=== PATIENT | female | born 1950 | race Caucasian/White ===

== ENCOUNTER 2024-03-05 11:39 | Inpatient (IN) ==
[2024-03-05 13:43] LABS: Albumin Globulin Ratio 0.9 (0.9-2); Albumin Level 2.2 gm/dl (3.4-5.0); BUN Creatinine Ratio 23.7 (10-20); Bilirubin,Total 3.6 mg/dl (0.2-1.0); Calcium 7.4 mg/dl (8.6-10.3); Creatinine Clr Calc Pharmacy 49.5 ml/min; Globulin 2.4 gm/dl (2.5-4.0); Magnesium 1.5 mg/dl (1.7-2.4); Potassium 3.2 mmol/L (3.5-5.1); Total Protein 4.6 gm/dl (6.0-8.3)
[2024-03-05 13:48] LABS: INR 1.3 (0.9-1.1); Prothrombin Time 13.9 Seconds (9.0-12.0)
[2024-03-05] MEDS: SODIUM CHLORIDE 0.9% 500 ML IV SCH (14:08)
[2024-03-05] MEDS: MAGNESIUM SULFATE / D5W 1 GM/100 ML BAG IV STA (14:08)
[2024-03-05 14:22] LABS: Hematocrit (blood only) 21.5 % (37.0-47.0); Hemoglobin 7.1 g/dl (12.0-16.0); Mean Corpuscular Hemoglobin 28.4 pg (25.0-34.0); Platelet Count 6 K/uL (130-400); RDW Coefficient of Variation 15.3 % (11.5-14.5); RDW Standard Deviation 48.2 fL (36.4-46.3); White Blood Count 0.67 K/ul (4.8-10.8)
--- NOTE | 2024-03-05 14:38 | Emergency Department Note ---
Impression & Plan Pancytopenia ED Provider Note ED Provider Note NAME: XENIA BOYD AGE:73 SEX: Female : 1950 ARRIVES VIA: Private vehicle INFORMANT: Patient ED PROVIDER(s): Lee Ann Chen DO CHIEF COMPLAINT: Referred by oncology HPI: This is a 73-year-old female with a history of CML who presents emerged department at the referral of her oncologist due to concern for need for transfusion. Family bedside states she has been getting outpatient transfusions frequently since her diagnosis. Her last chemo treatment was the beginning of February and she is due again soon. She denies fevers/chills, shortness of breath, vomiting, or abdominal pain. She states she recently had swelling of her lower extremities and now has bruising due to her low platelets. During her last admission she was told to stop taking her prior blood thinning medication. She does not currently take any aspirin, Plavix, or other anticoagulation. PAST MEDICAL HISTORY:See Below PAST SURGICAL HISTORY:See Below FAMILY HISTORY:See Below SOCIAL HISTORY:See Below HOME MEDICATIONS:See Below ALLERGIES:See Below VITALS:See Below PHYSICAL EXAMINATION: GENERAL: alert, well appearing, well nourished, no distress, non-toxic HEAD: nc/at, small ecchymotic area noted superior to left eyebrow at inferior left forehead EYE EXAM: normal conjunctiva, PERRL and EOM's grossly intact OROPHARYNX: no exudate, no erythema, lips, buccal mucosa, and tongue normal and mucous membranes are moist, poor dentition NECK: supple, no nuchal rigidity, no adenopathy, non-tender LUNGS: Clear to auscultation. Normal chest wall mechanics, no w/r/r HEART: no murmurs, S1 normal and S2 normal ABDOMEN: abdomen soft, non-tender, normo-active bowel sounds, no masses, no rebound or guarding. SKIN: no rashes, petechiae, orbruising UPPER EXTREMITIES: upper extremities are grossly normal. FROM, nml pulses b/l. Scattered and marked areas noted to upper extremities additionally LOWER EXTREMITIES: 2+ b/l pitting edema. B/l macular ecchymotic areas, FROM, nml pulses b/l. NEURO EXAM: Normal sensorium, cranial nerves II-XII grossly intact, normal speech, no facial droop,nogross weakness of arms, no gross weakness of legs. Gross sensation intact. No ataxia. Vital Signs: reviewed and remarkable Differential Diagnosis: Anemia, worsening malignancy, medication ADR, acute blood loss, sepsis, CKD, as well as others were considered MEDICAL DECISION MAKING: This is a 73-year-old female sent to the emergency department by oncology for transfusions as they were unable to arrange for her to have outpatient transfusions. Patient with history of leukemia and has been getting routine transfusions. She was noted on labs to have anemia and thrombocytopenia which is not abnormal for her. She was afebrile vital signs stable. She had no new or evolving symptoms on my exam and stated she was sent in to be transfused. We did attempt to contact patient's primary oncologist however no return call. I did contact our on-call oncologist here who recommended 1 unit of platelets and 1 unit of packed red cells. Transfusion consent form signed at bedside, and these were ordered. Transfusion was began while patient was in the emergency department. She remained hemodynamically stable. She had no new or evolving complaints. Patient signed out to Dr. Vieira awaiting completion of transfusion and recheck of her condition with plan for likely discharge pending any other changes. Consultation(s): 1508: Discussed with Dr. Zepeda. No return call from patient's primary oncologist, Dr. Reyes. She recommends 1 unit of platelets and 1 unit of packed red cells at this time. She states if patient does well through the transfusions, she could safely be discharged as that is typically the pain for these patients when they are sent to the [facility] for transfusions. ER Treatment Provided: See below 3735: Patient and family updated on discussion with oncology. Patient's transfusions actively occurring. Diagnostics Interpreted By Me: -ECG: Normal sinus at 93, normal axis, normal intervals, PAC noted, no acute ST/T wave changes -Cardiac Monitoring: An order was placed for continuous cardiac monitoring. The monitor shows a rate of 82 with normal sinus rhythm. -Laboratory studies: As stated above and show below. Triage Nursing Note Reviewed Prior/Outside Records Reviewed Critical care: Critical care of 39 min performed to assess and manage high likelihood of life- threatening pancytopenia, involving labs and imaging performed with assessment to evaluate pancytopenia diagnosis with frequent reassessment. This time includes bedside time, treatment discussions with patient/family/consultants, documentation time and excludes procedure time. Past Med/Surg History Problem List (Updated 03/06/24 @ 15:04 by WEI Murphy) Sacral ulcer CMML (chronic myelomonocytic leukemia) AML (acute myeloblastic leukemia) Acute hypoxemic respiratory failure Pancytopenia (Acute) Social History Smoking Status: Never smoker Hx Alcohol Use: No Hx Substance Use: No Preferred Language: Lithuanian Communication Ability: Effective [employer] Required: No Beliefs That Will Affect Care: None Current Living Situation: Rehab Current Living Situation Comment: [facility] currently, home [place]. Other Information That Helps Us Care for You: No Feels Safe at Home: Yes Safety Concerns: Feels Safe At This Time Assistive Devices: Cane and Walker Assistive Devices Comment: Shower chair Allergies Allergies Allergy/AdvReac Type Severity Reaction Status Date / Time pollen extracts Allergy Unknown UNKOWN Unverified 03/05/24 18:46 Home Meds Home Medications Medication Instructions Recorded Confirmed acetaminophen 325 mg tablet 650 mg PO Q6H PRN Fever greater 01/27/24 03/05/24 (Tylenol) than 100/Pain acyclovir 400 mg tablet 400 mg PO BID 01/27/24 03/05/24 bisacodyl 10 mg rectal suppository 10 mg IA DIRECTED PRN 01/27/24 03/05/24 Constipation cholecalciferol (vitamin D3) 25 25 mcg PO QAM 01/27/24 03/05/24 mcg (1,000 unit) tablet ciprofloxacin HCl 500 mg tablet 500 mg PO BID 01/27/24 03/05/24 folic acid 1 mg tablet 1 mg PO QAM 01/27/24 03/05/24 furosemide 40 mg tablet 40 mg PO QAM 01/27/24 03/05/24 multivitamin 1 tab PO QAM 01/27/24 03/05/24 ondansetron 4 mg disintegrating 4 mg PO Q6H PRN NAUSEA/VOMITTING 01/27/24 03/05/24 tablet pantoprazole 40 mg tablet,delayed 40 mg PO DAILYBB 01/27/24 03/05/24 release posaconazole 100 mg tablet,delayed See Rx Instructions .Route .COMPLEX 01/27/24 03/05/24 release sodium phosphates 19 gram-7 118 ml IA DAILY PRN CONSTIPATION 01/27/24 03/05/24 gram/118 mL enema (Fleet Enema) Magic Mix See Rx Instructions .Route .COMPLEX 03/05/24 03/05/24 calcium carbonate 500 mg PO QDL 03/05/24 03/05/24 carbamide peroxide 6.5 % ear drops 5 drp otic (ear) BID 03/05/24 03/05/24 (Debrox) magnesium hydroxide 400 mg/5 mL 2,400 mg PO DAILY PRN Constipation 03/05/24 03/05/24 oral suspension (Milk of Magnesia) metoprolol succinate 100 mg 100 mg PO DAILY 03/05/24 03/05/24 capsule sprinkle, ext. release 24 hr polyvinyl alcohol 1.4 % eye drops 1 drp OPB Q8H Blepharitis 03/05/24 03/05/24 (Artificial Tears (polyvinyl alcohol)) potassium chloride 20 mEq/15 mL 60 meq PO Q12H 03/05/24 03/05/24 oral liquid Results & Data (ED) Vital Signs Vital Signs - 24 hr 03/05/24 17:30 03/05/24 17:30 03/05/24 17:45 Temperature Temperature Source Pulse Rate 67 69 74 Pulse Rate [Apical] Pulse Rate from SpO2 Sensor 73 79 Pulse Rhythm [Apical] Pulse Strength [Apical] Respiratory Rate 24 29 H Respiratory Effort / Characteristics Respiratory Depth Respiratory Pattern Blood Pressure Blood Pressure [Right Arm] Blood Pressure Mean Blood Pressure Mean [Right Arm] Blood Pressure Position [Right Arm] Pulse Oximetry 98 98 Oxygen Delivery Method 03/05/24 18:21 03/05/24 18:30 03/05/24 19:00 Temperature Temperature Source Pulse Rate 80 105 H 72 Pulse Rate [Apical] Pulse Rate from SpO2 Sensor 67 69 78 Pulse Rhythm [Apical] Pulse Strength [Apical] Respiratory Rate 27 H 34 H 26 H Respiratory Effort / Characteristics Respiratory Depth Respiratory Pattern Blood Pressure Blood Pressure [Right Arm] Blood Pressure Mean Blood Pressure Mean [Right Arm] Blood Pressure Position [Right Arm] Pulse Oximetry 97 97 97 Oxygen Delivery Method Room Air 03/05/24 19:30 03/05/24 20:05 03/05/24 20:30 Temperature 36.8 C Temperature Source Oral Pulse Rate 66 Pulse Rate [Apical] 66 Pulse Rate from SpO2 Sensor 66 Pulse Rhythm [Apical] Regular Pulse Strength [Apical] Normal Respiratory Rate 20 22 Respiratory Effort / Characteristics Non-Labored Spontaneous Respiratory Depth Normal Respiratory Pattern Regular Blood Pressure 106/46 L Blood Pressure [Right Arm] 119/66 Blood Pressure Mean 71 Blood Pressure Mean [Right Arm] 83 Blood Pressure Position [Right Arm] Sitting Pulse Oximetry 97 98 Oxygen Delivery Method Room Air Room Air 03/05/24 20:30 03/05/24 20:30 03/05/24 20:42 Temperature Temperature Source Pulse Rate Pulse Rate [Apical] Pulse Rate from SpO2 Sensor 64 66 Pulse Rhythm [Apical] Pulse Strength [Apical] Respiratory Rate 27 H 28 H Respiratory Effort / Characteristics Respiratory Depth Respiratory Pattern Blood Pressure 106/46 L 106/46 L Blood Pressure [Right Arm] Blood Pressure Mean 71 66 Blood Pressure Mean [Right Arm] Blood Pressure Position [Right Arm] Pulse Oximetry 99 99 Oxygen Delivery Method 03/05/24 20:57 03/05/24 21:00 03/05/24 22:11 Temperature Temperature Source Pulse Rate 102 H 73 85 Pulse Rate [Apical] Pulse Rate from SpO2 Sensor 103 H 66 Pulse Rhythm [Apical] Pulse Strength [Apical] Respiratory Rate 32 H 25 H Respiratory Effort / Characteristics Respiratory Depth Respiratory Pattern Blood Pressure Blood Pressure [Right Arm] Blood Pressure Mean Blood Pressure Mean [Right Arm] Blood Pressure Position [Right Arm] Pulse Oximetry 100 86 L Oxygen Delivery Method 03/05/24 23:15 Temperature Temperature Source Pulse Rate 65 Pulse Rate [Apical] Pulse Rate from SpO2 Sensor Pulse Rhythm [Apical] Pulse Strength [Apical] Respiratory Rate 20 Respiratory Effort / Characteristics Respiratory Depth Respiratory Pattern Blood Pressure 112/61 Blood Pressure [Right Arm] Blood Pressure Mean 78 Blood Pressure Mean [Right Arm] Blood Pressure Position [Right Arm] Pulse Oximetry 100 Oxygen Delivery Method Room Air Laboratory Data 03/06/24 14:35 03/06/24 14:35 Lab Results 03/05/24 Range/Units 13:04 WBC 0.67 L* (4.8-10.8) K/ul RBC 2.50 L (4.20-5.40) M/uL Hgb 7.1 L (12.0-16.0) g/dl Hct 21.5 L (37.0-47.0) % MCV 86.0 (80.0-100.0) fL MCH 28.4 (25.0-34.0) pg MCHC 33.0 (32.0-36.0) g/dL RDW Std Deviation 48.2 H (36.4-46.3) fL RDW Coeff of Juan Pablo 15.3 H (11.5-14.5) % Plt Count 6 L* (130-400) K/uL Neutrophils % (Manual) 36 % Lymphocytes % (Manual) 45 % Metamyelocytes % (Man) 13 % Myelocytes % (Man) 5 % Promyelocytes % (Man) 1 % Neutrophils # (Manual) 0.24 L (1.40-6.50) K/uL Total Absolute Neuts 0.24 L* (1.4-6.5) K/uL Lymphocytes # (Manual) 0.30 L (1.2-3.4) K/uL Total Abs Lymphocytes 0.30 L (1.2-3.4) K/uL Metamyelocytes # (Man) 0.09 H (0-0) K/uL Myelocytes # (Manual) 0.03 H (0-0) K/uL Promyelocytes # (Man) 0.01 H (0-0) K/uL Toxic Granulation 3+ Toxic Vacuolation Occasional Dohle Bodies 3+ Target Cells 1+ Tear Drop Cells 1+ Echinocytes 1+ PT 13.9 H (9.0-12.0) Seconds INR 1.3 H (0.9-1.1) Sodium 148 H (136-145) mmol/L Potassium 3.2 L (3.5-5.1) mmol/L Chloride 117 H (98-107) mmol/L Carbon Dioxide 24 (21-32) mmol/L Anion Gap 7 (3-11) BUN 22 (6-23) mg/dl Creatinine 0.93 (0.6-1.2) mg/dl Est Cr Clr Drug Dosing 49.5 ml/min eGFR 64.50 BUN/Creatinine Ratio 23.7 H (10-20) Glucose 107 H (70-99(Fasting)) mg/dl Calcium 7.4 L (8.6-10.3) mg/dl Magnesium 1.5 L (1.7-2.4) mg/dl Total Bilirubin 3.6 H (0.2-1.0) mg/dl AST 33 (13-39) U/L ALT 47 (7-52) U/L Alkaline Phosphatase 53 (34-104) U/L Total Protein 4.6 L (6.0-8.3) gm/dl Albumin 2.2 L (3.4-5.0) gm/dl Globulin 2.4 L (2.5-4.0) gm/dl Albumin/Globulin Ratio 0.9 (0.9-2) Lipase 5 L (11-82) U/L TSH 4.971 H (0.300-4.500) uIu/ml Free T4 1.55 (0.61-1.60) ng/dl Blood Type A Positive Antibody Screen NEGATIVE Crossmatch See Detail Administered Medications Acyclovir (Acyclovir 400 Mg Tab) 400 mg PO BID LEONARDO Stop: 04/05/24 08:59 Last Admin: 03/06/24 08:50 Dose: 400 mg Documented By: AMB Artificial Tears (Artificial Tears) 1 drops OP Q8H LEONARDO Stop: 04/05/24 03:59 Last Admin: 03/06/24 13:15 Dose: 1 drops Documented By: Admin: 03/06/24 05:18 Dose: Not Given Documented By: NICK Cholestyramine Resin (Cholestyramine Light 4 Gm Pkt) 4 gm PO BID@1000,2200 LEONARDO Stop: 04/05/24 12:29 Last Admin: 03/06/24 15:45 Dose: 4 gm Documented By: AMB Ciprofloxacin (Ciprofloxacin 500 Mg Tab) 500 mg PO BID [facility]; Protocol Stop: 04/05/24 08:59 Last Admin: 03/06/24 08:50 Dose: 500 mg Documented By: AMB Sodium Chloride (1/2 Nss) 1,000 mls @ 50 mls/hr IV .Q20H LEONARDO Stop: 03/07/24 04:44 Last Admin: 03/06/24 09:15 Dose: 50 mls/hr Documented By: AMB Cefepime HCl (Maxipime 2000mg) 2,000 mg in 20 mls @ 5 mls/min IV Q12 LEONARDO Stop: 03/13/24 10:44 Last Admin: 03/06/24 11:48 Dose: 5 mls/min Documented By: AMB Lactobacillus Acidophilus (Advanced Probiotic 625 Mg Capsule) 1,250 mg PO DAILY LEONARDO Stop: 04/05/24 10:29 Last Admin: 03/06/24 11:47 Dose: 1,250 mg Documented By: AMB Metoprolol Succinate (Metoprolol Succ 25mg Ext Rel Tab) 25 mg PO DAILY LEONARDO Stop: 04/05/24 08:59 Last Admin: 03/06/24 08:50 Dose: 25 mg Documented By: KRIS Miscellaneous (Order Awaiting Action: Posaconazole Dr Tablet) 1 each N/A QS [facility] Stop: 04/05/24 07:59 Last Admin: 03/06/24 16:48 Dose: Not Given Documented By: Admin: 03/06/24 08:48 Dose: Not Given Documented By: KRIS Multivitamins (Multivitamin Tab) 1 tab PO QAM LEONARDO Stop: 04/05/24 08:59 Last Admin: 03/06/24 08:50 Dose: 1 tab Documented By: KRIS Pantoprazole Sodium (Pantoprazole 40 Mg Tab) 40 mg PO DAILYBB [facility] Stop: 04/05/24 06:29 Last Admin: 03/06/24 06:31 Dose: 40 mg Documented By: ERNESTO Psyllium Hydrophilic Mucilloid (Psyllium Or Guar Gum Fiber 4gm Packet) 4 gm PO QAM [facility] Stop: 04/05/24 12:29 Last Admin: 03/06/24 15:45 Dose: 4 gm Documented By: KRIS Discontinued Medications Albuterol (Albut/Ipratrop 3mg/0.5mg Neb 3 Ml Vial) 3 ml NEB NOW STA; Protocol Stop: 03/05/24 23:54 Last Admin: 03/06/24 01:02 Dose: 3 ml Documented By: KATERINE Furosemide (Furosemide Inj 20 Mg/2 Ml Vial) 20 mg IV ONE ONE Stop: 03/05/24 23:54 Last Admin: 03/06/24 01:03 Dose: 20 mg Documented By: KATERINE Sodium Chloride (Nss) 500 mls @ 80 mls/hr IV .Q6H15M [facility] Stop: 04/04/24 13:59 Last Infusion: 03/05/24 20:23 Dose: Infused Documented By: [facility] Admin: 03/05/24 20:15 Dose: Not Given Documented By: [facility] Admin: 03/05/24 14:08 Dose: 80 mls/hr Documented By: WILNER Magnesium Sulfate/Dextrose (Magnesium Sulfate / D5w) 1 gm in 100 mls @ 100 mls/hr IV NOW STA Stop: 03/05/24 14:50 Last Infusion: 03/05/24 15:08 Dose: Infused Documented By: Admin: 03/05/24 14:08 Dose: 100 mls/hr Documented By: WILNER Magnesium Sulfate/Dextrose (Magnesium Sulfate / D5w) 1 gm in 100 mls @ 50 mls/hr IV ONE ONE Stop: 03/06/24 01:16 Last Infusion: 03/06/24 04:08 Dose: Infused Documented By: Admin: 03/06/24 01:03 Dose: 50 mls/hr Documented By: KATERINE Albumin Human (Albumin 25%) 12.5 gm in 50 mls @ 50 mls/hr IV ONE ONE Stop: 03/06/24 00:52 Last Infusion: 03/06/24 02:03 Dose: Infused Documented By: Admin: 03/06/24 01:03 Dose: 50 mls/hr Documented By: KATERINE Albumin Human (Albumin 25%) 12.5 gm in 50 mls @ 50 mls/hr IV ONE ONE Stop: 03/06/24 05:54 Last Infusion: 03/06/24 07:12 Dose: Infused Documented By: Admin: 03/06/24 06:13 Dose: 50 mls/hr Documented By: ERNESTO Digoxin 250 mcg/ Syringe 10 mls @ 2 mls/min IV NOW STA Stop: 03/06/24 05:50 Last Admin: 03/06/24 06:25 Dose: Not Given Documented By: NICK Digoxin 250 mcg/ Syringe 10 mls @ 2 mls/min IV NOW ONE Stop: 03/06/24 06:55 Last Admin: 03/06/24 06:56 Dose: 2 mls/min Documented By: NICK Potassium Chloride (K Billy / Wtr) 10 meq in 100 mls @ 100 mls/hr IV Q1H LEONARDO Stop: 03/06/24 13:14 Last Admin: 03/06/24 16:48 Dose: 100 mls/hr Documented By: Infusion: 03/06/24 16:46 Dose: Infused Documented By: Admin: 03/06/24 15:46 Dose: 100 mls/hr Documented By: Infusion: 03/06/24 13:32 Dose: Infused Documented By: Admin: 03/06/24 12:32 Dose: 100 mls/hr Documented By: Infusion: 03/06/24 12:32 Dose: Infused Documented By: Admin: 03/06/24 11:47 Dose: 100 mls/hr Documented By: AMB Vancomycin HCl 1,500 mg/ (Sodium Chloride) 530 mls @ 200 mls/hr IV ONE ONE Stop: 03/06/24 13:08 Last Admin: 03/06/24 13:15 Dose: 200 mls/hr Documented By: AMB Potassium Chloride (Potassium Chloride Pwd 20 Meq Pack) 40 meq PO NOW STA Stop: 03/05/24 23:18 Last Admin: 03/06/24 01:01 Dose: 40 meq Documented By: MBL Potassium Chloride (Potassium Chloride Pwd 20 Meq Pack) 40 meq PO ONE ONE Stop: 03/06/24 01:01 Last Admin: 03/06/24 01:02 Dose: 40 meq Documented By: MBL Potassium Chloride (Potassium Chloride Crtab 20 Meq Tabcr) 40 meq PO Q2H LEONARDO Stop: 03/06/24 10:46 Last Admin: 03/06/24 08:48 Dose: 40 meq Documented By: KRIS Imaging Data Radiologist's Impression: Chest X-Ray 03/05/24 23:16 XR chest 1V portable HISTORY: 73 years-old Female low o2 acute hypoxia COMPARISON: 01/27/2024 TECHNIQUE: AP view of the chest FINDINGS: Cardiac silhouette is enlarged. A battery pack projects over the left chest wall. Pulmonary vascular congestion with interstitial coarsening. Trace right and small left pleural effusions with mild bibasilar densities. Bones appear grossly intact. IMPRESSION: 1. Cardiomegaly with suggestion of interstitial pulmonary edema. 2. Trace right and small left pleural effusions with mild bibasilar atelectasis. ACT 112: Negative or not required by law. The above report was generated using voice recognition software. It may contain grammatical, syntax or spelling errors. Electronically signed by: Og Rogers M.D. 03/06/2024 6:54 AM Discharge Plan Visit Data Chief Complaint: Abnormal Labs/Diagnostic Testing Stated Complaint: SENT FOR BLOOD TRANSFUSION ED Provider: Ramon Vieira Discharge Problem: Pancytopenia Patient Disposition: Admitted As Inpatient Condition: Good Discharge Instructions Interventions: ED Discharge Assessment Last Done: 03/06/24 02:28
[2024-03-05] MEDS ORDERED: SODIUM CHLORIDE 0.9% 250 ML IV PRN ×2 (15:05→23:59)
[2024-03-05 15:51] LABS: ANC (manual) 0.24 K/uL (1.4-6.5); Dohle Bodies 3+; Echinocytes 1+; Lymphocytes % (manual) 45 %; Metamyelocytes # (manual) 0.09 K/uL (0-0); Metamyelocytes % (manual) 13 %; Myelocytes # (manual) 0.03 K/uL (0-0); Myelocytes % (manual) 5 %; Neutrophils # (manual) 0.24 K/uL (1.40-6.50); Neutrophils % (manual) 36 %; Promyelocytes # (manual) 0.01 K/uL (0-0); Promyelocytes % (manual) 1 %; Target Cells 1+; Tear Drop Cells 1+; Toxic Granulation 3+; Toxic Vacuolation Occasional
--- NOTE | 2024-03-05 16:43 | Electrocardiogram Report ---
Test Reason : Blood Pressure : */* mmHG Vent. Rate : 93 BPM Atrial Rate : 82 BPM P-R Int : 140 ms QRS Dur : 72 ms QT Int : 382 ms P-R-T Axes : 66 36 63 degrees QTcB Int : 474 ms Sinus rhythm with Premature supraventricular complexes Abnormal ECG When compared with ECG of 27-Jan-2024 14:33, Sinus rhythm has replaced Atrial fibrillation Nonspecific T wave abnormality, improved in Anterior leads Confirmed by Laron Bojorquez ([id number]) on 03/05/2024 4:43:27 PM Referred By: Vitaliy Cobos Confirmed By: Laron Bojorquez
[2024-03-05 23:51] LABS: Thyroid Stimulating Hormone 4.971 uIu/ml (0.300-4.500)
--- NOTE | 2024-03-05 23:51 | History & Physical Report ---
Date of Service March 05, 2024 Assessment & Plan (1) Acute hypoxemic respiratory failure: Plan: Secondary to CHF PAF, patient NSR, currently not on anticoagulation hypertension, BP on the lower side hx GERD CML ongoing chemotherapy on anti-infective prophylaxis Rheumatoid arthritis as per records chronic pancytopenia secondary to above Hypokalemia and hypomagnesemia secondary to diarrhea rule out infectious source Admit to PCU Supplemental O2 Diuretic Rx Strict I/Os, daily weights, CHF education Decrease maintenance beta-deirdre dose Retrieve [facility] records of recent confinement regarding cardiac workup done at facility. Patient may need inpatient cardiology eval. Hematology consult re: pancytopenia Replace electrolytes Stool CS, stool C. difficile DVT prophylaxis. SCDs Re: Thrombocytopenia DNR Patient requests for for daughter to be given updates regarding care. Ms. Alma Dillard, contact #[phone]. Total critical care time was 35 minutes. Text document was generated using Brainlike voice recognition software. It may contain grammatical or spelling errors. Kindly contact undersigned for clarification of any documentation item in question. History of Present Illness Chief Complaint: Blood transfusion Primary Care Provider: Marlon Wong MD History obtained from patient, family, and records. Medical history significant for PAF currently not on anticoagulation, hypertension, GERD, CML ongoing chemotherapy on anti-infective prophylaxis, chronic pancytopenia, rheumatoid arthritis. Recent [facility] ER visit last January 2024 for acute CHF and blast crisis. Patient transferred to [facility] in [place] for further management. Patient subsequently confined for 1 month. Patient seen by pharmacy innovation assistant during stay as per family. Patient told cancer issues were more serious than heart problem as per family. Patient discharged to [facility] facility for rehab 2 weeks ago. Patient directed to ER today because of hemoglobin of 7.5, platelets of 5 on outpatient blood draw yesterday. Patient denies unusual chest pain, SOB, or bleeding symptoms. Loose stools as per patient. Has actually lost more than 20 pounds since confinement at [facility] as per patient. Lowest O2 sats of 80s documented at the ER. 1 unit PRBC transfused at the ER. 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 Allergies Allergy/AdvReac Type Severity Reaction Status Date / Time pollen extracts Allergy Unknown UNKOWN Unverified 03/05/24 18:46 Home Medications Medication Instructions Recorded Confirmed Type acetaminophen 325 mg tablet 650 mg PO Q6H PRN Fever greater 01/27/24 03/05/24 History (Tylenol) than 100/Pain acyclovir 400 mg tablet 400 mg PO BID 01/27/24 03/05/24 History bisacodyl 10 mg rectal suppository 10 mg SD DIRECTED PRN 01/27/24 03/05/24 History Constipation cholecalciferol (vitamin D3) 25 25 mcg PO QAM 01/27/24 03/05/24 History mcg (1,000 unit) tablet ciprofloxacin HCl 500 mg tablet 500 mg PO BID 01/27/24 03/05/24 History folic acid 1 mg tablet 1 mg PO QAM 01/27/24 03/05/24 History furosemide 40 mg tablet 40 mg PO QAM 01/27/24 03/05/24 History multivitamin 1 tab PO QAM 01/27/24 03/05/24 History ondansetron 4 mg disintegrating 4 mg PO Q6H PRN NAUSEA/VOMITTING 01/27/24 03/05/24 History tablet pantoprazole 40 mg tablet,delayed 40 mg PO DAILYBB 01/27/24 03/05/24 History release posaconazole 100 mg tablet,delayed See Rx Instructions .Route .COMPLEX 01/27/24 03/05/24 History release sodium phosphates 19 gram-7 118 ml SD DAILY PRN CONSTIPATION 01/27/24 03/05/24 History gram/118 mL enema (Fleet Enema) Magic Mix See Rx Instructions .Route .COMPLEX 03/05/24 03/05/24 History calcium carbonate 500 mg PO QDL 03/05/24 03/05/24 History carbamide peroxide 6.5 % ear drops 5 drp otic (ear) BID 03/05/24 03/05/24 History (Debrox) magnesium hydroxide 400 mg/5 mL 2,400 mg PO DAILY PRN Constipation 03/05/24 03/05/24 History oral suspension (Milk of Magnesia) metoprolol succinate 100 mg 100 mg PO DAILY 03/05/24 03/05/24 History capsule sprinkle, ext. release 24 hr polyvinyl alcohol 1.4 % eye drops 1 drp OPB Q8H Blepharitis 03/05/24 03/05/24 History (Artificial Tears (polyvinyl alcohol)) potassium chloride 20 mEq/15 mL 60 meq PO Q12H 03/05/24 03/05/24 History oral liquid Past Med/Surg History Problem List (Updated 03/06/24 @ 03:12 by Hemanth Alfaro MD) Acute hypoxemic respiratory failure Pancytopenia (Acute) Social History Smoking Status: Never smoker Hx Alcohol Use: No Hx Substance Use: No Preferred Language: Bruneian Communication Ability: Effective Farm Advisor Required: No Beliefs That Will Affect Care: None Current Living Situation: Rehab Current Living Situation Comment: [facility] currently, home [place]. Other Information That Helps Us Care for You: No Feels Safe at Home: Yes Safety Concerns: Feels Safe At This Time Assistive Devices: Glasses, Walker and Other Assistive Devices Comment: Shower chair Review of Systems Review of Systems: As per HPI, all other systems reviewed and negative Physical Exam Physical Exam: GENERAL: uncomfortable, episodic tachypnea, anxious, no respiratory distress SKIN: Pallor, warm HEENT: Pale palpebral conjunctivae, no ptosis, dry buccal mucosa, nasal cannula in place NECK : Supple, no tenderness CHEST : Decreased breath sounds, no tenderness HEART : tachycardic, no obvious murmurs ABDOMEN: Some distention, nontender EXTREMITIES : Bilateral LE erythema without tenderness, no other conspicuous deformities noted NEUROLOGIC : Coherent, no facial asymmetry, no other gross focality Results & Data Results & Data Vital Signs (Past 12 Hours) Vital Signs Temp Pulse Pulse Resp BP BP Pulse Ox 03/05/24 22:11 85 03/05/24 21:00 73 25 H 86 L 03/05/24 20:57 102 H 32 H 100 03/05/24 20:42 28 H 99 03/05/24 20:30 27 H 106/46 L 99 03/05/24 20:30 106/46 L 03/05/24 20:30 106/46 L 03/05/24 20:05 36.8 C 66 22 119/66 98 03/05/24 19:30 66 20 97 03/05/24 19:00 72 26 H 97 03/05/24 18:30 105 H 34 H 97 03/05/24 18:21 80 27 H 97 03/05/24 17:45 74 29 H 98 03/05/24 17:30 69 24 98 10/03/24 17:30 67 03/05/24 17:12 26 H 97 03/05/24 17:00 77 29 H 98 03/05/24 16:48 26 H 97 03/05/24 16:35 37.3 C 70 20 108/54 L 97 03/05/24 16:27 27 H 97 03/05/24 16:23 108/54 L 03/05/24 16:23 108/54 L 03/05/24 16:23 36.7 C 70 24 108/54 L 98 03/05/24 16:21 94 H 30 H 98 03/05/24 16:15 66 20 97 03/05/24 16:09 95/50 L 03/05/24 16:08 36.8 C 67 26 H 95/50 L 97 03/05/24 15:54 92 H 29 H 97 03/05/24 15:45 72 25 H 03/05/24 15:30 27 H 03/05/24 15:24 104 H 36 H 03/05/24 15:18 32 H 03/05/24 14:51 103 H 39 H 03/05/24 14:48 79 26 H 03/05/24 14:30 79 22 03/05/24 14:21 94 H 29 H 03/05/24 14:12 75 21 105/50 L 95 03/05/24 14:00 86 27 H 03/05/24 13:36 29 H 03/05/24 13:22 86 03/05/24 13:21 76 33 H 03/05/24 13:15 57 H 03/05/24 13:03 87 28 H 03/05/24 12:45 20 03/05/24 12:33 89 30 H O2 Del Method 03/05/24 22:11 03/05/24 21:00 03/05/24 20:57 03/05/24 20:42 03/05/24 20:30 03/05/24 20:30 03/05/24 20:30 03/05/24 20:05 Room Air 03/05/24 19:30 Room Air 03/05/24 19:00 Room Air 03/05/24 18:30 03/05/24 18:21 03/05/24 17:45 03/05/24 17:30 03/05/24 17:30 03/05/24 17:12 03/05/24 17:00 03/05/24 16:48 03/05/24 16:35 03/05/24 16:27 03/05/24 16:23 03/05/24 16:23 03/05/24 16:23 03/05/24 16:21 03/05/24 16:15 03/05/24 16:09 03/05/24 16:08 03/05/24 15:54 03/05/24 15:45 03/05/24 15:30 03/05/24 15:24 03/05/24 15:18 03/05/24 14:51 03/05/24 14:48 03/05/24 14:30 03/05/24 14:21 03/05/24 14:12 Room Air 03/05/24 14:00 03/05/24 13:36 03/05/24 13:22 03/05/24 13:21 03/05/24 13:15 03/05/24 13:03 03/05/24 12:45 03/05/24 12:33 Laboratory Results Laboratory Results WBC 0.67 K/ul (4.8-10.8) L* 03/05/24 13:04 RBC 2.50 M/uL (4.20-5.40) L 03/05/24 13:04 Hgb 7.1 g/dl (12.0-16.0) L 03/05/24 13:04 Hct 21.5 % (37.0-47.0) L 03/05/24 13:04 MCV 86.0 fL (80.0-100.0) 03/05/24 13:04 MCH 28.4 pg (25.0-34.0) 03/05/24 13:04 MCHC 33.0 g/dL (32.0-36.0) 03/05/24 13:04 RDW Std Deviation 48.2 fL (36.4-46.3) H 03/05/24 13:04 RDW Coeff of Juan Pablo 15.3 % (11.5-14.5) H 03/05/24 13:04 Plt Count 6 K/uL (130-400) L* 03/05/24 13:04 Neutrophils % (Manual) 36 % 03/05/24 13:04 Lymphocytes % (Manual) 45 % 03/05/24 13:04 Metamyelocytes % (Man) 13 % 03/05/24 13:04 Myelocytes % (Man) 5 % 03/05/24 13:04 Promyelocytes % (Man) 1 % 03/05/24 13:04 Neutrophils # (Manual) 0.24 K/uL (1.40-6.50) L 03/05/24 13:04 Total Absolute Neuts 0.24 K/uL (1.4-6.5) L* 03/05/24 13:04 Lymphocytes # (Manual) 0.30 K/uL (1.2-3.4) L 03/05/24 13:04 Total Abs Lymphocytes 0.30 K/uL (1.2-3.4) L 03/05/24 13:04 Metamyelocytes # (Man) 0.09 K/uL (0-0) H 03/05/24 13:04 Myelocytes # (Manual) 0.03 K/uL (0-0) H 03/05/24 13:04 Promyelocytes # (Man) 0.01 K/uL (0-0) H 03/05/24 13:04 Toxic Granulation 3+ 03/05/24 13:04 Toxic Vacuolation Occasional 03/05/24 13:04 Dohle Bodies 3+ 03/05/24 13:04 Target Cells 1+ 03/05/24 13:04 Tear Drop Cells 1+ 03/05/24 13:04 Echinocytes 1+ 03/05/24 13:04 PT 13.9 Seconds (9.0-12.0) H 03/05/24 13:04 INR 1.3 (0.9-1.1) H 03/05/24 13:04 Sodium 148 mmol/L (136-145) H 03/05/24 13:04 Potassium 3.2 mmol/L (3.5-5.1) L 03/05/24 13:04 Chloride 117 mmol/L (98-107) H 03/05/24 13:04 Carbon Dioxide 24 mmol/L (21-32) 03/05/24 13:04 Anion Gap 7 (3-11) 03/05/24 13:04 BUN 22 mg/dl (6-23) 03/05/24 13:04 Creatinine 0.93 mg/dl (0.6-1.2) 03/05/24 13:04 Est Cr Clr Drug Dosing 49.5 ml/min 03/05/24 13:04 eGFR 64.50 03/05/24 13:04 BUN/Creatinine Ratio 23.7 (10-20) H 03/05/24 13:04 Glucose 107 mg/dl (70-99(Fasting)) H 03/05/24 13:04 Calcium 7.4 mg/dl (8.6-10.3) L 03/05/24 13:04 Magnesium 1.5 mg/dl (1.7-2.4) L 03/05/24 13:04 Total Bilirubin 3.6 mg/dl (0.2-1.0) H 03/05/24 13:04 AST 33 U/L (13-39) 03/05/24 13:04 ALT 47 U/L (7-52) 03/05/24 13:04 Alkaline Phosphatase 53 U/L (34-104) 03/05/24 13:04 Total Protein 4.6 gm/dl (6.0-8.3) L 03/05/24 13:04 Albumin 2.2 gm/dl (3.4-5.0) L 03/05/24 13:04 Globulin 2.4 gm/dl (2.5-4.0) L 03/05/24 13:04 Albumin/Globulin Ratio 0.9 (0.9-2) 03/05/24 13:04 Lipase 5 U/L (11-82) L 03/05/24 13:04 Blood Type A Positive 03/05/24 13:04 Antibody Screen NEGATIVE 03/05/24 13:04 Crossmatch See Detail 03/05/24 13:04 Diagnostic Findings Chest x-ray as per my interpretation cardiomegaly, minimal congestion EKG as per my interpretation : Rate 90, NSR, normal axis, T wave abnormalities septal leads, PVCs
[2024-03-06 00:27] LABS: T4 Free Thyroxine 1.55 ng/dl (0.61-1.60)
[2024-03-06 00:40] LABS: Base Excess VBG -1.3 mEq/L; HCO3 VBG 23 mmol/L; Oxygen Saturation VBG 65.8 %; PCO2 VBG 35 mmHg (38-50); PO2 VBG 35 mmHg; pH VBG 7.42 (7.36-7.41)
[2024-03-06] MEDS: POTASSIUM CHLORIDE PWD 20 MEQ PACK PO STA (01:01)
[2024-03-06] MEDS: ALBUT/IPRATROP 3MG/0.5MG NEB 3 ML VIAL NEB STA (01:02)
[2024-03-06] MEDS: POTASSIUM CHLORIDE PWD 20 MEQ PACK PO ONE (01:02)
[2024-03-06] MEDS: ALBUMIN 25% 12.5 GM/50 ML VIAL IV ONE ×2 (01:03→06:13)
[2024-03-06] MEDS: FUROSEMIDE INJ 20 MG/2 ML VIAL IV ONE (01:03)
[2024-03-06] MEDS: MAGNESIUM SULFATE / D5W 1 GM/100 ML BAG IV ONE (01:03)
[2024-03-06 04:06] LABS: Adenovirus F 40/41 PCR Not Detected (NotDetected); Astrovirus PCR Not Detected (NotDetected); Campylobacter PCR Not Detected (NotDetected); Cryptosporidium PCR Not Detected (NotDetected); Cyclospora cayetanensis PCR Not Detected (NotDetected); Entamoeba histolytica PCR Not Detected (NotDetected); Enteroaggregative E.coli(EAEC) Not Detected (NotDetected); Enteropathogenic E.coli (EPEC) Not Detected (NotDetected); Enterotoxigenic E.coli (ETEC) Not Detected (NotDetected); Giardia lamblia PCR Not Detected (NotDetected); Norovirus GI/GII PCR Not Detected (NotDetected); Plesiomonas shigelloides PCR Not Detected (NotDetected); Rotavirus A PCR Not Detected (NotDetected); Salmonella PCR Not Detected (NotDetected); Sapovirus PCR Not Detected (NotDetected); Shiga-like Toxin E.coli (STEC) Not Detected (NotDetected); Shigella/Enteroinvasive E.coli Not Detected (NotDetected); Vibrio cholerae PCR Not Detected (NotDetected); Vibrio species PCR Not Detected (NotDetected); Yersinia enterocolitica PCR Not Detected (NotDetected)
[2024-03-06] MEDS: ARTIFICIAL TEARS OP SCH (05:18)
[2024-03-06] MEDS: DIGOXIN 250 MCG in SYRINGE 9 ML IV STA (06:25)
[2024-03-06] MEDS: PANTOprazole 40 MG TAB PO SCH (06:31)
[2024-03-06] MEDS: DIGOXIN 250 MCG in SYRINGE 9 ML IV ONE (06:56)
--- NOTE | 2024-03-06 06:56 | XRay Report ---
XR chest 1V portable HISTORY: 73 years-old Female low o2 acute hypoxia COMPARISON: 01/27/2024 TECHNIQUE: AP view of the chest FINDINGS: Cardiac silhouette is enlarged. A battery pack projects over the left chest wall. Pulmonary vascular congestion with interstitial coarsening. Trace right and small left pleural effusions with mild bibas ilar densities. Bones appear grossly intact. IMPRESSION: 1. Cardiomegaly with suggestion of interstitial pulmonary edema. 2. Trace right and small left pleural effusions with mild bibasilar atelectasis. ACT 112: Negative or not required by law. The above report was generated using voice recognition software. It may contain grammatical, syntax o r spelling errors. Electronically signed by: Og Rogers M.D. 03/06/2024 6:54 AM
[2024-03-06 08:00] LABS: Hematocrit (blood only) 21.1 % (37.0-47.0); Mean Corpuscular Hemoglobin 28.3 pg (25.0-34.0); Mean Corpuscular Hgb Conc 33.2 g/dL (32.0-36.0); Mean Corpuscular Volume 85.4 fL (80.0-100.0); Mean Platelet Volume 10.9 fL (9.4-12.4); Platelet Count 20 K/uL (130-400); RDW Coefficient of Variation 15.1 % (11.5-14.5); RDW Standard Deviation 46.4 fL (36.4-46.3); Red Blood Count 2.47 M/uL (4.20-5.40); White Blood Count 0.69 K/ul (4.8-10.8)
[2024-03-06 08:04] LABS: Calcium 7.4 mg/dl (8.6-10.3); Magnesium 1.8 mg/dl (1.7-2.4); Potassium 2.9 mmol/L (3.5-5.1)
[2024-03-06 08:10] LABS: Creatinine Clr Calc Pharmacy 51.5 ml/min
[2024-03-06 08:13] LABS: Basophils # (auto) 0.01 K/uL (0.00-0.20); Basophils % (auto) 1.4 %; Eosinophils # (auto) 0.05 K/uL (0.00-0.50); Eosinophils % (auto) 7.2 %; Lymphocytes # (auto) 0.27 K/uL (1.20-3.40); Lymphocytes % (auto) 39.1 %; Monocytes # (auto) 0.07 K/uL (0.11-0.59); Monocytes % (auto) 10.1 %; Neutrophils # (auto) 0.29 K/uL (1.40-6.50); Neutrophils % (auto) 42.2 %
--- NOTE | 2024-03-06 08:13 | Oncology Consultation ---
Date of Consultation March 06, 2024 Assessment & Plan (1) Pancytopenia: (2) Acute hypoxemic respiratory failure: (3) AML (acute myeloblastic leukemia): (4) CMML (chronic myelomonocytic leukemia): Plan -Blood counts appear to have improved with platelet count of 20,000. Hemoglobin remains at 7. Recommend she receive another unit of PRBC transfusion today. Maintain platelet count above 10,000 and hemoglobin above 7.5. -Continue outpatient follow-up at [facility] Thank you for this consult. Hematology will sign off at this time. Please feel free to call if you have any further questions. History of Present Illness Reason for Consultation: AML Attending Physician: Pranay Fernandez MD History of Present Illness 73-year-old female with likely AML progression from CMML for which she has been receiving treatment with hypomethylating agent plus venetoclax at [facility] under the care of Dr. Cobos of hematology. She presented to the ER at [facility] with acute hypoxemic respiratory failure and pancytopenia. Labs in the ER revealed white cell count of 0.67, hemoglobin 7.1, hematocrit 21.5 and platelet count of 6000. Received 2 units of platelets a pheresis yesterday as well as 1 unit of PRBC.Hematology was consulted for evaluation. Allergies Allergy/AdvReac Type Severity Reaction Status Date / Time pollen extracts Allergy Unknown UNKOWN Unverified 03/05/24 18:46 Home Medications Medication Instructions Recorded Confirmed Type acetaminophen 325 mg tablet 650 mg PO Q6H PRN Fever greater 01/27/24 03/05/24 History (Tylenol) than 100/Pain acyclovir 400 mg tablet 400 mg PO BID 01/27/24 03/05/24 History bisacodyl 10 mg rectal suppository 10 mg NE DIRECTED PRN 01/27/24 03/05/24 History Constipation cholecalciferol (vitamin D3) 25 25 mcg PO QAM 01/27/24 03/05/24 History mcg (1,000 unit) tablet ciprofloxacin HCl 500 mg tablet 500 mg PO BID 01/27/24 03/05/24 History folic acid 1 mg tablet 1 mg PO QAM 01/27/24 03/05/24 History furosemide 40 mg tablet 40 mg PO QAM 01/27/24 03/05/24 History multivitamin 1 tab PO QAM 01/27/24 03/05/24 History ondansetron 4 mg disintegrating 4 mg PO Q6H PRN NAUSEA/VOMITTING 01/27/24 03/05/24 History tablet pantoprazole 40 mg tablet,delayed 40 mg PO DAILYBB 01/27/24 03/05/24 History release posaconazole 100 mg tablet,delayed See Rx Instructions .Route .COMPLEX 01/27/24 03/05/24 History release sodium phosphates 19 gram-7 118 ml NE DAILY PRN CONSTIPATION 01/27/24 03/05/24 History gram/118 mL enema (Fleet Enema) Magic Mix See Rx Instructions .Route .COMPLEX 03/05/24 03/05/24 History calcium carbonate 500 mg PO QDL 03/05/24 03/05/24 History carbamide peroxide 6.5 % ear drops 5 drp otic (ear) BID 03/05/24 03/05/24 History (Debrox) magnesium hydroxide 400 mg/5 mL 2,400 mg PO DAILY PRN Constipation 03/05/24 03/05/24 History oral suspension (Milk of Magnesia) metoprolol succinate 100 mg 100 mg PO DAILY 03/05/24 03/05/24 History capsule sprinkle, ext. release 24 hr polyvinyl alcohol 1.4 % eye drops 1 drp OPB Q8H Blepharitis 03/05/24 03/05/24 History (Artificial Tears (polyvinyl alcohol)) potassium chloride 20 mEq/15 mL 60 meq PO Q12H 03/05/24 03/05/24 History oral liquid Patient History Social History Smoking Status: Never smoker Hx Alcohol Use: No Hx Substance Use: No Preferred Language: Dutch Communication Ability: Effective Carpenter General Required: No Beliefs That Will Affect Care: None Current Living Situation: Rehab Current Living Situation Comment: [facility] currently, home [place]. Other Information That Helps Us Care for You: No Feels Safe at Home: Yes Safety Concerns: Feels Safe At This Time Assistive Devices: Glasses, Walker and Other Assistive Devices Comment: Shower chair Results & Data Vital Signs (Past 12 Hours) Vital Signs Temp Pulse Pulse Resp BP BP Pulse Ox 03/06/24 08:00 37.2 C 109 H 18 119/70 98 03/06/24 06:56 96 H 03/06/24 06:20 37.2 C 124 H 16 110/71 96 03/06/24 05:38 37.5 C 113 H 18 105/67 97 03/06/24 05:32 113 H 03/06/24 05:08 37.5 C 112 H 18 99/62 L 96 03/06/24 04:53 37.6 C H 107 H 16 99/62 L 96 03/06/24 04:35 37.2 C 112 H 16 90/58 L 96 03/06/24 03:40 36.5 C 104 H 16 107/41 L 99 03/06/24 02:00 93 H 26 H 127/52 L 92 03/06/24 01:30 97 03/06/24 01:00 88 24 137/70 98 03/06/24 00:24 76 22 131/79 98 03/05/24 23:15 65 20 112/61 100 03/05/24 22:11 85 03/05/24 21:00 73 25 H 86 L 03/05/24 20:57 102 H 32 H 100 03/05/24 20:42 28 H 99 03/05/24 20:30 27 H 106/46 L 99 03/05/24 20:30 106/46 L 03/05/24 20:30 106/46 L O2 Del Method 03/06/24 08:00 Room Air 03/06/24 06:56 03/06/24 06:20 03/06/24 05:38 03/06/24 05:32 03/06/24 05:08 03/06/24 04:53 03/06/24 04:35 03/06/24 03:40 Room Air 03/06/24 02:00 03/06/24 01:30 Room Air 03/06/24 01:00 Room Air 03/06/24 00:24 Room Air 03/05/24 23:15 Room Air 03/05/24 22:11 03/05/24 21:00 03/05/24 20:57 03/05/24 20:42 03/05/24 20:30 03/05/24 20:30 03/05/24 20:30
[2024-03-06] MEDS ORDERED: SODIUM CHLORIDE 0.9% 250 ML IV PRN (08:29)
[2024-03-06] MEDS: POTASSIUM CHLORIDE CRTAB 20 MEQ TABCR PO SCH (08:48)
[2024-03-06] MEDS: ACYCLOVIR 400 MG TAB PO SCH (08:50)
[2024-03-06] MEDS: CIPROFLOXACIN 500 MG TAB PO SCH (08:50)
[2024-03-06] MEDS: MULTIVITAMIN TAB PO SCH (08:50)
[2024-03-06] MEDS: METOPROLOL SUCC 25MG EXT REL TAB PO SCH (08:50)
[2024-03-06] MEDS: SODIUM CHLORIDE 0.45 % 1,000 ML IV SCH (09:15)
[2024-03-06] MEDS ORDERED: VANCOMYCIN CONSULT ACTIVE PRN (10:19)
[2024-03-06] MEDS ORDERED: CEFEPIME 2 GM VIAL IV SCH (10:30)
[2024-03-06] MEDS: ADVANCED PROBIOTIC 625 MG CAPSULE PO SCH (11:47)
[2024-03-06] MEDS: POTASSIUM CHLORIDE / WTR 10 MEQ/100 ML PLCT IV SCH (11:47)
[2024-03-06] MEDS: CEFEPIME 2000MG 2,000 MG/20 ML SYR IV SCH (11:48)
[2024-03-06] MEDS ORDERED: LOPERAMIDE HCL 2 MG CAP PO PRN (12:13)
--- NOTE | 2024-03-06 13:11 | Pharmacy Report ---
Pharmacy PK ABX Note - Date of Service March 06, 2024 - Assessment and Plan Assessment 73 year old F receiving empiric vancomycin and cefepime for treatment of bilateral lower extremity cellulitis in context of pancytopenia. Pertinent microbiologic data includes: positive MRSA nasal swab. Pertinent PMH includes CMML/AML (receiving hypomethylating agent + venetoclax). WBC/neutrophils (0.67/0.24). Renal function appears to be at/near baseline. Day # 1 of antimicrobial therapy. Plan Vancomycin * Loading dose: 1500 mg IV x 1 * Maintenance dose: 1000 mg IV every 18 hours * Regimen is predicted to achieve target AUC/CHAPIS of 400-600 mg/L.hr * Random level ordered for: 03/08/24 prior to 3rd maintenance dose Pharmacy will continue to follow and will adjust dose/frequency as necessary. Thank you. Pharmacy has transitioned to AUC monitoring for vancomycin. AUC/CHAPIS is the preferred PK/PD target and is associated with decreased risk of nephrotoxicity compared to traditional trough targets.
[2024-03-06] MEDS: VANCOMYCIN HCL 1,500 MG in SODIUM CHLORIDE 0.9% 500 ML IV ONE (13:15)
--- NOTE | 2024-03-06 13:52 | Hospitalist Progress Note ---
Date of Service March 06, 2024 Assessment & Plan (1) Pancytopenia: Plan 73-year-old lady with PMH of PAF currently not on anticoagulation, HTN, GERD, CML undergoing chemotherapy on anti-infective prophylaxis, chronic pancytopenia, rheumatoid arthritis who was recently managed for about a month at [facility] for blast crisis and was also seen by carbonating stone cleaner during this stay for her acute on chronic CHF. 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 She was sent to the ED from there because of hemoglobin 7.5 and platelets of 5 in outpatient lab draw. Patient denied chest pain/shortness of breath/bleeding symptoms/fever/cough. 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 She is being managed for the following: Awaiting records from [facility]. Pancytopenia due to CML and antineoplastic chemotherapy Severe neutropenia HO CML: ongoing chemotherapy on anti-infective prophylaxis Patient was sent due to hemoglobin of 7.5 and platelets of 5000 in outpatient lab draw. Admitting WBC 0.67, Hb 7.1, platelets 6K. Patient did receive 2 units of platelets and 1 unit of PRBC at presentation Hemoglobin of 7.0 and platelets up to 20,000 today. Transfuse 1 more unit of PRBC today. Repeat labs after transfusion is completed. Hematology evaluated, maintain platelet count above 10,000 and hemoglobin above 7.5. Follow-up outpatient oncology. 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 At presentation, patient had multiple unstageable ulcers in the perineum and sacrococcygeal region. No erythema/purulent drainage noted. Discussed with wound care, recommend surgical evaluation For possible debridement. Will hold her home ciprofloxacin, will put patient on cefepime and vancomycin. Sent wound culture and blood culture. Follow. ID consulted, await recommendation. General surgery consulted. WOCN on board. Mild hypernatremia: Admitting sodium of 147, up trended to 149. Continue with gentle IV hydration with half NS at 50 mL an hour. Repeat labs in the afternoon, follow. Consider nephrology consult if worsening. Loose stools Electrolyte abnormalities [hypokalemia and hypomagnesemia]: Likely secondary to above Patient reported multiple loose stools, liquidy in nature since prior to arrival. Admitting stool PCR and C. difficile negative. Monitor and replete electrolytes, utilize psyllium fiber/cholestyramine/as needed Imodium. If ongoing loose stools, consider GI consult. Encourage PO intake, gentle IVF for now. Hypoxia: Patient noted to be hypoxic in the ED, cause not very clear. currently on room air. Watch out volume status given h/o CHF. Other chronic medical conditions: Continue with/resume home meds as when able. PAF, patient NSR, currently not on anticoagulation due to thrombocytopenia. hypertension, BP on the lower side , metoprolol dose decreased. hx GERD Rheumatoid arthritis as per records CHF: chronic, unspecified type. no records available yet for prior echo. DVT prophylaxis. SCDs Re: Thrombocytopenia DNR Patient daughter Ms. Alma Dillard, contact #[phone]. Dtr and updated at bedside 03/06. Total time spent 75 minutes. Text document was generated using [employer] voice recognition software. It may contain grammatical or spelling errors. Kindly contact undersigned for clarification of any documentation item in question. Admission and Anticipated Discharge Date Admission Date: March 05, 2024 Subjective Patient was seen and examined at bedside. Patient was lying in bed, on room air, NAD. Patient's family [daughter and ] at bedside who were also updated on plan of care. 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 Patient denies any cough or chest pain or shortness of breath. Patient in general feels very weak and has poor appetite. Patient's family are already aware of the incurable nature of the cancer and poor prognosis per their discussion with their outpatient oncology. They have never had palliative care evaluation as an outpatient per them, they are interested in having palliative care on board. Consult placed. Pt is having loose stools, stool pcr and cdiff are neg, utilize psylliu m/imodium/cholestyramine. If continues to have loose stool, consider GI consult. Physical Exam Physical Exam: GENERAL: uncomfortable, anxious, no respiratory distress SKIN: Pallor, warm HEENT: Pale palpebral conjunctivae, no ptosis, moist buccal mucosa, nasal cannula in place NECK : Supple, no tenderness CHEST : Decreased breath sounds, no tenderness HEART : rrr, no obvious murmurs ABDOMEN: Some distention, nontender EXTREMITIES : Bilateral LE erythema without tenderness, ble warmth noted. no other conspicuous deformities noted NEUROLOGIC : Coherent, no facial asymmetry, no other gross focality exam: scabbed wounds in labia major x 1 each side, scabbed wound in buttock and perineum, big coccygeal wound w/ yellow crust. No surrounding erythema/tenderness/purulent discharge/swelling noted. all ulcers unstageable. Results & Data Results & Data Vital Signs (Past 12 Hours) Vital Signs Temp Pulse Pulse Resp BP BP Pulse Ox 03/06/24 12:09 37 C 81 119/69 96 03/06/24 11:09 75 15 109/75 95 03/06/24 10:39 78 15 111/53 L 96 03/06/24 10:24 82 15 101/54 L 96 03/06/24 10:01 37.0 C 89 115/75 97 03/06/24 08:00 37.2 C 109 H 18 119/70 98 03/06/24 06:56 96 H 03/06/24 06:20 37.2 C 124 H 16 110/71 96 03/06/24 05:38 37.5 C 113 H 18 105/67 97 03/06/24 05:32 113 H 03/06/24 05:08 37.5 C 112 H 18 99/62 L 96 03/06/24 04:53 37.6 C H 107 H 16 99/62 L 96 03/06/24 04:35 37.2 C 112 H 16 90/58 L 96 03/06/24 03:40 36.5 C 104 H 16 107/41 L 99 03/06/24 02:00 93 H 26 H 127/52 L 92 03/06/24 01:30 97 O2 Del Method 03/06/24 12:09 03/06/24 11:09 03/06/24 10:39 03/06/24 10:24 03/06/24 10:01 03/06/24 08:00 Room Air 03/06/24 06:56 03/06/24 06:20 03/06/24 05:38 03/06/24 05:32 03/06/24 05:08 03/06/24 04:53 03/06/24 04:35 03/06/24 03:40 Room Air 03/06/24 02:00 03/06/24 01:30 Room Air
[2024-03-06 14:15] LABS: Adenovirus F 40/41 PCR Not Detected (NotDetected); Astrovirus PCR Not Detected (NotDetected); Campylobacter PCR Not Detected (NotDetected); Cryptosporidium PCR Not Detected (NotDetected); Cyclospora cayetanensis PCR Not Detected (NotDetected); Entamoeba histolytica PCR Not Detected (NotDetected); Enteroaggregative E.coli(EAEC) Not Detected (NotDetected); Enteropathogenic E.coli (EPEC) Not Detected (NotDetected); Enterotoxigenic E.coli (ETEC) Not Detected (NotDetected); Giardia lamblia PCR Not Detected (NotDetected); Plesiomonas shigelloides PCR Not Detected (NotDetected); Rotavirus A PCR Not Detected (NotDetected); Salmonella PCR Not Detected (NotDetected); Sapovirus PCR Not Detected (NotDetected); Shiga-like Toxin E.coli (STEC) Not Detected (NotDetected); Shigella/Enteroinvasive E.coli Not Detected (NotDetected); Vibrio cholerae PCR Not Detected (NotDetected); Vibrio species PCR Not Detected (NotDetected); Yersinia enterocolitica PCR Not Detected (NotDetected)
[2024-03-06 14:25] LABS: Norovirus GI/GII PCR DETECTED (NotDetected)
--- NOTE | 2024-03-06 14:52 | Surgery Consultation ---
Date of Consultation March 06, 2024 Assessment & Plan (1) Sacral ulcer: Patient is a 73 yo female with PMH of CML, AML, afib, HF, anemia, who presented the [facility] on 03/05/24 at the referral of her oncologist due to concern for needing a transfusion as her outpatient labs were concerning with platelets of 5. She was admitted to the hospital hematology /oncology and they recommended that patient receive PRBC and platelets. General surgery was consulted for a possible sacral ulcer debridement. Currently patients WBC 0.69, PLT 20, and potassium of 2.9. The patient is on neutropenic precautions and assessment of sacral wound will be deferred until tomorrow, chart picture reviewed and patient is noted to have eschar with multiple open areas on sacrum. Given the patients laboratory results she is not stable for surgical intervention at this time and it is recommended that she continue's off loading, and follows with the wound care nurse. Chart reviewed with Dr. Maddox , will follow Supervising Physician Co-Signing Physician Notes Did not see the patient minimize exposure or neutropenic status Discussed case with the nurse and hopefully will be able to discuss the case with family members Would favor comfort measures only History of Present Illness Reason for Consultation: Sacral ulcer Requesting Physician: Dr. Fernandez Attending Physician: Pranay Fernandez MD History of Present Illness Patient is a 73 yo female with PMH of CML, AML, afib, HF, anemia, who presented the [facility] on 03/05/24 at the referral of her oncologist due to concern for needing a transfusion as her outpatient labs were concerning with platelets of 5. She was admitted to the hospital hematology /oncology and they recommended that patient receive PRBC and platelets. General surgery was consulted for a possible sacral ulcer debridement. Information was obtained via chart review. Allergies Allergy/AdvReac Type Severity Reaction Status Date / Time vancomycin Allergy Mild Rash Verified 03/06/24 22:21 pollen extracts Allergy Unknown UNKOWN Unverified 03/05/24 18:46 Home Medications Medication Instructions Recorded Confirmed Type acetaminophen 325 mg tablet 650 mg PO Q6H PRN Fever greater 01/27/24 03/05/24 History (Tylenol) than 100/Pain acyclovir 400 mg tablet 400 mg PO BID 01/27/24 03/05/24 History bisacodyl 10 mg rectal suppository 10 mg VT DIRECTED PRN 01/27/24 03/05/24 History Constipation cholecalciferol (vitamin D3) 25 25 mcg PO QAM 01/27/24 03/05/24 History mcg (1,000 unit) tablet ciprofloxacin HCl 500 mg tablet 500 mg PO BID 01/27/24 03/05/24 History folic acid 1 mg tablet 1 mg PO QAM 01/27/24 03/05/24 History furosemide 40 mg tablet 40 mg PO QAM 01/27/24 03/05/24 History multivitamin 1 tab PO QAM 01/27/24 03/05/24 History ondansetron 4 mg disintegrating 4 mg PO Q6H PRN NAUSEA/VOMITTING 01/27/24 03/05/24 History tablet pantoprazole 40 mg tablet,delayed 40 mg PO DAILYBB 01/27/24 03/05/24 History release posaconazole 100 mg tablet,delayed See Rx Instructions .Route .COMPLEX 01/27/24 03/05/24 History release sodium phosphates 19 gram-7 118 ml VT DAILY PRN CONSTIPATION 01/27/24 03/05/24 History gram/118 mL enema (Fleet Enema) Magic Mix See Rx Instructions .Route .COMPLEX 03/05/24 03/05/24 History calcium carbonate 500 mg PO QDL 03/05/24 03/05/24 History carbamide peroxide 6.5 % ear drops 5 drp otic (ear) BID 03/05/24 03/05/24 History (Debrox) magnesium hydroxide 400 mg/5 mL 2,400 mg PO DAILY PRN Constipation 03/05/24 03/05/24 History oral suspension (Milk of Magnesia) metoprolol succinate 100 mg 100 mg PO DAILY 03/05/24 03/05/24 History capsule sprinkle, ext. release 24 hr polyvinyl alcohol 1.4 % eye drops 1 drp OPB Q8H Blepharitis 03/05/24 03/05/24 History (Artificial Tears (polyvinyl alcohol)) potassium chloride 20 mEq/15 mL 60 meq PO Q12H 03/05/24 03/05/24 History oral liquid Patient History Social History Smoking Status: Never smoker Hx Alcohol Use: No Hx Substance Use: No Preferred Language: Syriac Communication Ability: Effective Dance Costume Designer Required: No Beliefs That Will Affect Care: None Current Living Situation: Rehab Current Living Situation Comment: [facility] currently, home [place]. Other Information That Helps Us Care for You: No Feels Safe at Home: Yes Safety Concerns: Feels Safe At This Time Assistive Devices: Cane and Walker Assistive Devices Comment: Shower chair Results & Data Vital Signs (Past 12 Hours) Vital Signs Temp Pulse Pulse Resp BP BP Pulse Ox 03/06/24 12:09 98.6 F 81 119/69 96 03/06/24 11:09 75 15 109/75 95 03/06/24 10:39 78 15 111/53 L 96 03/06/24 10:24 82 15 101/54 L 96 03/06/24 10:01 98.6 F 89 115/75 97 03/06/24 08:00 99.0 F 109 H 18 119/70 98 03/06/24 06:56 96 H 03/06/24 06:20 99.0 F 124 H 16 110/71 96 03/06/24 05:38 99.5 F 113 H 18 105/67 97 03/06/24 05:32 113 H 03/06/24 05:08 99.5 F 112 H 18 99/62 L 96 03/06/24 04:53 99.7 F H 107 H 16 99/62 L 96 03/06/24 04:35 99.0 F 112 H 16 90/58 L 96 03/06/24 03:40 97.7 F 104 H 16 107/41 L 99 O2 Del Method 03/06/24 12:09 03/06/24 11:09 03/06/24 10:39 03/06/24 10:24 03/06/24 10:01 03/06/24 08:00 Room Air 03/06/24 06:56 03/06/24 06:20 03/06/24 05:38 03/06/24 05:32 03/06/24 05:08 03/06/24 04:53 03/06/24 04:35 03/06/24 03:40 Room Air Results CBC w Diff Results: RBC 2.65 M/uL (4.20-5.40) L 03/08/24 WBC 0.52 K/ul (4.8-10.8) L* 03/08/24 Hgb 7.7 g/dl (12.0-16.0) L 03/08/24 Hct 22.8 % (37.0-47.0) L 03/08/24 MCV 86.0 fL (80.0-100.0) 03/08/24 MCH 29.1 pg (25.0-34.0) 03/08/24 MCHC 33.8 g/dL (32.0-36.0) 03/08/24 RDW Standard Deviation 46.6 fL (36.4-46.3) H 03/08/24 RDW Coefficient of Variation 15.0 % (11.5-14.5) H 03/08/24 Plt Count 24 K/uL (130-400) L* 03/08/24 MPV 10.4 fL (9.4-12.4) 03/08/24 Nucleated Red Blood Cells % (auto) 0.1 % 01/26 Nucleated RBC Absolute Count (auto) 0.07 K/uL (0.00-0.12) 0 01/27/24 Neutrophils (%) (Auto) 42.2 % 03/06/24 Lymphocytes (%) (Auto) 39.1 % 03/06/24 Monocytes # (Auto) 0.07 K/uL (0.11-0.59) L 03/06/24 Eosinophils # (Auto) 0.05 K/uL (0.00-0.50) 03/06/24 Immature Granulocyte % (Auto) 0.0 % 03/06/24 Neutrophils # (Auto) 0.29 K/uL (1.40-6.50) L* 03/06/24 Lymphocytes # (Auto) 0.27 K/uL (1.20-3.40) L 03/06/24 Monocytes # (Auto) 0.07 K/uL (0.11-0.59) L 03/06/24 Eosinophils # (Auto) 0.05 K/uL (0.00-0.50) 03/06/24 Basophils # (Auto) 0.01 K/uL (0.00-0.20) 03/06/24 Immature Granulocyte # (Auto) 0.00 K/uL (0.01-0.20) L 03/06 ANC 0.24 K/uL (1.4-6.5) L* 03/05/24 ALC 0.30 K/uL (1.2-3.4) L 03/05/24 Neutrophils % (Manual) 36 % 03/05/24 Lymphocytes % (Manual) 45 % 03/05/24 Monocytes % (Manual) 24 % 03/03/24 Eosinophils % (Manual) 2 % 03/03/24 Metamyelocytes % (manual) 13 % 03/05/24 Myelocytes % (Manual) 5 % 03/05/24 Promyelocytes % (Manual) 1 % 03/05/24 Blast Cells % (Manual) 7 % 01/27/24 Neutrophils # (Manual) 0.24 K/uL (1.40-6.50) L 03/05/24 Lymphocytes # (Manual) 0.30 K/uL (1.2-3.4) L 03/05/24 Monocytes # (Manual) 0.14 K/uL (0.11-0.59) 03/03/24 Eosinophils # (Manual) 0.01 K/uL (0-0.50) 03/03/24 Metamyelocytes # (Manual) 0.09 K/uL (0-0) H 03/05/24 Myelocytes # (Manual) 0.03 K/uL (0-0) H 03/05/24 Promyelocytes # (Manual) 0.01 K/uL (0-0) H 03/05/24 Blast Cells # (Manual) 8.87 K/uL (0-0) H 01/27/24 Hypersegmented Neutrophils 1+ 11/29/23 Polychromasia 3+ 11/29/23 Echinocytes 1+ 03/05/24 Target Cells 1+ 03/05/24 Tear Drop Cells 1+ 03/05/24 Toxic Granulation 3+ 03/05/24 Toxic Vacuolation Occasional 03/05/24 Dohle Bodies 3+ 03/05/24 Results CMP Results: Na 144 mmol/L (136-145) 03/08/24 K 3.6 mmol/L (3.5-5.1) 03/08/24 Cl 119 mmol/L (98-107) H 03/08/24 CO2 20 mmol/L (21-32) L 03/08/24 Anion Gap 5 (3-11) 03/08/24 BUN 21 mg/dl (6-23) 03/08/24 Creatinine 0.83 mg/dl (0.6-1.2) 03/08/24 Estimated GFR ( Amer) 82.9 ml/min 03/03/24 Estimated GFR (Non-Af Amer) 71.5 ml/min 03/03/24 BUN/Creatinine Ratio 25.3 (10-20) H 03/08/24 Glu 103 mg/dl (70-99(Fasting)) H 03/08/24 Ca 7.2 mg/dl (8.6-10.3) L 03/08/24 Phosphorus Level 2.7 mg/dl (2.5-4.9) 03/08/24 Total Bilirubin 3.6 mg/dl (0.2-1.0) H 03/05/24 AST 33 U/L (13-39) 03/05/24 ALT 47 U/L (7-52) 03/05/24 Alkaline Phosphatase 53 U/L (34-104) 03/05/24 TP 4.6 gm/dl (6.0-8.3) L 03/05/24 Albumin 2.2 gm/dl (3.4-5.0) L 03/05/24 Globulin 2.4 gm/dl (2.5-4.0) L 03/05/24 Albumin/Globulin Ratio 0.9 (0.9-2) 03/05/24 Lactate Dehydrogenase 207 U/L (86-244) 03/03/24 PG Care Time/CCT Total # of Minutes Spent Total Time Spent with Patient: Total time spent is greater than 50% in coordination of care (as documented) at patient's floor/unit and/or counseling patient: Coding Level of Care Code 66622 INT INP/OBS CARE 1/40MIN Diagnoses Sacral ulcer L98.429
[2024-03-06 15:33] LABS: Hematocrit (blood only) 24.4 % (37.0-47.0); Hemoglobin 8.3 g/dl (12.0-16.0); Mean Corpuscular Hemoglobin 28.8 pg (25.0-34.0); Mean Corpuscular Volume 84.7 fL (80.0-100.0); Mean Platelet Volume 11.4 fL (9.4-12.4); Platelet Count 17 K/uL (130-400); RDW Coefficient of Variation 14.5 % (11.5-14.5); RDW Standard Deviation 44.8 fL (36.4-46.3); Red Blood Count 2.88 M/uL (4.20-5.40); White Blood Count 0.76 K/ul (4.8-10.8)
[2024-03-06 15:40] LABS: BUN Creatinine Ratio 23.9 (10-20); Calcium 7.1 mg/dl (8.6-10.3); Creatinine Clr Calc Pharmacy 50.9 ml/min; Potassium 3.5 mmol/L (3.5-5.1)
[2024-03-06] MEDS: PSYLLIUM or GUAR GUM FIBER 4GM PACKET PO SCH (15:45)
[2024-03-06] MEDS: CHOLESTYRAMINE LIGHT 4 GM PKT PO SCH (15:45)
[2024-03-06 16:10] LABS: Platelet Estimate Signific. Decreased (Normal)
[2024-03-06] MEDS: diphenhydrAMINE 50 MG/ML VIAL IV PRN (18:35)
--- NOTE | 2024-03-06 18:47 | Electrocardiogram Report ---
Test Reason : Blood Pressure : */* mmHG Vent. Rate : 101 BPM Atrial Rate : 101 BPM P-R Int : 168 ms QRS Dur : 74 ms QT Int : 366 ms P-R-T Axes : 60 48 45 degrees QTcB Int : 474 ms Sinus tachycardia with Premature supraventricular complexes Low voltage QRS Poor R wave progression, consider anterior NV vs. lead placement vs. LVH Abnormal ECG When compared with ECG of 05-Mar-2024 11:54, Premature ventricular complexes are no longer Present Confirmed by Laron Bojorquez ([id number]) on 03/06/2024 6:47:21 PM Referred By: Vitaliy Cobos Confirmed By: Laron Bojorquez
[2024-03-06] MEDS: VANCOMYCIN HCL 1,000 MG in SODIUM CHLORIDE 0.9% 250 ML IV SCH (21:50)
--- NOTE | 2024-03-06 22:22 | Communication Note ---
Date of Service: March 06, 2024 Patient with recurrent rash after second vancomycin infusion. AP Vancomycin hypersensitivity Alinaitin now Add vancomycin to allergy list Doxycycline in place of vancomycin for now.
--- NOTE | 2024-03-06 22:23 | Palliative Care Consultation ---
Date of Consultation March 06, 2024 Assessment & Plan (1) Cancer related pain: (2) Weakness generalized: (3) Anxiety associated with cancer diagnosis: (4) Depression: (5) Advanced care planning/counseling discussion: A 45-minute [id number] advance care planning discussion was held at the bedside with patient, her daughter, and her son. Clinical trajectory to date was reviewed along with an expiration of her feelings about continuing cancer therapy. She tells me "I do not think I can keep doing this, it is really not doing me any good." Her family agrees to support any decision she makes and her daughter also reiterates that it is hard to watch her suffering and they do not feel that her cancer therapy has really been yielding any benefit. Since the initial diagnosis was made, she has essentially spent all of her time in institutional settings with her hospital or chcf facility. She is not able to return home. She acknowledges at this point she is unsure if she will ever return home because of the amount of help she needs. She is frustrated by her wounds, the diarrhea, the generalized weakness, the poor appetite, and the erythematous progressing rash. She is worried about her cell counts being low and the risk of infection. She is worried about not being on treatment for her rheumatoid arthritis (she had been on methotrexate for years which was stopped when the plan was made to start cancer treatment and she was given 2 doses of Humira but had complications. When asked what her top 2-3 goals would be she reports that she wants to feel less pain, be more comfortable, be home or with her family, and then she also states that she is not ready to . We discussed the options of moving forward on the current plan of care to see how much better she may feel versus transitioning to a focus that might be more on comfort. Advised that she would need to recover functionally and medically with some improvement in the infection status before further active chemotherapy could safely be considered given the overall risk of progression of her infectious diseases. We also discussed that it may be beneficial to return to the longterm for continued trial of rehab and plan to keep a follow-up oncology appointment in a few weeks for them to reevaluate her functional status and determine if taking further chemo would be worth the risk versus options for either dose reduction or drug rotation. I advised her at this junction that either of those options would be fully reasonable for her and her medical teams along with her family will support what ever her choices. If she feels that she wants to try and get better, then the best route at this time would be to continue on the current course of treatment, and pursue a plan of care to return to the longterm for continued rehab therapy. If she does not improve with the rehab, then that may is an indication that overall disease progression is not going to be resolved and the likelihood of resuming any chemo or cancer directed therapy is low. That would be an indicator in my opinion that a transition to a comfort and quality of life focus would be far more appropriate with the addition of hospice. They do lengthy discussion about the hospice benefit at the request of her family. We reviewed that this could be initiated at the longterm if needed and added to her care depending on what the insurance coverage parameters were and then if she was interested in this option, care management could help further discern coverage parameters and associated cost/[id number] expenses. She is not able to return home and family is not able to care for her at either of their homes with the addition of home hospice. For now, have agreed to see how she does through the weekend and they want more time to discuss as a family. She is on the fence about pursuing further cancer directed therapy and repeatedly states "I am just feeling miserable, it is really not doing anything for me." Her family is in agreement and daughter acknowledges that she feels at this point patient is suffering more from her cancer directed therapy than she is benefiting. They also acknowledge that they were told from the beginning that this is not a curable cancer and that in general, it is a very aggressive cancer. The overall goal for cancer directed therapy would be to complete her cycles of chemo with the plan to move forward with a transplant however she is not a candidate for stem cell transplantation due to her age and chronic complex comorbidities. Therefore, the overall anticipated benefit both long and short term of chemotherapy may not be within the ranges of what she wants for herself. She is going to take some time to think about this with her family through the weekend. (6) Palliative care by specialist: Introduced Palliative Medicine and explained our role in patient's care. Patient and/or family were receptive to palliative services for goals of care discussions. Reviewed we are different from hospice, a home health nurse visiting service. Plan As above. Thank you for allowing us to participate in the ongoing care of this patient. Please page with any additional concerns. Winston Dobbins [facility] Director, Palliative Medicine History of Present Illness Reason for Consultation: CML, frail, GOC Attending Physician: Pranay Fernandez MD History of Present Illness Admitted 03/05/24 from [facility] Per ED Note: History obtained from patient, family, and records. Medical history significant for PAF currently not on anticoagulation, hypertension, GERD, CML ongoing chemotherapy, RA s/p MTX x 5 years but stopped for chemo and had 2 doses Humira; on anti-infective prophylaxis, chronic pancytopenia. Recent [facility] ER visit last January 2024 for acute CHF and blast crisis. Patient transferred to [facility] in [place] for further management. Patient subsequently confined for 1 month. Patient seen by arch cushion press operator during stay as per family. Patient told cancer issues were more serious than heart problem as per family. Patient discharged to [facility] facility for rehab 2 weeks ago. Patient directed to ER today because of hemoglobin of 7.5, platelets of 5 on outpatient blood draw yesterday. Patient denies unusual chest pain, SOB, or bleeding symptoms. Loose stools as per patient. Has actually lost more than 20 pounds since confinement at [facility] as per patient. Lowest O2 sats of 80s documented at the ER. 1 unit PRBC transfused at the ER. Admitted with acute hypox resp failure, sepsis, CHF exac, weakness, multiple areas of skin breakdown and ulcers, also ulcerating lesion at site of bone marrow bx done by [facility] Seen by surgery and not a stable candidate for sacral ulcer debridement Bilateral lower extremity cellulitis noted, severely neutropenic, multiple pressure ulcers of the right and left buttock, coccygeal area, sacral region, and several unstageable ulcers of the perineum and sacrococcygeal region. There is a diffuse erythematous skin eruption,? Chemo related drug reaction - she is being treated with azacitidine and venetoclax During cycle 1 of azacitidine, she had complications of multiple hospitalizations, fever, gingival expansion. She was due to receive her second cycle of azacitidine who presented to [facility] on 826 with symptoms of dyspnea and significantly increasing bilateral lower extremity edema. Cell counts at that time showed a white blood cell count of 126.7, 46% neutrophils, 11% lymphs, 14% monos, 7% blasts. Hemoglobin was 6.3 and platelets were 54K. Out of concern for blast crisis she was transferred to a higher level of care. She was then started on Hydrea for cytoreduction and a bone marrow biopsy done 828 revealed hypercellular marrow with 95% cellularity, dysplasia, left shifted myeloid hyperplasia, monocytosis and borderline high blasts. Marrow reticulin fibrosis was mildly to moderately increased. Flow cytometry showed increased monocytic cells, no increased blasts. Sabino showed mutations in NPM1 with VA F30 3%, FLT3I TD with VA F20 3.4%, DN M T3a of 48.6%, and TET's with VA F40 9.1%. 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 On 02/10/2024, venetoclax was started for 14 days. Her admissions were complicated by atrial fibrillation with RVR, requiring amiodarone with transition to p.o. Lopressor. Eliquis has been intermittently held. She has significant issues with lower extremity edema minimally improving with daily Lasix. Elevated INR's. Chronically malnourished. Follows with Dr. Reyes/onc. Her family states that she has a scheduled appointment for 03/10/2024 for cycle 3 of azacitidine and cycle 2 of venetoclax She is seen at bedside together with her daughter and her son. She reports that overall she is feeling very weak and questioning if she should continue her cancer therapy. She does not feel very well and states she has been at [facility] since discharge from [place]. She is not happy with being in a longterm but also notes that she needs so much assistance that she does not feel safe going home. she is struggling with ongoing loose stools, rectal catheter planned, cultures ordered. Admission PCR/C diff neg appetite poor not very active, PS2-borderline 3 Allergies Allergy/AdvReac Type Severity Reaction Status Date / Time vancomycin Allergy Mild Rash Verified 03/06/24 22:21 pollen extracts Allergy Unknown UNKOWN Unverified 03/05/24 18:46 Home Medications Medication Instructions Recorded Confirmed Type acetaminophen 325 mg tablet 650 mg PO Q6H PRN Fever greater 01/27/24 03/05/24 History (Tylenol) than 100/Pain acyclovir 400 mg tablet 400 mg PO BID 01/27/24 03/05/24 History bisacodyl 10 mg rectal suppository 10 mg ME DIRECTED PRN 01/27/24 03/05/24 History Constipation cholecalciferol (vitamin D3) 25 25 mcg PO QAM 01/27/24 03/05/24 History mcg (1,000 unit) tablet ciprofloxacin HCl 500 mg tablet 500 mg PO BID 01/27/24 03/05/24 History folic acid 1 mg tablet 1 mg PO QAM 01/27/24 03/05/24 History furosemide 40 mg tablet 40 mg PO QAM 01/27/24 03/05/24 History multivitamin 1 tab PO QAM 01/27/24 03/05/24 History ondansetron 4 mg disintegrating 4 mg PO Q6H PRN NAUSEA/VOMITTING 01/27/24 03/05/24 History tablet pantoprazole 40 mg tablet,delayed 40 mg PO DAILYBB 01/27/24 03/05/24 History release posaconazole 100 mg tablet,delayed See Rx Instructions .Route .COMPLEX 01/27/24 03/05/24 History release sodium phosphates 19 gram-7 118 ml ME DAILY PRN CONSTIPATION 01/27/24 03/05/24 History gram/118 mL enema (Fleet Enema) Magic Mix See Rx Instructions .Route .COMPLEX 03/05/24 03/05/24 History calcium carbonate 500 mg PO QDL 03/05/24 03/05/24 History carbamide peroxide 6.5 % ear drops 5 drp otic (ear) BID 03/05/24 03/05/24 History (Debrox) magnesium hydroxide 400 mg/5 mL 2,400 mg PO DAILY PRN Constipation 03/05/24 03/05/24 History oral suspension (Milk of Magnesia) metoprolol succinate 100 mg 100 mg PO DAILY 03/05/24 03/05/24 History capsule sprinkle, ext. release 24 hr polyvinyl alcohol 1.4 % eye drops 1 drp OPB Q8H Blepharitis 03/05/24 03/05/24 History (Artificial Tears (polyvinyl alcohol)) potassium chloride 20 mEq/15 mL 60 meq PO Q12H 03/05/24 03/05/24 History oral liquid Patient History Social History Smoking Status: Never smoker Hx Alcohol Use: No Hx Substance Use: No Preferred Language: Kuwaiti Communication Ability: Effective Guest Services Agent Required: No Beliefs That Will Affect Care: None Current Living Situation: Rehab Current Living Situation Comment: [facility] currently, home [place]. Other Information That Helps Us Care for You: No Feels Safe at Home: Yes Safety Concerns: Feels Safe At This Time Assistive Devices: Cane and Walker Assistive Devices Comment: Shower chair Review of Systems Review of Systems: All systems reviewed & are unremarkable except as noted in Subjective Physical Exam Physical Exam: Elderly female, 69 reclined in bed. Bitemporal wasting PERRLA/EOMI's Neck supple without stridor, anterior adenopathy noted Dentition poor, multiple missing/fractured teeth, some gingival disease, + caries Respiratory effort within acceptable limits at rest, no overt wheezing, symmetric chest movement Irregularly irregular rhythm, no gross JVD Abdomen softly distended, + bowel sounds hyperactive Bilateral lower extremities with diffuse erythematous confluent rash, petechial lesions noted, sacral and gluteal wounds, skin is friable Awake alert and oriented x 3 Tearful Skin pale, scattered ecchymoses, mildly diaphoretic Results & Data Vital Signs (Past 12 Hours) Vital Signs Temp Pulse Pulse Resp BP BP Pulse Ox 03/06/24 19:14 37.3 C 103 H 18 110/70 97 03/06/24 15:42 36.8 C 103 H 18 136/64 98 03/06/24 12:42 36.9 C 81 16 110/78 94 03/06/24 12:09 37 C 81 119/69 96 03/06/24 11:09 75 15 109/75 95 03/06/24 10:39 78 15 111/53 L 96 03/06/24 10:24 82 15 101/54 L 96 O2 Del Method 03/06/24 19:14 Room Air 03/06/24 15:42 Room Air 03/06/24 12:42 03/06/24 12:09 03/06/24 11:09 03/06/24 10:39 03/06/24 10:24 Laboratory Results 03/06/24 03/06/24 03/06/24 Range/Units Unknown 14:35 07:19 WBC 0.76 L* 0.69 L* (4.8-10.8) K/ul RBC 2.88 L 2.47 L (4.20-5.40) M/uL Hgb 8.3 L 7.0 L (12.0-16.0) g/dl Hct 24.4 L 21.1 L (37.0-47.0) % MCV 84.7 85.4 (80.0-100.0) fL MCH 28.8 28.3 (25.0-34.0) pg MCHC 34.0 33.2 (32.0-36.0) g/dL RDW Std Deviation 44.8 46.4 H (36.4-46.3) fL RDW Coeff of Juan Pablo 14.5 15.1 H (11.5-14.5) % Plt Count 17 L* 20 L* D (130-400) K/uL MPV 11.4 10.9 (9.4-12.4) fL Immature Gran % (Auto) 0.0 % Neut % (Auto) 42.2 % Lymph % (Auto) 39.1 % [place] % (Auto) 10.1 % Eos % (Auto) 7.2 % Baso % (Auto) 1.4 % Neut # (Auto) 0.29 L* (1.40-6.50) K/uL Lymph # (Auto) 0.27 L (1.20-3.40) K/uL [place]on # (Auto) 0.07 L (0.11-0.59) K/uL Eos # (Auto) 0.05 (0.00-0.50) K/uL Baso # (Auto) 0.01 (0.00-0.20) K/uL Immature Gran # (Auto) 0.00 L (0.01-0.20) K/uL Neutrophils % (Manual) % Lymphocytes % (Manual) % Metamyelocytes % (Man) % Myelocytes % (Man) % Promyelocytes % (Man) % Neutrophils # (Manual) (1.40-6.50) K/uL Total Absolute Neuts (1.4-6.5) K/uL Lymphocytes # (Manual) (1.2-3.4) K/uL Total Abs Lymphocytes (1.2-3.4) K/uL Metamyelocytes # (Man) (0-0) K/uL Myelocytes # (Manual) (0-0) K/uL Promyelocytes # (Man) (0-0) K/uL Toxic Granulation Toxic Vacuolation Dohle Bodies Platelet Estimate Signific. Decreased L (Normal) Target Cells Tear Drop Cells Echinocytes PT (9.0-12.0) Seconds INR (0.9-1.1) VBG pH (7.36-7.41) VBG pCO2 (38-50) mmHg VBG pO2 mmHg VBG HCO3 mmol/L VBG O2 Saturation % VBG Base Excess mEq/L Sodium 148 H 149 H (136-145) mmol/L Potassium 3.5 D 2.9 L (3.5-5.1) mmol/L Chloride 119 H 118 H (98-107) mmol/L Carbon Dioxide 21 22 (21-32) mmol/L Anion Gap 8 9 (3-11) BUN 22 20 (6-23) mg/dl Creatinine 0.92 0.91 (0.6-1.2) mg/dl Est Cr Clr Drug Dosing 50.9 51.5 ml/min eGFR 65.34 66.20 BUN/Creatinine Ratio 23.9 H 22.0 H (10-20) Glucose 108 H 111 H (70-99(Fasting)) mg/dl Calcium 7.1 L 7.4 L (8.6-10.3) mg/dl Magnesium 1.8 (1.7-2.4) mg/dl Total Bilirubin (0.2-1.0) mg/dl AST (13-39) U/L ALT (7-52) U/L Alkaline Phosphatase (34-104) U/L Total Protein (6.0-8.3) gm/dl Albumin (3.4-5.0) gm/dl Globulin (2.5-4.0) gm/dl Albumin/Globulin Ratio (0.9-2) Lipase (11-82) U/L TSH (0.300-4.500) uIu/ml Free T4 (0.61-1.60) ng/dl Nasal Screen MRSA (PCR) (Negative) Stl C. cayetanensis PCR Not Detected (NotDetected) Stool Rotavirus A PCR Not Detected (NotDetected) Stl Adenov F 40/41 PCR Not Detected (NotDetected) Stool Astrovirus (PCR) Not Detected (NotDetected) Stool Campylobacter PCR Not Detected (NotDetected) Stl C. diff Tox B Gene Negative Cdiff Gene (Neg) Stool Cryptosporidium PCR Not Detected (NotDetected) Stl E.coli Shiga Tox PCR Not Detected (NotDetected) Stl Enterotoxigenic E PCR Not Detected (NotDetected) Stool EPEC (PCR) Not Detected (NotDetected) Stool EAEC (PCR) Not Detected (NotDetected) Stl E. histolytica PCR Not Detected (NotDetected) Stool Giardia Lamblia PCR Not Detected (NotDetected) Stool Salmonella PCR Not Detected (NotDetected) Stool Sapovirus (PCR) Not Detected (NotDetected) Stl P. shigelloides PCR Not Detected (NotDetected) Stl Shigella/EIEC PCR Not Detected (NotDetected) St Y.enterocolitica PCR Not Detected (NotDetected) Stool Vibrio (PCR) Not Detected (NotDetected) Stl Vibrio cholerae PCR Not Detected (NotDetected) Stl Norovirus GI/GII PCR DETECTED A* (NotDetected) Blood Type Antibody Screen Crossmatch 03/06/24 03/06/24 03/06/24 Range/Units 06:27 01:26 00:25 WBC (4.8-10.8) K/ul RBC (4.20-5.40) M/uL Hgb (12.0-16.0) g/dl Hct (37.0-47.0) % MCV (80.0-100.0) fL MCH (25.0-34.0) pg MCHC (32.0-36.0) g/dL RDW Std Deviation (36.4-46.3) fL RDW Coeff of Juan Pablo (11.5-14.5) % Plt Count (130-400) K/uL MPV (9.4-12.4) fL Immature Gran % (Auto) % Neut % (Auto) % Lymph % (Auto) % Macon % (Auto) % Eos % (Auto) % Baso % (Auto) % Neut # (Auto) (1.40-6.50) K/uL Lymph # (Auto) (1.20-3.40) K/uL Macon # (Auto) (0.11-0.59) K/uL Eos # (Auto) (0.00-0.50) K/uL Baso # (Auto) (0.00-0.20) K/uL Immature Gran # (Auto) (0.01-0.20) K/uL Neutrophils % (Manual) % Lymphocytes % (Manual) % Metamyelocytes % (Man) % Myelocytes % (Man) % Promyelocytes % (Man) % Neutrophils # (Manual) (1.40-6.50) K/uL Total Absolute Neuts (1.4-6.5) K/uL Lymphocytes # (Manual) (1.2-3.4) K/uL Total Abs Lymphocytes (1.2-3.4) K/uL Metamyelocytes # (Man) (0-0) K/uL Myelocytes # (Manual) (0-0) K/uL Promyelocytes # (Man) (0-0) K/uL Toxic Granulation Toxic Vacuolation Dohle Bodies Platelet Estimate (Normal) Target Cells Tear Drop Cells Echinocytes PT (9.0-12.0) Seconds INR (0.9-1.1) VBG pH 7.42 H (7.36-7.41) VBG pCO2 35 L (38-50) mmHg VBG pO2 35 mmHg VBG HCO3 23 mmol/L VBG O2 Saturation 65.8 % VBG Base Excess -1.3 mEq/L Sodium (136-145) mmol/L Potassium (3.5-5.1) mmol/L Chloride (98-107) mmol/L Carbon Dioxide (21-32) mmol/L Anion Gap (3-11) BUN (6-23) mg/dl Creatinine (0.6-1.2) mg/dl Est Cr Clr Drug Dosing ml/min eGFR BUN/Creatinine Ratio (10-20) Glucose (70-99(Fasting)) mg/dl Calcium (8.6-10.3) mg/dl Magnesium (1.7-2.4) mg/dl Total Bilirubin (0.2-1.0) mg/dl AST (13-39) U/L ALT (7-52) U/L Alkaline Phosphatase (34-104) U/L Total Protein (6.0-8.3) gm/dl Albumin (3.4-5.0) gm/dl Globulin (2.5-4.0) gm/dl Albumin/Globulin Ratio (0.9-2) Lipase (11-82) U/L TSH (0.300-4.500) uIu/ml Free T4 (0.61-1.60) ng/dl Nasal Screen MRSA (PCR) Positive A (Negative) Stl C. cayetanensis PCR Not Detected (NotDetected) Stool Rotavirus A PCR Not Detected (NotDetected) Stl Adenov F 40/41 PCR Not Detected (NotDetected) Stool Astrovirus (PCR) Not Detected (NotDetected) Stool Campylobacter PCR Not Detected (NotDetected) Stl C. diff Tox B Gene Negative Cdiff Gene (Neg) Stool Cryptosporidium PCR Not Detected (NotDetected) Stl E.coli Shiga Tox PCR Not Detected (NotDetected) Stl Enterotoxigenic E PCR Not Detected (NotDetected) Stool EPEC (PCR) Not Detected (NotDetected) Stool EAEC (PCR) Not Detected (NotDetected) Stl E. histolytica PCR Not Detected (NotDetected) Stool Giardia Lamblia PCR Not Detected (NotDetected) Stool Salmonella PCR Not Detected (NotDetected) Stool Sapovirus (PCR) Not Detected (NotDetected) Stl P. shigelloides PCR Not Detected (NotDetected) Stl Shigella/EIEC PCR Not Detected (NotDetected) St Y.enterocolitica PCR Not Detected (NotDetected) Stool Vibrio (PCR) Not Detected (NotDetected) Stl Vibrio cholerae PCR Not Detected (NotDetected) Stl Norovirus GI/GII PCR Not Detected (NotDetected) Blood Type Antibody Screen Crossmatch 03/05/24 Range/Units 13:04 WBC 0.67 L* (4.8-10.8) K/ul RBC 2.50 L (4.20-5.40) M/uL Hgb 7.1 L (12.0-16.0) g/dl Hct 21.5 L (37.0-47.0) % MCV 86.0 (80.0-100.0) fL MCH 28.4 (25.0-34.0) pg MCHC 33.0 (32.0-36.0) g/dL RDW Std Deviation 48.2 H (36.4-46.3) fL RDW Coeff of Juan Pablo 15.3 H (11.5-14.5) % Plt Count 6 L* (130-400) K/uL MPV (9.4-12.4) fL Immature Gran % (Auto) % Neut % (Auto) % Lymph % (Auto) % [place] % (Auto) % Eos % (Auto) % Baso % (Auto) % Neut # (Auto) (1.40-6.50) K/uL Lymph # (Auto) (1.20-3.40) K/uL [place]on # (Auto) (0.11-0.59) K/uL Eos # (Auto) (0.00-0.50) K/uL Baso # (Auto) (0.00-0.20) K/uL Immature Gran # (Auto) (0.01-0.20) K/uL Neutrophils % (Manual) 36 % Lymphocytes % (Manual) 45 % Metamyelocytes % (Man) 13 % Myelocytes % (Man) 5 % Promyelocytes % (Man) 1 % Neutrophils # (Manual) 0.24 L (1.40-6.50) K/uL Total Absolute Neuts 0.24 L* (1.4-6.5) K/uL Lymphocytes # (Manual) 0.30 L (1.2-3.4) K/uL Total Abs Lymphocytes 0.30 L (1.2-3.4) K/uL Metamyelocytes # (Man) 0.09 H (0-0) K/uL Myelocytes # (Manual) 0.03 H (0-0) K/uL Promyelocytes # (Man) 0.01 H (0-0) K/uL Toxic Granulation 3+ Toxic Vacuolation Occasional Dohle Bodies 3+ Platelet Estimate (Normal) Target Cells 1+ Tear Drop Cells 1+ Echinocytes 1+ PT 13.9 H (9.0-12.0) Seconds INR 1.3 H (0.9-1.1) VBG pH (7.36-7.41) VBG pCO2 (38-50) mmHg VBG pO2 mmHg VBG HCO3 mmol/L VBG O2 Saturation % VBG Base Excess mEq/L Sodium 148 H (136-145) mmol/L Potassium 3.2 L (3.5-5.1) mmol/L Chloride 117 H (98-107) mmol/L Carbon Dioxide 24 (21-32) mmol/L Anion Gap 7 (3-11) BUN 22 (6-23) mg/dl Creatinine 0.93 (0.6-1.2) mg/dl Est Cr Clr Drug Dosing 49.5 ml/min eGFR 64.50 BUN/Creatinine Ratio 23.7 H (10-20) Glucose 107 H (70-99(Fasting)) mg/dl Calcium 7.4 L (8.6-10.3) mg/dl Magnesium 1.5 L (1.7-2.4) mg/dl Total Bilirubin 3.6 H (0.2-1.0) mg/dl AST 33 (13-39) U/L ALT 47 (7-52) U/L Alkaline Phosphatase 53 (34-104) U/L Total Protein 4.6 L (6.0-8.3) gm/dl Albumin 2.2 L (3.4-5.0) gm/dl Globulin 2.4 L (2.5-4.0) gm/dl Albumin/Globulin Ratio 0.9 (0.9-2) Lipase 5 L (11-82) U/L TSH 4.971 H (0.300-4.500) uIu/ml Free T4 1.55 (0.61-1.60) ng/dl Nasal Screen MRSA (PCR) (Negative) Stl C. cayetanensis PCR (NotDetected) Stool Rotavirus A PCR (NotDetected) Stl Adenov F 40/41 PCR (NotDetected) Stool Astrovirus (PCR) (NotDetected) Stool Campylobacter PCR (NotDetected) Stl C. diff Tox B Gene (Neg) Stool Cryptosporidium PCR (NotDetected) Stl E.coli Shiga Tox PCR (NotDetected) Stl Enterotoxigenic E PCR (NotDetected) Stool EPEC (PCR) (NotDetected) Stool EAEC (PCR) (NotDetected) Stl E. histolytica PCR (NotDetected) Stool Giardia Lamblia PCR (NotDetected) Stool Salmonella PCR (NotDetected) Stool Sapovirus (PCR) (NotDetected) Stl P. shigelloides PCR (NotDetected) Stl Shigella/EIEC PCR (NotDetected) St Y.enterocolitica PCR (NotDetected) Stool Vibrio (PCR) (NotDetected) Stl Vibrio cholerae PCR (NotDetected) Stl Norovirus GI/GII PCR (NotDetected) Blood Type A Positive Antibody Screen NEGATIVE Crossmatch See Detail Diagnostic Findings Chest X-Ray 03/05/24 23:16 XR chest 1V portable HISTORY: 73 years-old Female low o2 acute hypoxia COMPARISON: 01/27/2024 TECHNIQUE: AP view of the chest FINDINGS: Cardiac silhouette is enlarged. A battery pack projects over the left chest wall. Pulmonary vascular congestion with interstitial coarsening. Trace right and small left pleural effusions with mild bibasilar densities. Bones appear grossly intact. IMPRESSION: 1. Cardiomegaly with suggestion of interstitial pulmonary edema. 2. Trace right and small left pleural effusions with mild bibasilar atelectasis. ACT 112: Negative or not required by law. The above report was generated using voice recognition software. It may contain grammatical, syntax or spelling errors. Electronically signed by: Og Rogers M.D. 03/06/2024 6:54 AM PG Care Time/CCT Total # of Minutes Spent Total Time Spent with Patient: Total time spent is greater than 50% in coordination of care (as documented) at patient's floor/unit and/or counseling patient: I spent 110 minutes overall addressing this case: 25 min in medical data review/discussion with referring provider(s) and/or preparation for the visit incl extensive OSH records 20 min in direct interaction with the patient/exam 45 min in Advance Care Planning/Goals of Care discussions as detailed above in note (must be >16min) 15 min in subsequent review and synthesis of assessment and plan 5 min communicating with other providers regarding the patient's case: primary team Advanced Care Planning [id number] Advanced Care Planning 30 [place] [address] Advanced Care Planning Additional 30 [place] [address] IN/OBS CONSULT LVL 4,60M (25 - SIGNIFICANT, SEPARATELY IDENTIFIABLE ) Patient Type New Medical Decision Making High Complexity Diagnoses Cancer related pain G89.3 Weakness generalized R53.1 Anxiety associated with cancer diagnosis F41.1; C80.1 Depression F32.A Advanced care planning/counseling discussion Z71.89 Palliative care by specialist Z51.5 Additional Codes Advanced Care Planning - 69675 Advanced Care Planning 30 Min: 93155 Advanced Care Planning 30 Min ([id number]) Advanced Care Planning - 18257 Advanced Care Planning Additional 30 Min: 70169 Advanced Care Planning Additional 30 Min ([id number])
[2024-03-06] MEDS: ACETAMINOPHEN 325 MG TAB PO PRN (23:22)
[2024-03-06] MEDS: LOPERAMIDE HCL 2 MG CAP PO PRN (23:23)
[2024-03-06] MEDS: LORATADINE 10 MG TAB PO ONE (23:25)
[2024-03-06] MEDS: DOXYCYCLINE HYCLATE 100 MG in DEXTROSE 5% MINI-B 100 ML IV ONE (23:26)
[2024-03-07] MEDS: MAGNESIUM SULFATE / D5W 1 GM/100 ML BAG IV ONE (03:28)
[2024-03-07] MEDS: LOPERAMIDE HCL 2 MG CAP PO PRN (03:28)
[2024-03-07] MEDS: POTASSIUM CHLORIDE PWD 20 MEQ PACK PO STA (03:50)
[2024-03-07 06:35] LABS: BUN Creatinine Ratio 25.3 (10-20); Creatinine Clr Calc Pharmacy 53.9 ml/min; Magnesium 1.9 mg/dl (1.7-2.4); Phosphorus 2.9 mg/dl (2.5-4.9); Potassium 2.8 mmol/L (3.5-5.1)
[2024-03-07 06:41] LABS: Hematocrit (blood only) 23.2 % (37.0-47.0); Mean Corpuscular Hemoglobin 29.2 pg (25.0-34.0); Mean Corpuscular Hgb Conc 34.5 g/dL (32.0-36.0); Mean Corpuscular Volume 84.7 fL (80.0-100.0); Platelet Count 9 K/uL (130-400); RDW Coefficient of Variation 14.7 % (11.5-14.5); RDW Standard Deviation 45.2 fL (36.4-46.3); Red Blood Count 2.74 M/uL (4.20-5.40)
[2024-03-07] MEDS ORDERED: SODIUM CHLORIDE 0.9% 250 ML IV PRN (07:59)
[2024-03-07] MEDS: POTASSIUM CHLORIDE / WTR 10 MEQ/100 ML PLCT IV SCH (08:24)
[2024-03-07] MEDS: DOXYCYCLINE HYCLATE 100 MG CAP PO SCH (08:25)
[2024-03-07] MEDS: POTASSIUM CHLORIDE CRTAB 20 MEQ TABCR PO SCH (08:38)
[2024-03-07] MEDS: SODIUM CHLORIDE 0.45 % 1,000 ML IV SCH (10:29)
--- NOTE | 2024-03-07 10:34 | Surgery Progress Note ---
Date of Service March 07, 2024 Assessment & Plan (1) Sacral ulcer: Plan: Patient receiving platelets this AM. Per nursing, no new concerns overnight. Platelets to be transfused this morning. Palliative consult was completed yesterday. Per consult, patient and family are going to take the weekend to decide ultimate goals of care. No plans on surgical intervention. Patient's son does plan on visiting this afternoon, after [employer] game. Will attempt to talk with him today or tomorrow. Continue to recommend off loading and continue local wound care per wound care orders. Assessment and Plan reviewed with Dr. Maddox. Admission and Anticipated Discharge Date Admission Date: March 05, 2024 Supervising Physician Co-Signing Physician Notes As per Diana Barrios physician coding assistant No change in overall neutropenic status Hopefully we will be able to talk to family member today we were unable to do so yesterday Subjective Patient resting in bed, no family at bedside. Son plans to visit after [employer] game today. Per nursing, no new concerns overnight. Platelets to be transfused this morning. Palliative consult was completed yesterday. Per consult, patient and family are going to take the weekend to decide ultimate goals of care. Physical Exam Physical Exam: Bilateral lower extremities with diffuse erythematous confluent rash, petechial lesions noted, sacral and gluteal wounds, skin is friable Results & Data Vital Signs (Past 12 Hours) Vital Signs Temp Pulse Pulse Resp BP BP Pulse Ox 03/07/24 10:06 36.6 C 98 H 18 112/61 99 03/07/24 09:36 36.6 C 03/07/24 09:35 36.6 C 105 H 18 108/67 100 03/07/24 09:21 36.6 C 106 H 18 112/63 99 03/07/24 09:10 03/07/24 09:03 36.4 C L 111 H 18 108/69 99 03/07/24 07:43 36.6 C 100 H 19 112/56 L 99 03/07/24 07:33 101 H 03/07/24 02:50 36.4 C L 97 H 18 103/61 98 03/06/24 23:18 37.0 C 107 H 18 122/63 97 03/06/24 23:06 65 O2 Del Method 03/07/24 10:06 03/07/24 09:36 03/07/24 09:35 03/07/24 09:21 10/05/24 09:10 Room Air 03/07/24 09:03 03/07/24 07:43 Room Air 03/07/24 07:33 03/07/24 02:50 Room Air 03/06/24 23:18 Room Air 03/06/24 23:06 PG Care Time/CCT Total # of Minutes Spent Total Time Spent with Patient: Total time spent is greater than 50% in coordination of care (as documented) at patient's floor/unit and/or counseling patient: Coding Level of Care Code 26406 SUB INP/OBS CARE 06/27MIN Diagnoses Sacral ulcer L98.429
--- NOTE | 2024-03-07 16:29 | Hospitalist Progress Note ---
Date of Service March 07, 2024 Assessment & Plan (1) Pancytopenia: Plan 73-year-old lady with PMH of PAF currently not on anticoagulation, HTN, GERD, CML undergoing chemotherapy on anti-infective prophylaxis, chronic pancytopenia, rheumatoid arthritis who was recently managed for about a month at [facility] [place] for blast crisis and was also seen by tool worker during this stay for her acute on chronic CHF. 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 She was sent to the ED from there because of hemoglobin 7.5 and platelets of 5 in outpatient lab draw. Patient denied chest pain/shortness of breath/bleeding symptoms/fever/cough. Patient does report multiple loose stools, was noted to be hypoxic at presentation [O2 sats of 80% at ED], reported BLE redness/ warmth ongoing for 3 to 4 days INTERNET DESIGNER. She is being managed for the following: Awaiting records from [facility]. Pancytopenia due to CML and antineoplastic chemotherapy Severe neutropenia HO CML: ongoing chemotherapy on anti-infective prophylaxis Patient was sent due to hemoglobin of 7.5 and platelets of 5000 in outpatient lab draw. Admitting WBC 0.67, Hb 7.1, platelets 6K. So far: 2 units of platelets and 2 unit of PRBC Hemoglobin of 8.0 and platelets 9K today Transfuse 2 more unit of platelets today. Repeat labs after transfusion is completed. Hematology evaluated 03/06, maintain platelet count above 10,000 and hemoglobin above 7.5. Follow-up outpatient oncology. 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 At presentation, patient had multiple unstageable ulcers in the perineum and sacrococcygeal region. No erythema/purulent drainage noted. Wound care evaled, recommended surgical evaluation Held her home ciprofloxacin, c/w cefepime 03/06 and vancomycin 03/06 ---Vanco switched to doxy 03/06 due to hypersensitivity reaction to vanc. Sent wound culture and blood culture. Follow. ID consulted, await recommendation. General surgery consulted. WOCN on board. Mild hypernatremia: Admitting sodium of 147, up trended to 149. Na 148 currently Continue with gentle IV hydration with half NS at 50 mL an hour. Repeat labs in the afternoon, follow. Consider nephrology consult if worsening. Loose stools/ Norovirus gastroenteritis: c/w gentle ivf, encourage PO intake. c/w supportive care. Electrolyte abnormalities [hypokalemia and hypomagnesemia]: Likely secondary to above Patient reported multiple loose stools, liquidy in nature since prior to arrival. Admitting stool PCR and C. difficile negative. Repeat Stool PCR +ve for norovirus. Monitor and replete electrolytes, utilize psyllium fiber/cholestyramine/as needed Imodium. Encourage PO intake, gentle IVF for now. Hypoxia: Patient noted to be hypoxic in the ED, cause not very clear. currently on room air. Watch out volume status given h/o CHF. Other chronic medical conditions: Continue with/resume home meds as when able. PAF, patient NSR, currently not on anticoagulation due to thrombocytopenia. hypertension, BP on the lower side , metoprolol dose decreased at presentation, uptitrate as able towards home dose. hx GERD Rheumatoid arthritis as per records CHF: chronic, unspecified type. no records available yet for prior echo. DVT prophylaxis. SCDs Re: Thrombocytopenia DNR Patient daughter Ms. Alma Dillard, contact #[phone]. Dtr and updated at bedside 03/06. Text document was generated using [employer] voice recognition software. It may contain grammatical or spelling errors. Kindly contact undersigned for clarification of any documentation item in question. Admission and Anticipated Discharge Date Admission Date: March 05, 2024 Subjective Patient was seen and examined at bedside. Patient was lying in bed, on room air, NAD. Patient denies any febrile illness, Had 2 loose stools overnight, none in the morning, patient reports overall feeling better today. Patient denies cough or chest pain or shortness of breath. Patient reports his strength improving. Patient had a good appetite today. Physical Exam Physical Exam: GENERAL: NAD, anxious, no respiratory distress SKIN: Pallor, warm HEENT: Pale palpebral conjunctivae, no ptosis, moist buccal mucosa, nasal cannula in place NECK : Supple, no tenderness CHEST : Decreased breath sounds, no tenderness HEART : rrr, no obvious murmurs ABDOMEN: Some distention, nontender EXTREMITIES : Bilateral LE erythema without tenderness, ble warmth noted. no other conspicuous deformities noted NEUROLOGIC : Coherent, no facial asymmetry, no other gross focality exam: scabbed wounds in labia major x 1 each side, scabbed wound in buttock and perineum, big coccygeal wound w/ yellow crust. No surrounding erythema/tenderness/purulent discharge/swelling noted. all ulcers unstageable. Results & Data Results & Data Vital Signs (Past 12 Hours) Vital Signs Temp Pulse Pulse Resp BP BP Pulse Ox 03/07/24 15:21 36.7 C 110 H 19 109/61 99 03/07/24 15:16 36.7 C 110 H 18 109/61 99 03/07/24 14:55 80 03/07/24 14:42 36.7 C 78 18 117/66 99 03/07/24 13:42 36.7 C 78 18 117/55 L 98 03/07/24 13:12 113/71 03/07/24 13:11 36.7 C 77 18 113/71 98 03/07/24 12:57 36.7 C 03/07/24 12:57 36.7 C 77 18 112/68 99 03/07/24 12:41 36.7 C 79 18 100 03/07/24 12:06 36.7 C 75 18 117/76 99 03/07/24 11:14 36.9 C 90 19 113/64 99 03/07/24 11:06 36.9 C 90 19 113/64 99 03/07/24 10:06 36.6 C 98 H 18 112/61 99 03/07/24 09:36 36.6 C 03/07/24 09:35 36.6 C 105 H 18 108/67 100 03/07/24 09:21 36.6 C 106 H 18 112/63 99 03/07/24 09:10 03/07/24 09:03 36.4 C L 111 H 18 108/69 99 03/07/24 07:43 36.6 C 100 H 19 112/56 L 99 03/07/24 07:33 101 H O2 Del Method 03/07/24 15:21 Room Air 03/07/24 15:16 03/07/24 14:55 03/07/24 14:42 03/07/24 13:42 03/07/24 13:12 03/07/24 13:11 03/07/24 12:57 03/07/24 12:57 03/07/24 12:41 03/07/24 12:06 03/07/24 11:14 Room Air 03/07/24 11:06 03/07/24 10:06 03/07/24 09:36 03/07/24 09:35 03/07/24 09:21 03/07/24 09:10 Room Air 03/07/24 09:03 03/07/24 07:43 Room Air 03/07/24 07:33
[2024-03-07 16:32] LABS: Hemoglobin 7.9 g/dl (12.0-16.0); Mean Corpuscular Hemoglobin 29.3 pg (25.0-34.0); Mean Corpuscular Hgb Conc 34.3 g/dL (32.0-36.0); Mean Corpuscular Volume 85.2 fL (80.0-100.0); Mean Platelet Volume 9.7 fL (9.4-12.4); Platelet Count 37 K/uL (130-400); RDW Standard Deviation 45.9 fL (36.4-46.3); White Blood Count 0.79 K/ul (4.8-10.8)
[2024-03-07 16:49] LABS: BUN Creatinine Ratio 25.6 (10-20); Creatinine Clr Calc Pharmacy 57.3 ml/min; Potassium 3.4 mmol/L (3.5-5.1)
[2024-03-07] MEDS: POTASSIUM CHLORIDE CRTAB 20 MEQ TABCR PO STA (17:29)
[2024-03-08 05:55] LABS: BUN Creatinine Ratio 25.3 (10-20); Calcium 7.2 mg/dl (8.6-10.3); Creatinine Clr Calc Pharmacy 56.6 ml/min; Hematocrit (blood only) 22.8 % (37.0-47.0); Hemoglobin 7.7 g/dl (12.0-16.0); Magnesium 1.6 mg/dl (1.7-2.4); Mean Corpuscular Hemoglobin 29.1 pg (25.0-34.0); Mean Corpuscular Hgb Conc 33.8 g/dL (32.0-36.0); Mean Platelet Volume 10.4 fL (9.4-12.4); Phosphorus 2.7 mg/dl (2.5-4.9); Platelet Count 24 K/uL (130-400); Potassium 3.6 mmol/L (3.5-5.1); RDW Standard Deviation 46.6 fL (36.4-46.3); Red Blood Count 2.65 M/uL (4.20-5.40); White Blood Count 0.52 K/ul (4.8-10.8)
[2024-03-08] MEDS: METOPROLOL SUCC 50MG EXT REL TAB PO SCH (08:10)
[2024-03-08] MEDS: MAGNESIUM SULFATE / D5W 1 GM/100 ML BAG IV SCH (08:49)
[2024-03-08] MEDS: POTASSIUM CHLORIDE CRTAB 20 MEQ TABCR PO STA (08:49)
--- NOTE | 2024-03-08 09:35 | Surgery Progress Note ---
Date of Service March 08, 2024 Assessment & Plan (1) Sacral ulcer: Plan: Per nursing, no new concerns overnight. No plans on surgical intervention. Patient's son does plan on visiting this afternoon. Will try to speak with him. Continue to recommend off loading and continue local wound care per wound care orders. Assessment and Plan reviewed with Dr. Maddox. 03/08/2024 11:30AM- I was able to speak with patient's son to inform him that there were no plans currently for surgical debridement. I was able to answer his questions to the best of my ability. He and his family, along with patient, are still deciding on their ultimate wishes with regard to care. Palliative care consult was conducted on Saturday, 03/06, and per that note, family is going to take the weekend to think about all options. Admission and Anticipated Discharge Date Admission Date: March 05, 2024 Jesus Paz is resting in bed, eating breakfast. No new concerns overnight. Results & Data Vital Signs (Past 12 Hours) Vital Signs Temp Pulse Pulse Resp BP Pulse Ox O2 Del Method 03/08/24 07:48 Room Air 03/08/24 07:11 36.7 C 98 H 20 115/46 L 95 Room Air 03/08/24 06:54 78 03/08/24 03:51 37.6 C H 84 16 113/66 97 Room Air 03/07/24 23:50 36.7 C 109 H 18 107/56 L 96 Room Air 03/07/24 23:29 85 PG Care Time/CCT Total # of Minutes Spent Total Time Spent with Patient: Total time spent is greater than 50% in coordination of care (as documented) at patient's floor/unit and/or counseling patient: Coding Level of Care Code 62442 SUB INP/OBS CARE 25MIN Diagnoses Sacral ulcer L98.429
--- NOTE | 2024-03-08 14:11 | Hospitalist Progress Note ---
Date of Service March 08, 2024 Assessment & Plan (1) Pancytopenia: Plan 73-year-old lady with PMH of PAF currently not on anticoagulation, HTN, GERD, CML undergoing chemotherapy on anti-infective prophylaxis, chronic pancytopenia, rheumatoid arthritis who was recently managed for about a month at [facility] [place] for blast crisis and was also seen by masonry supervisor during this stay for her acute on chronic CHF. 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 She was sent to the ED from there because of hemoglobin 7.5 and platelets of 5 in outpatient lab draw. Patient denied chest pain/shortness of breath/bleeding symptoms/fever/cough. 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 She is being managed for the following: Awaiting records from [facility]. Pancytopenia due to CML and antineoplastic chemotherapy Severe neutropenia HO CML: ongoing chemotherapy on anti-infective prophylaxis Patient was sent due to hemoglobin of 7.5 and platelets of 5000 in outpatient lab draw. Admitting WBC 0.67, Hb 7.1, platelets 6K. So far: 4 units of platelets and 2 unit of PRBC Hemoglobin of 7.7 and platelets 24K today Repeat CBC in afternoon. Hematology evaluated 03/06, maintain platelet count above 10,000 and hemoglobin above 7.5. Follow-up outpatient oncology. 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 At presentation, patient had multiple unstageable ulcers in the perineum and sacrococcygeal region. No erythema/purulent drainage noted. Wound care evaled, recommended surgical evaluation Held her home ciprofloxacin, c/w cefepime 03/06 and vancomycin 03/06 ---Vanco switched to doxy 03/06 due to hypersensitivity reaction to vanc. Sent wound culture and blood culture. Follow. ID consulted, await recommendation. General surgery consulted. WOCN on board. Mild hypernatremia: Admitting sodium of 147, up trended to 149. Na 144 currently. dc ivf. Repeat labs in am. Loose stools/ Norovirus gastroenteritis: dc ivf, better PO intake. c/w supportive care. Electrolyte abnormalities [hypokalemia and hypomagnesemia]: Likely secondary to above Patient reported multiple loose stools, liquidy in nature since prior to arrival. Admitting stool PCR and C. difficile negative. Repeat Stool PCR +ve for norovirus. Monitor and replete electrolytes, utilize psyllium fiber/cholestyramine/as needed Imodium. PO intake better, had 2 loose stool overnight. dc ivf. Hypoxia: Patient noted to be hypoxic in the ED, cause not very clear. currently on room air. Watch out volume status given h/o CHF. Other chronic medical conditions: Continue with/resume home meds as when able. PAF, patient NSR, currently not on anticoagulation due to thrombocytopenia. hypertension, BP on the lower side , metoprolol dose decreased at presentation, uptitrate as able towards home dose as needed. hx GERD Rheumatoid arthritis as per records CHF: chronic, unspecified type. no records available yet for prior echo. DVT prophylaxis. SCDs Re: Thrombocytopenia DNR Patient daughter Ms. Alma Dillard, contact #[phone]. Dtr and updated at bedside 03/06. Text document was generated using [employer] voice recognition software. It may contain grammatical or spelling errors. Kindly contact undersigned for clarification of any documentation item in question. Admission and Anticipated Discharge Date Admission Date: March 05, 2024 Subjective Patient was seen and examined at bedside. Patient was lying in bed, on room air, NAD. Patient denies any febrile illness, Had 2 loose stools overnight per RN, none in the morning, patient reports overall feeling better. Patient denies cough or chest pain or shortness of breath. Patient reports his strength improving. Patient is having good appetite here. Physical Exam Physical Exam: GENERAL: NAD, anxious, no respiratory distress SKIN: Pallor, warm HEENT: Pale palpebral conjunctivae, no ptosis, moist buccal mucosa, nasal cannula in place NECK : Supple, no tenderness CHEST : Decreased breath sounds, no tenderness HEART : rrr, no obvious murmurs ABDOMEN: Some distention, nontender EXTREMITIES : Bilateral LE erythema without tenderness, ble warmth noted. no other conspicuous deformities noted NEUROLOGIC : Coherent, no facial asymmetry, no other gross focality exam: scabbed wounds in labia major x 1 each side, scabbed wound in buttock and perineum, big coccygeal wound w/ yellow crust. No surrounding erythema/tenderness/purulent discharge/swelling noted. all ulcers unstageable. Results & Data Results & Data Vital Signs (Past 12 Hours) Vital Signs Temp Pulse Pulse Resp BP Pulse Ox O2 Del Method 03/08/24 13:45 65 03/08/24 10:49 36.5 C 71 18 100/39 L 98 Room Air 03/08/24 07:48 Room Air 03/08/24 07:11 36.7 C 98 H 20 115/46 L 95 Room Air 03/08/24 06:54 78 03/08/24 03:51 37.6 C H 84 16 113/66 97 Room Air
[2024-03-08 15:36] LABS: Hematocrit (blood only) 24.9 % (37.0-47.0); Hemoglobin 8.3 g/dl (12.0-16.0); Mean Corpuscular Hemoglobin 29.1 pg (25.0-34.0); Mean Corpuscular Hgb Conc 33.3 g/dL (32.0-36.0); Mean Corpuscular Volume 87.4 fL (80.0-100.0); Mean Platelet Volume 11.3 fL (9.4-12.4); Platelet Count 17 K/uL (130-400); RDW Coefficient of Variation 15.2 % (11.5-14.5); RDW Standard Deviation 48.3 fL (36.4-46.3); Red Blood Count 2.85 M/uL (4.20-5.40)
[2024-03-08] MEDS: CARBAMIDE PEROXIDE 6.5% 15 ML BTL OT SCH (20:02)
[2024-03-09 06:29] LABS: BUN Creatinine Ratio 28.6 (10-20); Calcium 7.5 mg/dl (8.6-10.3); Creatinine Clr Calc Pharmacy 56.5 ml/min; Magnesium 1.9 mg/dl (1.7-2.4); Phosphorus 2.7 mg/dl (2.5-4.9); Potassium 3.5 mmol/L (3.5-5.1)
[2024-03-09] MEDS: ALBUMIN 25% 12.5 GM/50 ML VIAL IV ONE (06:29)
[2024-03-09 06:34] LABS: Hematocrit (blood only) 22.2 % (37.0-47.0); Hemoglobin 7.5 g/dl (12.0-16.0); Mean Corpuscular Hemoglobin 28.8 pg (25.0-34.0); Mean Corpuscular Hgb Conc 33.8 g/dL (32.0-36.0); Mean Corpuscular Volume 85.4 fL (80.0-100.0); Platelet Count 13 K/uL (130-400); RDW Coefficient of Variation 15.2 % (11.5-14.5); RDW Standard Deviation 47.3 fL (36.4-46.3); White Blood Count 0.63 K/ul (4.8-10.8)
[2024-03-09] MEDS: POTASSIUM CHLORIDE CRTAB 20 MEQ TABCR PO STA (08:47)
[2024-03-09 13:08] LABS: Hematocrit (blood only) 24.8 % (37.0-47.0); Hemoglobin 8.3 g/dl (12.0-16.0); Mean Corpuscular Hgb Conc 33.5 g/dL (32.0-36.0); Mean Corpuscular Volume 86.7 fL (80.0-100.0); Mean Platelet Volume 11.9 fL (9.4-12.4); Platelet Count 12 K/uL (130-400); RDW Coefficient of Variation 15.4 % (11.5-14.5); RDW Standard Deviation 48.7 fL (36.4-46.3); Red Blood Count 2.86 M/uL (4.20-5.40); White Blood Count 0.81 K/ul (4.8-10.8)
--- NOTE | 2024-03-09 13:41 | Hospitalist Progress Note ---
Date of Service March 09, 2024 Assessment & Plan (1) Pancytopenia: Plan 73-year-old lady with PMH of PAF currently not on anticoagulation, HTN, GERD, CML undergoing chemotherapy on anti-infective prophylaxis, chronic pancytopenia, rheumatoid arthritis who was recently managed for about a month at [facility] [place] for blast crisis and was also seen by vibration technician during this stay for her acute on chronic CHF. 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 She was sent to the ED from there because of hemoglobin 7.5 and platelets of 5 in outpatient lab draw. Patient denied chest pain/shortness of breath/bleeding symptoms/fever/cough. 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 She is being managed for the following: Awaiting records from [facility]. Pancytopenia due to CML and antineoplastic chemotherapy Severe neutropenia HO CML: ongoing chemotherapy on anti-infective prophylaxis Patient was sent due to hemoglobin of 7.5 and platelets of 5000 in outpatient lab draw. Admitting WBC 0.67, Hb 7.1, platelets 6K. So far: 4 units of platelets and 2 unit of PRBC Hemoglobin of 8.3 and platelets 12K today, maybe stabilizing now, will follow. Repeat CBC in am, today's am and afternoon cbc reviewed. Hematology evaluated 03/06, maintain platelet count above 10,000 and hemoglobin above 7.5. Follow-up outpatient oncology. 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 At presentation, patient had multiple unstageable ulcers in the perineum and s acrococcygeal region. No purulent drainage noted. Wound care evaled, recommended surgical evaluation Held her home ciprofloxacin, c/w cefepime 03/06 and vancomycin 03/06 ---Vanco switched to doxy 03/06 due to hypersensitivity reaction to vanc. Bl Culture - nogrowth so far ID consulted, await recommendation. General surgery consulted. WOCN on board. Ble erythema and warmth increasing, ble venous doppler today to ro dvt, ID to eval today/await if antibiotic needs modified. Doxy changed to dapto. Will continue to monitor the patient. Pt's confirms she is off of eliquis for about a month per her OP onco's recs due to low platelets and low blood level. await ble venous doppler Mild hypernatremia: Admitting sodium of 147, up trended to 149. Na 140 currently. encourage PO fluid intake. Repeat labs in am. Loose stools/ Norovirus gastroenteritis: stools forming up, encourage PO intake. c/w supportive care. Electrolyte abnormalities [hypokalemia and hypomagnesemia]: Likely secondary to above Patient reported multiple loose stools, liquidy in nature since prior to arrival. Admitting stool PCR and C. difficile negative. Repeat Stool PCR +ve for norovirus. Monitor and replete electrolytes, utilize psyllium fiber/cholestyramine/as needed Imodium. PO intake better, had 3 formed stool overnight. Hypoxia: Patient noted to be hypoxic in the ED, cause not very clear. currently on room air. Watch out volume status given h/o CHF. Other chronic medical conditions: Continue with/resume home meds as when able. PAF, patient NSR, currently not on anticoagulation due to thrombocytopenia. hypertension, BP on the lower side , metoprolol dose decreased at presentation, uptitrate as able towards home dose as needed. hx GERD Rheumatoid arthritis as per records CHF: chronic, unspecified type. no records available yet for prior echo. DVT prophylaxis. SCDs Re: Thrombocytopenia DNR Patient daughter Ms. Alma Dillard, contact #[phone]. Dtr and updated at bedside 03/06. Pt's updated at bedside 03/09. Text document was generated using [employer] voice recognition software. It may contain grammatical or spelling errors. Kindly contact undersigned for clarification of any documentation item in question. Admission and Anticipated Discharge Date Admission Date: March 05, 2024 Subjective Patient was seen and examined at bedside. Patient was lying in bed, on room air, NAD. Patient denies any febrile illness, Had 3 formed stools overnight per RN, none in the morning, patient reports overall feeling better and has been eating better. Patient denies cough or chest pain or shortness of breath. Pt's at bedside who was also updated on plan of care. He stated that they are still deciding on goals of care and havenot come to decision but they understand she has poor prognosis. Answered all his questions. Physical Exam Physical Exam: GENERAL: NAD, anxious, no respiratory distress SKIN: Pallor, warm HEENT: Pale palpebral conjunctivae, no ptosis, moist buccal mucosa, nasal cannula in place NECK : Supple, no tenderness CHEST : Decreased breath sounds, no tenderness HEART : rrr, no obvious murmurs ABDOMEN: Some distention, nontender EXTREMITIES : Bilateral LE erythema without tenderness, ble warmth noted. no other conspicuous deformities noted NEUROLOGIC : Coherent, no facial asymmetry, no other gross focality exam: scabbed wounds in labia major x 1 each side, scabbed wound in buttock and perineum, big coccygeal wound w/ yellow crust. some surrounding erythema, no tenderness/purulent discharge noted. all ulcers unstageable. Results & Data Results & Data Vital Signs (Past 12 Hours) Vital Signs Temp Pulse Pulse Resp BP Pulse Ox O2 Del Method 03/09/24 11:17 37.0 C 78 18 107/50 L 98 Room Air 03/09/24 08:08 88 03/09/24 08:08 Room Air 03/09/24 07:07 36.8 C 84 17 105/44 L 98 Room Air 03/09/24 04:29 36.7 C 74 16 108/50 L 98 Room Air
--- NOTE | 2024-03-09 15:28 | Infectious Disease Consult ---
Date of Service March 09, 2024 Telehealth Information I performed this visit using a real-time telehealth connection between my location and the patients location ([facility]). After connecting through interactive tele-video, patient was identified by name and date of and/or wristband check.Patient (or authorized healthcare branch service representative) was informed that this was a telemedicine visit and it was being conducted confidentially over secure lines. My office door was closed and no o ne else was present in the room with me.Patient (or authorized healthcare branch service representative) provided consent to proceed with the visit, expressed an understanding of privacy and security of the telemedicine visit, and gave permission to have a hospital branch service representative in the room in order to assist with the visit and to conduct portions of the visit, as needed. I informed the patient (or authorized healthcare branch service representative) that I reviewed their record and presented the opportunity for them to ask any questions regarding the visit today. The patient agreed to participate. Assessment & Plan (1) Fever and neutropenia: (2) Cellulitis of leg: Plan: Assessment: Neutropenic fever fever resolved R/o cellulitis of LE b/l Norovirus gastroenterititis Multiple decubitus ulcers (R buttock, L buttock and coccygeal area) Hx of allergy to vanco (rash) Plan: - Daptomycin 6-8 mg/kg iv qd to cover for MRSA empiricially - Continue cefepime at current dose for neutropenic fever - Stop cipro and doxycycline as they do not provide any additional benefit while on cefepime and daptomycin. - Keep legs elevated and reassess in a few days It is not entirely convinicing that the patient has symmetric presentation w/ the faint redness from above ankles to inner thighs w/ warmth limited to legs, but the redness and tenderness are new per patient and her son. Given her profound neutropenia, it seems reaonsable to try adding MRSA coverage for now and monitor. 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 Low grade fever noted on 03/06 and 03/08. ID was called to evaluate the patient for BLE cellulitis in severe neutropenic patient. Currrently on cefepime, doxycycline, cipro and acyclovir. The patient is resting in chair comfortably. She reports tenderness to both legs but unclear about ongoing pain, though. Denies fever/chills. No obvious coughing or cp. Scott catheter is in place for incontinence and sacral wound w/ fecal incontinence. BM is improving. Sacral wound is open but healing per nursing staff ([facility]). Allergies Allergy/AdvReac Type Severity Reaction Status Date / Time vancomycin Allergy Mild Rash Verified 03/06/24 22:21 pollen extracts Allergy Unknown UNKOWN Unverified 03/05/24 18:46 Home Medications Medication Instructions Recorded Confirmed Type acetaminophen 325 mg tablet 650 mg PO Q6H PRN Fever greater 01/27/24 03/05/24 History (Tylenol) than 100/Pain acyclovir 400 mg tablet 400 mg PO BID 01/27/24 03/05/24 History bisacodyl 10 mg rectal suppository 10 mg [place] DIRECTED PRN 01/27/24 03/05/24 History Constipation cholecalciferol (vitamin D3) 25 25 mcg PO QAM 01/27/24 03/05/24 History mcg (1,000 unit) tablet ciprofloxacin HCl 500 mg tablet 500 mg PO BID 01/27/24 03/05/24 History folic acid 1 mg tablet 1 mg PO QAM 01/27/24 03/05/24 History furosemide 40 mg tablet 40 mg PO QAM 01/27/24 03/05/24 History multivitamin 1 tab PO QAM 01/27/24 03/05/24 History ondansetron 4 mg disintegrating 4 mg PO Q6H PRN NAUSEA/VOMITTING 01/27/24 03/05/24 History tablet pantoprazole 40 mg tablet,delayed 40 mg PO DAILYBB 01/27/24 03/05/24 History release posaconazole 100 mg tablet,delayed See Rx Instructions .Route .COMPLEX 01/27/24 03/05/24 History release sodium phosphates 19 gram-7 118 ml [place] DAILY PRN CONSTIPATION 01/27/24 03/05/24 History gram/118 mL enema (Fleet Enema) Magic Mix See Rx Instructions .Route .COMPLEX 10/03/24 10/03/24 History calcium carbonate 500 mg PO QDL 03/05/24 03/05/24 History carbamide peroxide 6.5 % ear drops 5 drp otic (ear) BID 03/05/24 03/05/24 History (Debrox) magnesium hydroxide 400 mg/5 mL 2,400 mg PO DAILY PRN Constipation 03/05/24 03/05/24 History oral suspension (Milk of Magnesia) metoprolol succinate 100 mg 100 mg PO DAILY 03/05/24 03/05/24 History capsule sprinkle, ext. release 24 hr polyvinyl alcohol 1.4 % eye drops 1 drp OPB Q8H Blepharitis 03/05/24 03/05/24 History (Artificial Tears (polyvinyl alcohol)) potassium chloride 20 mEq/15 mL 60 meq PO Q12H 03/05/24 03/05/24 History oral liquid Patient History Social History Smoking Status: Never smoker Hx Alcohol Use: No Hx Substance Use: No Preferred Language: Turkmen Communication Ability: Effective Freezer Operator Required: No Beliefs That Will Affect Care: Adventism Current Living Situation: Rehab Current Living Situation Comment: [facility] currently, home [place]. Other Information That Helps Us Care for You: No Feels Safe at Home: Yes Safety Concerns: Feels Safe At This Time Assistive Devices: Cane and Walker Assistive Devices Comment: Shower chair Review of Systems as HPI Physical Exam Ext: faint redness on legs from above ankle to medial thighs b/l, warmth limited to legs w/ tenderness, no tenderness on thighs; the redness on legs are skipping w/ areas of clear skin, blanching, the skin is tense per nursing staff. Results & Data Vital Signs (Past 12 Hours) Vital Signs Temp Pulse Pulse Resp BP Pulse Ox O2 Del Method 03/09/24 14:32 82 03/09/24 11:17 37.0 C 78 18 107/50 L 98 Room Air 03/09/24 08:08 88 03/09/24 08:08 Room Air 03/09/24 07:07 36.8 C 84 17 105/44 L 98 Room Air 03/09/24 04:29 36.7 C 74 16 108/50 L 98 Room Air Laboratory Results WBC 0.81K H 8.3 Plt 12K Cr 0.84 MRSA screen (03/06): pos Blood cx (03/06/24): NGTD GI pathogen panel (03/06): norovirus CXR (03/05): 1. Cardiomegaly with suggestion of interstitial pulmonary edema. 2. Trace right and small left pleural effusions with mild bibasilar atelectasis. Medications Administered as above
[2024-03-09] MEDS: DAPTOmycin 450 MG in SYRINGE 0 ML IV SCH (16:44)
--- NOTE | 2024-03-09 22:20 | Ultrasound Report ---
Exam(s): US VENOUS BILATERAL LOWER EXTREMITIES EXAM: US Duplex Bilateral Lower Extremities Veins CLINICAL HISTORY: Reason for exam: ble redness/warmth worsening. ro dvt. TECHNIQUE: Real-time duplex ultrasound scan of the bilateral lower extremity veins integrating B-mode two-dimensional vascular structure, Doppler spectral analysis, color flow Doppler imaging and compression. COMPARISON: No relevant prior studies available. FINDINGS: Right deep veins: There is limited assessment of the right mid and distal femoral vein due to edema the calfs are limited due to edema and swelling. There is no DVT as visualized Right superficial veins: Unremarkable. No thrombus in the visualized right great saphenous vein. Left deep veins: Unremarkable. No DVT in the left common femoral, femoral, proximal deep femoral or popliteal veins. The veins demonstrate normal color flow, are normally compressible, with normal phasic flow and/or augmentation response. Left superficial veins: Unremarkable. No thrombus in the visualized left great saphenous vein. Soft tissues: No acute findings. No popliteal cyst. Lymph nodes: A few lymph nodes demonstrated within the right groin not abnormal by size criteria. IMPRESSION: Limited assessment as described, not thrombosis as visualized Electronically signed by: Terrance Calhoun MD 03/09/24 22:19 PM
[2024-03-10 06:50] LABS: Hemoglobin 6.6 g/dl (12.0-16.0); Mean Corpuscular Hemoglobin 28.6 pg (25.0-34.0); Mean Corpuscular Volume 86.6 fL (80.0-100.0); Platelet Count 10 K/uL (130-400); RDW Coefficient of Variation 15.5 % (11.5-14.5); Red Blood Count 2.31 M/uL (4.20-5.40); White Blood Count 0.71 K/ul (4.8-10.8)
[2024-03-10 07:00] LABS: BUN Creatinine Ratio 27.7 (10-20); Calcium 7.5 mg/dl (8.6-10.3); Creatinine Clr Calc Pharmacy 50.8 ml/min; Magnesium 1.8 mg/dl (1.7-2.4); Phosphorus 3.1 mg/dl (2.5-4.9); Potassium 3.8 mmol/L (3.5-5.1)
[2024-03-10] MEDS ORDERED: SODIUM CHLORIDE 0.9% 250 ML IV PRN (07:43)
[2024-03-10] MEDS ORDERED: FUROSEMIDE INJ 20 MG/2 ML VIAL IV ONE (14:34)
--- NOTE | 2024-03-10 14:36 | Hospitalist Progress Note ---
Date of Service March 10, 2024 Assessment & Plan (1) Pancytopenia: Plan 73-year-old lady with PMH of PAF currently not on anticoagulation, HTN, GERD, CML undergoing chemotherapy on anti-infective prophylaxis, chronic pancytopenia, rheumatoid arthritis who was recently managed for about a month at [facility] [place] [facility] for blast crisis and was also seen by inspector exhaust emissions during this stay for her acute on chronic CHF. She was discharged to [facility] facility for rehab about 2 weeks ago [facility]. She was sent to the ED from there because of hemoglobin 7.5 and platelets of 5 in outpatient lab draw. Patient denied chest pain/shortness of breath/bleeding symptoms/fever/cough. Patient does report multiple loose stools, was noted to be hypoxic at presentation [O2 sats of 80% at ED], reported BLE redness/ warmth ongoing for 3 to 4 days [employer] [employer]. She is being managed for the following: Awaiting records from [facility]. Pancytopenia due to CML and antineoplastic chemotherapy Severe neutropenia HO CML: ongoing chemotherapy on anti-infective prophylaxis (posaconazole and cipro) Patient was sent due to hemoglobin of 7.5 and platelets of 5000 in outpatient lab draw. Admitting WBC 0.67, Hb 7.1, platelets 6K. So far: 4 units of platelets and 2 unit of PRBC Hemoglobin of 6.6 and platelets 10K today, transfuse 1 unit prbc and 2 unit plt today. labs after transfusion and in am. Hematology evaluated 03/06, maintain platelet count above 10,000 and hemoglobin above 7.5. Follow-up outpatient oncology. BLE cellulitis in severe neutropenic patient Multiple pressure ulcers: right buttock, left buttock, coccygeal area Patient complained of BLE erythema and warmth for 3 to 4 days [employer] [employer]. At presentation, patient had multiple unstageable ulcers in the perineum and sacrococcygeal region. No purulent drainage noted. Wound care evaled, recommended surgical evaluation Held her home ciprofloxacin, c/w cefepime 03/06 and vancomycin 03/06 ---Vanco switched to doxy 03/06 due to hypersensitivity reaction to vanc --> ID evaled 03/10, added dapto 03/09, get CPK, c/w cefepime, reassess in few days. Bl Culture - no growth so far General surgery evaled - no Ix. WOCN on board. Ble erythema and warmth was increasing as of 03/09, Ble venous doppler neg for DVT, ATB changes made per ID recs. Today warmth and redness improving. Pt's confirms she is off of eliquis for about a month per her OP onco's recs due to low platelets and low blood level. Acute on chronic CHF: unspecified CHF, will get echo. BLE pitting edema and pul edema on CXR. cardio consult, await recs. Mild hypernatremia: Admitting sodium of 147. Resolved. Loose stools/ Norovirus gastroenteritis: stools forming up, encourage PO intake. c/w supportive care. Electrolyte abnormalities [hypokalemia and hypomagnesemia]: Likely secondary to above Patient reported multiple loose stools, liquidy in nature since prior to arrival. Admitting stool PCR and C. difficile negative. Repeat Stool PCR +ve for norovirus. Monitor and replete electrolytes, utilize psyllium fiber/cholestyramine/as needed Imodium. PO intake better, having better formed stools now. Hypoxia: Patient noted to be hypoxic in the ED, cause not very clear. currently on room air. Watch out volume status given h/o CHF. Other chronic medical conditions: Continue with/resume home meds as when able. PAF, patient NSR, currently not on anticoagulation due to thrombocytopenia. hypertension, BP on the lower side , metoprolol dose decreased at presentation, uptitrate as able towards home dose as needed. hx GERD Rheumatoid arthritis as per records CHF: chronic, unspecified type. no records available yet for prior echo. DVT prophylaxis. SCDs Re: Thrombocytopenia DNR Patient daughter Ms. Alma Dillard, contact #[phone]. Dtr and updated at bedside 03/06. Pt's updated at bedside 03/10. PT/OT ANA MARÍA izquierdo to assist w/ DC plan. Text document was generated using [employer] voice recognition software. It may contain grammatical or spelling errors. Kindly contact undersigned for clarification of any documentation item in question. Admission and Anticipated Discharge Date Admission Date: March 05, 2024 Subjective Patient was seen and examined at bedside. Patient was lying in bed, on room air, NAD. Patient denies any febrile illness, Had 2 formed stools overnight per RN, one in the morning, patient reports overall feeling better and has been eating better. Patient denies cough or chest pain or shortness of breath. Pt's at bedside who was also updated on plan of care. He stated that they are still deciding on goals of care and havenot come to decision but they understand she has poor prognosis. Answered all his questions. Physical Exam Physical Exam: GENERAL: NAD, anxious, no respiratory distress SKIN: Pallor, warm HEENT: Pale palpebral conjunctivae, no ptosis, moist buccal mucosa, nasal cannula in place NECK : Supple, no tenderness CHEST : Decreased breath sounds, no tenderness HEART : rrr, no obvious murmurs ABDOMEN: Some distention, nontender EXTREMITIES : Bilateral LE erythema without tenderness, ble warmth improving. no other conspicuous deformities noted. 2+ pitting edema. NEUROLOGIC : Coherent, no facial asymmetry, no other gross focality exam: scabbed wounds in labia major x 1 each side, scabbed wound in buttock and perineum, big coccygeal wound w/ yellow crust. some surrounding erythema, no tenderness/purulent discharge noted. all ulcers unstageable. Results & Data Results & Data Vital Signs (Past 12 Hours) Vital Signs Temp Pulse Pulse Resp BP BP Pulse Ox 03/10/24 13:42 36.6 C 77 18 105/51 L 100 03/10/24 13:24 36.6 C 80 18 104/67 100 03/10/24 12:11 36.6 C 81 18 116/70 98 03/10/24 12:09 36.6 C 78 18 103/72 100 03/10/24 11:12 36.7 C 76 19 118/61 100 03/10/24 10:12 36.4 C L 71 19 110/53 L 100 03/10/24 09:42 36.5 C 81 18 93/53 L 100 03/10/24 09:27 36.5 C 79 18 98 03/10/24 09:04 36.3 C L 86 16 108/62 98 03/10/24 07:14 36.8 C 78 19 101/54 L 100 03/10/24 03:56 36.4 C L 81 18 108/51 L 98 O2 Del Method 03/10/24 13:42 03/10/24 13:24 03/10/24 12:11 Room Air 03/10/24 12:09 03/10/24 11:12 03/10/24 10:12 03/10/24 09:42 03/10/24 09:27 03/10/24 09:04 03/10/24 07:14 Room Air 03/10/24 03:56 Room Air
--- NOTE | 2024-03-10 14:45 | Cardiology Consultation ---
Date of Consultation March 10, 2024 History of Present Illness Reason for Consultation: "acute on chronic heart failure and soft blood pressures" [facility] Attending Physician: Pranay Fernandez MD Allergies Allergy/AdvReac Type Severity Reaction Status Date / Time vancomycin Allergy Mild Rash Verified 03/06/24 22:21 pollen extracts Allergy Unknown UNKOWN Unverified 03/05/24 18:46 Home Medications Medication Instructions Recorded Confirmed Type acetaminophen 325 mg tablet 650 mg PO Q6H PRN Fever greater 01/27/24 03/05/24 History (Tylenol) than 100/Pain acyclovir 400 mg tablet 400 mg PO BID 01/27/24 03/05/24 History bisacodyl 10 mg rectal suppository 10 mg [place] DIRECTED PRN 01/27/24 03/05/24 History Constipation cholecalciferol (vitamin D3) 25 25 mcg PO QAM 01/27/24 03/05/24 History mcg (1,000 unit) tablet ciprofloxacin HCl 500 mg tablet 500 mg PO BID 01/27/24 03/05/24 History folic acid 1 mg tablet 1 mg PO QAM 01/27/24 03/05/24 History furosemide 40 mg tablet 40 mg PO QAM 01/27/24 03/05/24 History multivitamin 1 tab PO QAM 01/27/24 03/05/24 History ondansetron 4 mg disintegrating 4 mg PO Q6H PRN NAUSEA/VOMITTING 01/27/24 03/05/24 History tablet pantoprazole 40 mg tablet,delayed 40 mg PO DAILYBB 01/27/24 03/05/24 History release posaconazole 100 mg tablet,delayed See Rx Instructions .Route .COMPLEX 01/27/24 03/05/24 History release sodium phosphates 19 gram-7 118 ml [place] DAILY PRN CONSTIPATION 01/27/24 03/05/24 History gram/118 mL enema (Fleet Enema) Magic Mix See Rx Instructions .Route .COMPLEX 03/05/24 03/05/24 History calcium carbonate 500 mg PO QDL 03/05/24 03/05/24 History carbamide peroxide 6.5 % ear drops 5 drp otic (ear) BID 03/05/24 03/05/24 History (Debrox) magnesium hydroxide 400 mg/5 mL 2,400 mg PO DAILY PRN Constipation 03/05/24 03/05/24 History oral suspension (Milk of Magnesia) metoprolol succinate 100 mg 100 mg PO DAILY 03/05/24 03/05/24 History capsule sprinkle, ext. release 24 hr polyvinyl alcohol 1.4 % eye drops 1 drp OPB Q8H Blepharitis 03/05/24 03/05/24 History (Artificial Tears (polyvinyl alcohol)) potassium chloride 20 mEq/15 mL 60 meq PO Q12H 03/05/24 03/05/24 History oral liquid Patient History Social History Smoking Status: Never smoker Hx Alcohol Use: No Hx Substance Use: No Preferred Language: Persian Communication Ability: Effective Spice Mixer Required: No Beliefs That Will Affect Care: Orthodoxy Current Living Situation: Rehab Current Living Situation Comment: [facility] currently, home [place]. Other Information That Helps Us Care for You: No Feels Safe at Home: Yes Safety Concerns: Feels Safe At This Time Assistive Devices: Cane and Walker Assistive Devices Comment: Shower chair Results & Data Vital Signs (Past 12 Hours) Vital Signs Temp Pulse Pulse Resp BP BP Pulse Ox 03/10/24 13:57 36.5 C 71 18 116/60 100 03/10/24 13:42 36.6 C 77 18 105/51 L 100 03/10/24 13:24 36.6 C 80 18 104/67 100 03/10/24 12:11 36.6 C 81 18 116/70 98 03/10/24 12:09 36.6 C 78 18 103/72 100 03/10/24 11:12 36.7 C 76 19 118/61 100 03/10/24 10:12 36.4 C L 71 19 110/53 L 100 03/10/24 09:42 36.5 C 81 18 93/53 L 100 03/10/24 09:27 36.5 C 79 18 98 03/10/24 09:04 36.3 C L 86 16 108/62 98 03/10/24 07:14 36.8 C 78 19 101/54 L 100 03/10/24 03:56 36.4 C L 81 18 108/51 L 98 O2 Del Method 03/10/24 13:57 03/10/24 13:42 03/10/24 13:24 10/08/24 12:11 Room Air 03/10/24 12:09 03/10/24 11:12 03/10/24 10:12 03/10/24 09:42 03/10/24 09:27 03/10/24 09:04 03/10/24 07:14 Room Air 03/10/24 03:56 Room Air
--- NOTE | 2024-03-10 15:22 | Cardiology Consultation ---
Date of Consultation March 10, 2024 Assessment & Plan (1) Acute on chronic heart failure: (2) CMML (chronic myelomonocytic leukemia): (3) Cellulitis of leg: Plan Assessment: 73 year old female admitted due to profound anemia and thrombocytopenia in the setting of CML on current chemotherapy. Cardiology input requested due to evidence of volume overload in the setting of low blood pressures Plan: Acute on Chronic heart failure versus not cardiac volume overload in the Setting of being transfusion dependent and having low albumin levels: -No echocardiogram on file, order placed to obtain resting echocardiogram for further evaluation. -Recent hospitalization for CHF and blast crisis. -Patient is with moderate volume overload on exam. Recommend that patient receive Lasix 20mg IV Q6H. Keep Scott catheter in place. Also confirmed that patient is receiving a one time dose of Lasix 20mg IV in between units of blood. -Continue Toprol xl 50mg Daily. -Agree with primary team's plan for administering Albumin -Patient has a Cor arrhythmia and fluid status monitor in place (removable) that we will attempt to obtain recent device data from. -Follows with Replaced by [facility]. -Sclera noted to be icteric during exam, will add on LFTs in the AM -Close monitoring of fluid status with daily weights, strict I&O and close monitoring of renal function/serum electrolytes. -Goal serum K > 4.0 and serum Mag> 2.0 -Will await echocardiogram for further recommendations. CMML: -Currently on chemotherapy. Continued management per primary team and Heme/Onc Cellulitis of lower extremities: -Vascular ultrasound negative for DVT -ID on consult -Continued IV antibiotics as ordered by ID and primary team. Case has been discussed with Dr. Montoya. Further recommendations regarding plan of care as per his assessment. I spent a total of 40 minutes on the date of service in preparation, delivery, documentation of the care provided to the patient excluding any time spent in the performance of separately billed services. [facility] Supervising Physician Co-Signing Physician Notes Attending attestation: Case reviewed with the advanced practitioner. I have personally performed a history and physical examination on the patient. I have reviewed the advanced practitioner's documentation on the date of service referenced in note, and I agree with, and take responsibility for the plan of care. Patient follows with Replaced by [facility] cardi[facility] for history of HFpEF and paroxysmal atrial fibrillation. Currently in sinus rhythm. Had recently been hospitalized in [place] for 1 month. Transferred to a local [facility] for rehab and readmitted. Patient has a ZOLL Microcor Patch, she has an external device utilized to monitor thoracic impedance and volume status. I counseled the patient's son that I think it could be removed while she is in the hospital. I have no doubt that she is volume overloaded at present. Chest x-ray and repeat echocardiogram pending. Recommend IV albumin, furosemide 20 mg IV every 6 hours with Scott catheter in place and patient receiving transfusion of packed red blood cells at time of assessment. I spent a total of 25 minutes coordinating, documenting, and providing care for this patient excluding time spent in the performance of separately billed services or time spent by another provider. Weston Mnotoya DO History of Present Illness Reason for Consultation: "acute on chronic HF and soft blood pressures" Requesting Physician: Wendy ghosh Attending Physician: Pranay Fernandez MD History of Present Illness HPI: Patient is a 73 year old female with complex PMHx significant for P. A-fib (not on aC therapy), HTN, GERD, CML on chemo, chronic pancytopenia and RA that presented to the ER on 03/05/2024 due to abnormal labs suggesting an HgB of 7.5 and platelets of 5. Of note, Patient was last seen in the ER here January 2024 for acute CHF and blast crisis. She was subsequently transferred to [facility] in [place] for further management. 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 Cardiomegaly with suggestion of interstitial pulmonary edema. 2. Trace right and small left pleural effusions with mild bibasilar atelectasis. H/H 11/07/19.0 Platelet 10 Telemetry demonstrates SR with PAC's Rate 60-80s Patient is resting in bed at time of exam with family at bedside. she complains of weakness and just feeling Poorly in general. Endorses some "very mild" chest pressure on the right upper anterior chest wall. Denies palpitations, shortness of breath or near syncope symptoms. Does endorse leg swelling. Son states it has been slowly progressive over the past two weeks. Allergies Allergy/AdvReac Type Severity Reaction Status Date / Time vancomycin Allergy Mild Rash Verified 03/06/24 22:21 pollen extracts Allergy Unknown UNKOWN Unverified 03/05/24 18:46 Home Medications Medication Instructions Recorded Confirmed Type acetaminophen 325 mg tablet 650 mg PO Q6H PRN Fever greater 01/27/24 03/05/24 History (Tylenol) than 100/Pain acyclovir 400 mg tablet 400 mg PO BID 01/27/24 03/05/24 History bisacodyl 10 mg rectal suppository 10 mg LA DIRECTED PRN 01/27/24 03/05/24 History Constipation cholecalciferol (vitamin D3) 25 25 mcg PO QAM 01/27/24 03/05/24 History mcg (1,000 unit) tablet ciprofloxacin HCl 500 mg tablet 500 mg PO BID 01/27/24 03/05/24 History folic acid 1 mg tablet 1 mg PO QAM 01/27/24 03/05/24 History furosemide 40 mg tablet 40 mg PO QAM 01/27/24 03/05/24 History multivitamin 1 tab PO QAM 01/27/24 03/05/24 History ondansetron 4 mg disintegrating 4 mg PO Q6H PRN NAUSEA/VOMITTING 01/27/24 03/05/24 History tablet pantoprazole 40 mg tablet,delayed 40 mg PO DAILYBB 01/27/24 03/05/24 History release posaconazole 100 mg tablet,delayed See Rx Instructions .Route .COMPLEX 01/27/24 03/05/24 History release sodium phosphates 19 gram-7 118 ml LA DAILY PRN CONSTIPATION 01/27/24 03/05/24 History gram/118 mL enema (Fleet Enema) Magic Mix See Rx Instructions .Route .COMPLEX 03/05/24 03/05/24 History calcium carbonate 500 mg PO QDL 03/05/24 03/05/24 History carbamide peroxide 6.5 % ear drops 5 drp otic (ear) BID 03/05/24 03/05/24 History (Debrox) magnesium hydroxide 400 mg/5 mL 2,400 mg PO DAILY PRN Constipation 03/05/24 03/05/24 History oral suspension (Milk of Magnesia) metoprolol succinate 100 mg 100 mg PO DAILY 03/05/24 03/05/24 History capsule sprinkle, ext. release 24 hr polyvinyl alcohol 1.4 % eye drops 1 drp OPB Q8H Blepharitis 03/05/24 03/05/24 History (Artificial Tears (polyvinyl alcohol)) potassium chloride 20 mEq/15 mL 60 meq PO Q12H 03/05/24 03/05/24 History oral liquid Patient History Social History Smoking Status: Never smoker Hx Alcohol Use: No Hx Substance Use: No Preferred Language: Nigerian Communication Ability: Effective Air Export Agent Required: No Beliefs That Will Affect Care: Sikh Current Living Situation: Rehab Current Living Situation Comment: [facility] currently, home [place]. Other Information That Helps Us Care for You: No Feels Safe at Home: Yes Safety Concerns: Feels Safe At This Time Assistive Devices: Cane and Walker Assistive Devices Comment: Shower chair Review of Systems Review of Systems: All systems reviewed & are unremarkable except as noted in HPI & below Physical Exam Constitutional: + ill appearing; no acute distress Eyes: sclerae not anicteric (icteric sclera) Neck: normal visual inspection and trachea midline Respiratory: normal respiratory effort; no respiratory distress and no labored breathing Auscultation: lungs clear to auscultation bilaterally; no crackles, no rales, no rhonchi and no wheezes Cardiovascular: Rate/Rhythm: regular rate and regular rhythm Heart Sounds: normal S1 and normal S2 Vessels: dorsalis pedis pulses present; no JVD Extremities: + edema (+ 2 BLE) Skin: + erythema (bilateral lower extremities ) Psychiatric: Orientation: alert and oriented x 3 Affect: + anxious affect Results & Data Vital Signs (Past 12 Hours) Vital Signs Temp Pulse Pulse Resp BP BP Pulse Ox 03/10/24 14:27 36.5 C 79 18 110/57 L 100 03/10/24 13:57 36.5 C 71 18 116/60 100 03/10/24 13:42 36.6 C 77 18 105/51 L 100 03/10/24 13:24 36.6 C 80 18 104/67 100 03/10/24 12:11 36.6 C 81 18 116/70 98 03/10/24 12:09 36.6 C 78 18 103/72 100 03/10/24 11:12 36.7 C 76 19 118/61 100 03/10/24 10:12 36.4 C L 71 19 110/53 L 100 03/10/24 09:42 36.5 C 81 18 93/53 L 100 03/10/24 09:27 36.5 C 79 18 98 03/10/24 09:04 36.3 C L 86 16 108/62 98 03/10/24 07:14 36.8 C 78 19 101/54 L 100 03/10/24 03:56 36.4 C L 81 18 108/51 L 98 O2 Del Method 03/10/24 14:27 03/10/24 13:57 03/10/24 13:42 03/10/24 13:24 03/10/24 12:11 Room Air 03/10/24 12:09 03/10/24 11:12 03/10/24 10:12 03/10/24 09:42 03/10/24 09:27 03/10/24 09:04 03/10/24 07:14 Room Air 03/10/24 03:56 Room Air Laboratory Results CBC 03/10/24 Range/Units 05:36 WBC 0.71 L* (4.8-10.8) K/ul RBC 2.31 L (4.20-5.40) M/uL Hgb 6.6 L* (12.0-16.0) g/dl Hct 20.0 L* (37.0-47.0) % Plt Count 10 L* (130-400) K/uL Comprehensive Metabolic Panel 03/10/24 Range/Units 05:36 Sodium 140 (136-145) mmol/L Potassium 3.8 (3.5-5.1) mmol/L Chloride 117 H (98-107) mmol/L Carbon Dioxide 18 L (21-32) mmol/L BUN 26 H (6-23) mg/dl Creatinine 0.94 (0.6-1.2) mg/dl Glucose 75 (70-99(Fasting)) mg/dl Calcium 7.5 L (8.6-10.3) mg/dl Intake and Output 03/10/24 03/10/24 03/10/24 06:59 14:59 22:59 Intake Total 600 / 1330 927 / 927 Output Total 325 / 630 2 / 2 Balance 275 / 700 925 / 925 Intake: Oral 600 / 1280 650 / 650 Intake (Blood Product) Amt Packed Cells, Leukored, Irrad 0 / 0 Unit [id number] Pr Plp3 Unit [id number] Output: Urine Amount (Catheter) 325 / 625 Scott/Indwelling 325 / 625 # Bowel Movements 2 / 2 Other: Weight 78 kg Weight Measurement Method Built in [facility]
[2024-03-10] MEDS: FUROSEMIDE INJ 20 MG/2 ML VIAL IV ONE (17:21)
[2024-03-10] MEDS: ALBUMIN 25% 25 GM/100 ML VIAL IV ONE (17:25)
[2024-03-10] MEDS ORDERED: FUROSEMIDE INJ 20 MG/2 ML VIAL IV SCH (18:00)
[2024-03-10 18:28] LABS: Hematocrit (blood only) 23.8 % (37.0-47.0); Hemoglobin 8.1 g/dl (12.0-16.0); Mean Corpuscular Hemoglobin 29.1 pg (25.0-34.0); Mean Corpuscular Volume 85.6 fL (80.0-100.0); Mean Platelet Volume 12.6 fL (9.4-12.4); Platelet Count 24 K/uL (130-400); RDW Coefficient of Variation 14.9 % (11.5-14.5); RDW Standard Deviation 46.9 fL (36.4-46.3); Red Blood Count 2.78 M/uL (4.20-5.40); White Blood Count 0.71 K/ul (4.8-10.8)
--- NOTE | 2024-03-10 18:37 | XRay Report ---
SINGLE VIEW CHEST CLINICAL HISTORY: Hypoxia FINDINGS: An AP, portable, upright chest radiograph is compared to study dated 03/05/2024. The examina tion is degraded by portable technique and apical lordotic positioning. A left-sided PICC line is unc hanged in position. The heart is enlarged noting atherosclerotic calcification of the thoracic aorta. There is mild pulmonary vascular congestion. This is improved from previous. Scarring/atelectasis is noted at the lung bases. There is trace left pleural effusion. No pneumothorax is seen. The skeletal structures are osteopenic. The bony thorax is grossly intact. Arthritic change is seen in the should ers. IMPRESSION: 1. Cardiomegaly with mild pulmonary vascular congestion. This has improved from 03/05/2024. 2. A trace left pleural effusion persists. ACT 112: Negative or not required by law. Electronically signed by: Jayce Scott M.D. 03/10/2024 6:36 PM
[2024-03-10] MEDS: FUROSEMIDE INJ 20 MG/2 ML VIAL IV SCH (23:07)
[2024-03-11 06:18] LABS: Hematocrit (blood only) 21.7 % (37.0-47.0); Hemoglobin 7.4 g/dl (12.0-16.0); Mean Corpuscular Hemoglobin 28.7 pg (25.0-34.0); Mean Corpuscular Hgb Conc 34.1 g/dL (32.0-36.0); Mean Corpuscular Volume 84.1 fL (80.0-100.0); Mean Platelet Volume 10.2 fL (9.4-12.4); Platelet Count 35 K/uL (130-400); RDW Coefficient of Variation 15.8 % (11.5-14.5); RDW Standard Deviation 47.6 fL (36.4-46.3); Red Blood Count 2.58 M/uL (4.20-5.40); White Blood Count 0.65 K/ul (4.8-10.8)
[2024-03-11 06:32] LABS: Albumin Level 2.3 gm/dl (3.4-5.0); Bilirubin Direct 2.1 mg/dl (0-0.2); Bilirubin,Total 3.6 mg/dl (0.2-1.0); Total Protein 4.5 gm/dl (6.0-8.3)
[2024-03-11 06:35] LABS: BUN Creatinine Ratio 28.6 (10-20); Calcium 7.6 mg/dl (8.6-10.3); Creatinine Clr Calc Pharmacy 48.4 ml/min; Magnesium 1.7 mg/dl (1.7-2.4); Phosphorus 3.6 mg/dl (2.5-4.9); Potassium 3.1 mmol/L (3.5-5.1)
[2024-03-11] MEDS: POSACONAZOLE PO SCH (08:32)
--- NOTE | 2024-03-11 08:50 | Cardiology Progress Note ---
Date of Service March 11, 2024 Assessment & Plan (1) Acute on chronic heart failure: (2) CMML (chronic myelomonocytic leukemia): (3) Cellulitis of leg: Plan Assessment: 73 year old female admitted due to profound anemia and thrombocytopenia in the setting of CML on current chemotherapy. Cardiology input requested due to evidence of volume overload in the setting of low blood pressures Plan: Acute on Chronic heart failure versus not cardiac volume overload in the Setting of being transfusion dependent and having low albumin levels: -No echocardiogram on file, order placed to obtain resting echocardiogram for further evaluation. -Recent hospitalization for CHF and blast crisis. -Patient is with moderate volume overload on exam. Recommend that patient receive Lasix 20mg IV Q6H. Keep Scott catheter in place. Also confirmed that patient is receiving a one time dose of Lasix 20mg IV in between units of blood. -Continue Toprol xl 50mg Daily. -Agree with primary team's plan for administering Albumin -Patient has a Cor arrhythmia and fluid status monitor in place (removable) that we will attempt to obtain recent device data from. -Follows with [facility] license of [facility]. -Sclera noted to be icteric during exam, will add on LFTs in the AM -Close monitoring of fluid status with daily weights, strict I&O and close monitoring of renal function/serum electrolytes. -Goal serum K > 4.0 and serum Mag> 2.0 -Will await echocardiogram for further recommendations. CMML: -Currently on chemotherapy. Continued management per primary team and Heme/Onc Cellulitis of lower extremities: -Vascular ultrasound negative for DVT -ID on consult -Continued IV antibiotics as ordered by ID and primary team. 03/11/2024: -Patient resting in bed with improved blood pressures. -Continues with volume overload which we will continue to cautiously diuresis in the setting of her receiving blood products -Negative fluid balance greater than one liter. Continue with daily weights and strict I&Os. -Close monitoring of renal function. -Goal serum K > 4.0 and Serum Mag > 2.0. Hypokalemic on today's labs, recommend oral potassium supplementation to avoid excess IV fluids in the setting of her heart failure. -Echocardiogram completed which demonstrates normal LVEF, no wall motion abnormality, mild dilation of the left atrium, Mild TR. -Continue with IV lasix 20mg Q6H -patient is exhibiting increased PAC's, PVC and runs of atrial tachycardia on the monitor. Further discussion revealed she has not received her beta deirdre in the past two days due to hold parameters. will adjust and this is crucial for her to have with her known history of P. A-fib. Case has been discussed with Dr. Montoya. Further recommendations regarding plan of care as per his assessment. I spent a total of 30 minutes on the date of service in preparation, delivery, documentation of the care provided to the patient excluding any time spent in the performance of separately billed services. WE[facility] Admission and Anticipated Discharge Date Admission Date: March 05, 2024 Supervising Physician Co-Signing Physician Notes Attending attestation: Case reviewed with the advanced practitioner. I have personally performed a history and physical examination on the patient. I have reviewed the advanced practitioner's documentation on the date of service referenced in note, and I agree with, and take responsibility for the plan of care. Echo performed 03/11/24, reveal normal LVEF, Doppler assessment of LV diastolic dysfunction limited due to the presence of frequent PACs but appears to be consistent with Grade II diastolic dysfunction. Unsure if fluid retention is due to cardiac dysfunction or perhaps multifactorial with noted IV fluid input for multiple transfusions, low albumin. 3 L of urine output noted. Continue IV albumin, furosemide 20 mg IV every 6 hours with Scott catheter in place and patient receiving another transfusion of packed red blood cells at time of assessment. Replace potassium orally. Metoprolol was held on 03/09 and 03/10 . Changed BP hold parameter to hold for SBP < 90 mm Hg to allow for metoprolol administration today. I spent a total of 25 minutes coordinating, documenting, and providing care for this patient excluding time spent in the performance of separately billed services or time spent by another provider. Weston Montoya, Subjective 03/11/2024: Patient seen and examined in follow up today. Feeling "fair". Denies any chest pain, pressure or palpitations. Denies any changes to her breathing. She is currently receiving another unit of PRBCs, and has also received platelets overnight. Labs, vitals, diagnostics, telemetry and documentation reviewed. Telemetry reviewed showing SR with PAC and PVC's. She has not received her beta deirdre therapy due to hold parameters. -1400cc fluid balance Review of Systems Review of Systems: All systems reviewed & are unremarkable except as noted in HPI & below Physical Exam Constitutional: + ill appearing; no acute distress Neck: normal visual inspection and trachea midline Respiratory: normal respiratory effort; no respiratory distress and no labored breathing Auscultation: lungs clear to auscultation bilaterally; no crackles, no rales, no rhonchi and no wheezes Cardiovascular: Rate/Rhythm: regular rate and regular rhythm Heart Sounds: normal S1 and normal S2 Vessels: dorsalis pedis pulses present; no JVD E xtremities: + edema (+ 2 BLE) Skin: + erythema (bilateral lower extremities ) Psychiatric: Orientation: alert and oriented x 3 Affect: + anxious affect Results & Data Vital Signs (Past 12 Hours) Vital Signs Temp Pulse Pulse Resp BP BP Pulse Ox 03/11/24 08:03 36.8 C 118 H 20 119/58 L 97 03/11/24 07:11 91 H 03/11/24 07:00 03/11/24 05:07 100 H 132/57 L 03/11/24 04:17 36.5 C 87 18 120/68 99 03/11/24 02:51 36.5 C 94 H 20 128/56 L 100 03/11/24 00:13 36.5 C 85 16 113/53 L 98 03/11/24 00:00 03/10/24 23:55 36.4 C L 83 16 105/45 L 97 03/10/24 22:58 36.6 C 80 16 137/59 L 98 03/10/24 22:55 36.6 C 80 16 137/59 L 98 03/10/24 21:58 103 H 03/10/24 21:55 36.7 C 102 H 18 125/54 L 99 03/10/24 21:38 03/10/24 21:25 36.7 C 103 H 16 123/50 L 94 03/10/24 21:10 36.9 C 102 H 16 126/49 L 98 03/10/24 21:09 36.9 C 102 H 16 126/49 L 98 03/10/24 20:49 36.9 C 110 H 16 119/61 96 Pulse Ox O2 Del Method O2 Del Method 03/11/24 08:03 Room Air 03/11/24 07:11 03/11/24 07:00 Room Air 03/11/24 05:07 10/09/24 04:17 Room Air 03/11/24 02:51 Room Air 03/11/24 00:13 03/11/24 00:00 98 Room Air 03/10/24 23:55 03/10/24 22:58 Room Air 03/10/24 22:55 03/10/24 21:58 03/10/24 21:55 03/10/24 21:38 Room Air 03/10/24 21:25 03/10/24 21:10 03/10/24 21:09 03/10/24 20:49 Laboratory Results Cardiac Enzymes 03/11/24 Range/Units 05:32 AST 25 (13-39) U/L CBC 03/10/24 03/11/24 Range/Units 17:53 05:32 WBC 0.71 L* 0.65 L* (4.8-10.8) K/ul RBC 2.78 L 2.58 L (4.20-5.40) M/uL Hgb 8.1 L 7.4 L (12.0-16.0) g/dl Hct 23.8 L 21.7 L (37.0-47.0) % Plt Count 24 L* D 35 L (130-400) K/uL Comprehensive Metabolic Panel 03/11/24 Range/Units 05:32 Sodium 142 (136-145) mmol/L Potassium 3.1 L (3.5-5.1) mmol/L Chloride 116 H (98-107) mmol/L Carbon Dioxide 19 L (21-32) mmol/L BUN 28 H (6-23) mg/dl Creatinine 0.98 (0.6-1.2) mg/dl Glucose 84 (70-99(Fasting)) mg/dl Calcium 7.6 L (8.6-10.3) mg/dl Direct Bilirubin 2.1 H (0-0.2) mg/dl AST 25 (13-39) U/L ALT 23 (7-52) U/L Alkaline Phosphatase 55 (34-104) U/L Total Protein 4.5 L (6.0-8.3) gm/dl Albumin 2.3 L (3.4-5.0) gm/dl Intake and Output 03/10/24 03/11/24 03/11/24 22:59 06:59 14:59 Intake Total 300 / 1670 443 / 1670 0 / 0 Output Total 1300 / 3127 1825 / 3127 Balance -1000 / -1457 -1382 / -1457 0 / 0 Intake: IV 100 / 100 Albumin 25% 25 gm In 100 ml @ 100 / 100 50 mls/hr IV ONE ONE Rx#: [id number] Oral 200 / 1000 150 / 1000 Intake (Blood Product) Amt 0 / 570 293 / 570 0 / 0 Packed Cells, Leukored, Irrad 0 / 0 Unit [id number] Packed Cells, Leukored, Irrad 0 / 0 Unit [id number] Pathogen Reduced Plt Pheresis 0 / 293 293 / 293 Unit [id number] Output: Urine Amount (Catheter) 1299 / 312 182 / 312 Scott/Indwelling 1299 / 312 182 / 312 Other: Weight 77 kg Weight Measurement Method Built in [facility]
[2024-03-11] MEDS: POTASSIUM CHLORIDE / WTR 10 MEQ/100 ML PLCT IV SCH (11:30)
[2024-03-11] MEDS: POTASSIUM CHLORIDE PWD 20 MEQ PACK PO SCH (11:35)
[2024-03-11] MEDS: POTASSIUM CHLORIDE 20 MEQ/15 ML UDC PO STA (12:46)
--- NOTE | 2024-03-11 14:44 | Hospitalist Progress Note ---
Date of Service March 11, 2024 Assessment & Plan (1) Pancytopenia: Plan Ms. Huizar is a 73-year-old lady with complex medical history of PAF currently not on anticoagulation, HTN, GERD, CML undergoing chemotherapy, chronic pancytopenia, rheumatoid arthritis who was recently admitted at for about a month at [facility] for blast crisis and was also seen by vehicle technician during this stay for her acute on chronic CHF who is now admitted for pancytopenia. Patient was discharged from [facility] [address] to rehab at [facility] where she was able to participate for about 2 weeks; however, op labs revealed hemoglobin 7.5 and platelets of 5 in outpatient lab draw. Patient was noted to be neutropenic, with loose stools and questionable cellulitis. Patient able to complete some treatment for CMML, however, her hospitalization was notably complicated. From a cardiac standpoint, she experienced a fib rvr, was started on daily lasix IV lasix with minimal improvement. Platelets on discharge were 30K and eliquis was discontinued. Patient with fluctuating transaminitis though to be medication related. Patient also treated for staph coag negative UTI and parotitis. Patient with "erythema nodosa lesions n left leg" per review of discharge summary on 02.26. Patient continued on Vanco and Unasyn until 02/22 after undergoing multiple tooth extractions, intensive infectious work up. Patient was to follow up with Dr. Reyes (Oncologist) for C3 AZA and C2 Justino #Acute on chronic pancytopenia 2/2 CMML and chemotherapy #Severe Neutropenia #CMML #AML Bone Marrow Biopsy 01/28 hypercellular marrow, borderline high blasts, marrow reticulin fibrosis Repeat D21 BMBX on 02/25 was performed at [facility] Patient s/p hydrea for cytoreduction, s/p c2 Aza, and completed 14 days venetoclax Double lumen PICC 02/[address] Reyes Transfuse to keep Platelets >10,000 (50K if bleeding), hgb >7.5 Transfusion this am for hgb 7.4, platelets stable at 35 Neutropenic precautions Continue posaconazole and acyclovir PPX Monitor fever curve Hold Eliquis #BLE cellulitis in severe neutropenic patient #Erythema nodosa, noted at OSH #Multiple pressure ulcers: right buttock, left buttock, coccygeal area POA Patient complained of BLE erythema and warmth for 3 to 4 days [employer] Review of Discharge Summary notes that red lesions were present during admission, described at that time as "erythema nodosum" At presentation, patient had multiple unstageable ulcers in the perineum and sacrococcygeal region. No purulent drainage noted. Ble venous doppler neg for DVT, Wound care evaled, recommended surgical evaluation -No surgical intervention at this time Hold PPX ciprofloxacin Continue with Dapto and cefepime, await final recs from ID Bl Culture - no growth so far Ble erythema and warmth was increasing as of 03/09, ATB changes made per ID recs. Today warmth and redness improving. #Volume overload, c/f Acute on chronic heart failure with preserved EF v iatrogenic/hypoalbuminemia Patient transfusion dependent at this time Cardiology following closely -Continue on IV albumin and IV lasix 20mg q 6 hours Replace electrolytes PO given concern for additional volume from IV replacement ECHO reviewed with mild LVH, EF 55-60%, grade II DDfx, pulm htn Monitor on telemetry #Paroxysmal Atrial fibrillation Continue Metoprolol, hold parameters adjusted per Cards given issues with #Mild hypernatremia: Admitting sodium of 147. Resolved. #norovirus gastroenteritis Supportive care Improving #Electrolyte abnormalities [hypokalemia and hypomagnesemia]: Likely secondary to above Encourage po intake, PO replacement as able given concern for volume overload Other chronic medical conditions: Continue with/resume home meds as when able. PAF, patient NSR, currently not on anticoagulation due to thrombocytopenia. hypertension, BP on the lower side , metoprolol dose decreased at presentation, uptitrate as able towards home dose as needed. hx GERD Rheumatoid arthritis as per records CHF: chronic, unspecified type. no records available yet for prior echo. DVT prophylaxis. SCDs Re: Thrombocytopenia DNR Patient daughter Ms. Alma Dillard, contact #[phone]. spent 45 minutes at bedside--discussed hospice with family, interested but would like to discuss among family members given patient's poor understanding of status PT/OT ANA MARÍA izquierdo to assist w/ DC plan. Admission and Anticipated Discharge Date Admission Date: March 05, 2024 Subjective Evaluated patient at bedside with daughter present Patient tearful over possible future tooth extraction and "not waking up" Discussed patients current status--patient states she knows she "has a lot going on" but feels better with the transfusions and fluid off her legs States she wishes to walk again so she "isnt a burden" Physical Exam Constitutional: tearful, chronically ill in appearance Respiratory: normal respiratory effort, lungs clear to auscultation Cardiovascular: RRR no MRG Skin: bilateral lower extremity patchy erythema, 2+ pitting edema to posterior calf Results & Data Results & Data Vital Signs (Past 12 Hours) Vital Signs Temp Pulse Pulse Resp BP BP Pulse Ox 03/11/24 12:14 36.5 C 82 18 121/65 99 03/11/24 11:28 36.6 C 81 16 119/57 L 99 03/11/24 10:28 36.6 C 89 18 120/51 L 98 03/11/24 09:58 36.8 C 90 18 111/54 L 97 03/11/24 09:43 36.7 C 94 H 18 120/72 97 03/11/24 09:27 36.7 C 85 18 116/66 99 03/11/24 08:03 36.8 C 118 H 20 119/58 L 97 03/11/24 08:00 03/11/24 07:11 91 H 03/11/24 07:00 03/11/24 05:07 100 H 132/57 L 03/11/24 04:17 36.5 C 87 18 120/68 99 03/11/24 02:51 36.5 C 94 H 20 128/56 L 100 O2 Del Method O2 Del Method 03/11/24 12:14 03/11/24 11:28 03/11/24 10:28 03/11/24 09:58 03/11/24 09:43 03/11/24 09:27 03/11/24 08:03 Room Air 03/11/24 08:00 Room Air 03/11/24 07:11 03/11/24 07:00 Room Air 03/11/24 05:07 03/11/24 04:17 Room Air 03/11/24 02:51 Room Air Laboratory Results Short CBC 03/10/24 03/11/24 Range/Units 17:53 05:32 WBC 0.71 L* 0.65 L* (4.8-10.8) K/ul Hgb 8.1 L 7.4 L (12.0-16.0) g/dl Hct 23.8 L 21.7 L (37.0-47.0) % Plt Count 24 L* D 35 L (130-400) K/uL BMP 03/11/24 05:32 Sodium 142 Potassium 3.1 L Chloride 116 H Carbon Dioxide 19 L BUN 28 H Creatinine 0.98 Glucose 84 Calcium 7.6 L Liver Function 03/11/24 Range/Units 05:32 Total Bilirubin 3.6 H (0.2-1.0) mg/dl Direct Bilirubin 2.1 H (0-0.2) mg/dl AST 25 (13-39) U/L ALT 23 (7-52) U/L Alkaline Phosphatase 55 (34-104) U/L Albumin 2.3 L (3.4-5.0) gm/dl Medications Administered Home Medications Medication Instructions Recorded Confirmed Last Taken acetaminophen 325 mg tablet 650 mg PO Q6H PRN Fever greater 01/27/24 03/05/24 Unknown (Tylenol) than 100/Pain acyclovir 400 mg tablet 400 mg PO BID 01/27/24 03/05/24 Unknown bisacodyl 10 mg rectal suppository 10 mg WI DIRECTED PRN 01/27/24 03/05/24 Unknown Constipation cholecalciferol (vitamin D3) 25 25 mcg PO QAM 01/27/24 03/05/24 Unknown mcg (1,000 unit) tablet ciprofloxacin HCl 500 mg tablet 500 mg PO BID 01/27/24 03/05/24 Unknown folic acid 1 mg tablet 1 mg PO QAM 01/27/24 03/05/24 Unknown furosemide 40 mg tablet 40 mg PO QAM 01/27/24 03/05/24 Unknown multivitamin 1 tab PO QAM 01/27/24 03/05/24 Unknown ondansetron 4 mg disintegrating 4 mg PO Q6H PRN NAUSEA/VOMITTING 01/27/24 03/05/24 Unknown tablet pantoprazole 40 mg tablet,delayed 40 mg PO DAILYBB 01/27/24 03/05/24 Unknown release posaconazole 100 mg tablet,delayed See Rx Instructions .Route .COMPLEX 01/27/24 03/05/24 Unknown release sodium phosphates 19 gram-7 118 ml WI DAILY PRN CONSTIPATION 01/27/24 03/05/24 Unknown gram/118 mL enema (Fleet Enema) Magic Mix See Rx Instructions .Route .COMPLEX 03/05/24 03/05/24 Unknown calcium carbonate 500 mg PO QDL 03/05/24 03/05/24 Unknown carbamide peroxide 6.5 % ear drops 5 drp otic (ear) BID 03/05/24 03/05/24 Unknown (Debrox) magnesium hydroxide 400 mg/5 mL 2,400 mg PO DAILY PRN Constipation 03/05/24 03/05/24 Unknown oral suspension (Milk of Magnesia) metoprolol succinate 100 mg 100 mg PO DAILY 03/05/24 03/05/24 Unknown capsule sprinkle, ext. release 24 hr polyvinyl alcohol 1.4 % eye drops 1 drp OPB Q8H Blepharitis 03/05/24 03/05/24 Unknown (Artificial Tears (polyvinyl alcohol)) potassium chloride 20 mEq/15 mL 60 meq PO Q12H 03/05/24 03/05/24 Unknown oral liquid Active Medications Generic Name Dose Route Start Last Admin Trade Name Freq PRN Reason Stop Dose Admin Acetaminophen 650 mg 03/05/24 23:54 03/10/24 20:07 Acetaminophen 325 Mg Tab PO 04/04/24 23:53 650 mg QID PRN Administration pain/fever Acyclovir 400 mg 03/06/24 09:00 03/11/24 08:31 Acyclovir 400 Mg Tab PO 04/05/24 08:59 400 mg BID LEONARDO Administration Artificial Tears 1 drops 03/06/24 04:00 03/11/24 12:47 Artificial Tears OP 04/05/24 03:59 1 drops Q8H LEONARDO Administration Carbamide Peroxide 5 drops 03/08/24 21:00 03/11/24 08:33 Carbamide Peroxide 6.5% 15 Ml Btl OT 03/12/24 20:59 5 drops BID LEONARDO Administration Cholestyramine Resin 4 gm 03/06/24 12:30 03/11/24 11:11 Cholestyramine Light 4 Gm Pkt PO 04/05/24 12:29 4 gm BID@1000,2200 LEONARDO Administration Diphenhydramine HCl 12.5 mg 03/06/24 17:46 03/07/24 01:40 Diphenhydramine 50 Mg/Ml Vial IV 04/05/24 17:45 12.5 mg Q6H PRN Administration Allergic Reaction Furosemide 20 mg 03/10/24 23:00 03/11/24 12:01 Furosemide Inj 20 Mg/2 Ml Vial IV 04/09/24 22:59 20 mg Q6H LEONARDO Administration Cefepime HCl 2,000 mg in 20 mls @ 5 mls/min 03/06/24 10:45 03/11/24 08:55 Maxipime 2000mg IV 03/13/24 10:44 5 mls/min Q12 LEONARDO Administration Daptomycin 450 mg/ Syringe 9 mls @ 4.5 mls/min 03/09/24 16:00 03/10/24 15:57 IV 03/16/24 15:59 4.5 mls/min Q24H LEONARDO Administration Protocol Lactobacillus Acidophilus 1,250 mg 03/06/24 10:30 03/11/24 08:31 Advanced Probiotic 625 Mg Capsule PO 04/05/24 10:29 1,250 mg DAILY LEONARDO Administration Loperamide HCl 2 mg 03/07/24 03:16 03/10/24 20:07 Loperamide Hcl 2 Mg Cap PO 04/06/24 03:15 2 mg UD PRN Administration Diarrhea Metoprolol Succinate 50 mg 03/08/24 09:00 03/11/24 08:31 Metoprolol Succ 50mg Ext Rel Tab PO 04/07/24 08:59 50 mg DAILY LEONARDO Administration Multivitamins 1 tab 03/06/24 09:00 03/11/24 08:31 Multivitamin Tab PO 04/05/24 08:59 1 tab QAM LEONARDO Administration Pantoprazole Sodium 40 mg 03/06/24 06:30 03/11/24 05:42 Pantoprazole 40 Mg Tab PO 04/05/24 06:29 40 mg DAILYBB LEONARDO Administration Posaconazole 3 each 03/11/24 09:00 03/11/24 08:32 Posaconazole PO 04/10/24 08:59 3 each Q24H LEONARDO Administration Psyllium Hydrophilic Mucilloid 4 gm 03/06/24 12:30 03/11/24 08:32 Psyllium Or Guar Gum Fiber 4gm Packet PO 04/05/24 12:29 4 gm QAM LEONARDO Administration
[2024-03-11] MEDS: POTASSIUM CHLORIDE 20 MEQ/15 ML UDC PO ONE ×2 (15:30→17:11)
[2024-03-11 15:53] LABS: Hematocrit (blood only) 26.2 % (37.0-47.0); Hemoglobin 8.8 g/dl (12.0-16.0)
[2024-03-12 06:31] LABS: Anion Gap 7 (3-11); BUN Creatinine Ratio 25.5 (10-20); Blood Urea Nitrogen 28 mg/dl (6-23); Calcium 7.4 mg/dl (8.6-10.3); Carbon Dioxide 21 mmol/L (21-32); Chloride 116 mmol/L (98-107); Creatinine Clr Calc Pharmacy 42.7 ml/min; Glucose 85 mg/dl (70-99(Fasting)); Potassium 3.6 mmol/L (3.5-5.1); Sodium 144 mmol/L (136-145)
[2024-03-12 06:34] LABS: Creatine Kinase < 10 U/L (26-192)
[2024-03-12 07:00] LABS: Hematocrit (blood only) 24.3 % (37.0-47.0); Hemoglobin 8.1 g/dl (12.0-16.0); Mean Corpuscular Hemoglobin 28.6 pg (25.0-34.0); Mean Corpuscular Hgb Conc 33.3 g/dL (32.0-36.0); Mean Corpuscular Volume 85.9 fL (80.0-100.0); Mean Platelet Volume 11.7 fL (9.4-12.4); Platelet Count 29 K/uL (130-400); RDW Coefficient of Variation 15.5 % (11.5-14.5); RDW Standard Deviation 47.8 fL (36.4-46.3); Red Blood Count 2.83 M/uL (4.20-5.40)
[2024-03-12 07:42] LABS: Dohle Bodies 1+; Immature Retic Fraction 15.7 % (2.3-15.9); Reticulated Hemoglobin 36.5 pg (28.2-36.6); Reticulocyte % 0.49 % (0.50-2.00); Toxic Granulation 1+
[2024-03-12 07:53] LABS: Basophils # (auto) 0.01 K/uL (0.00-0.20); Eosinophils # (auto) 0.01 K/uL (0.00-0.50); Immature Granulocytes # (auto) 0.01 K/uL (0.01-0.20); Lymphocytes # (auto) 0.39 K/uL (1.20-3.40); Monocytes # (auto) 0.06 K/uL (0.11-0.59); Neutrophils # (auto) 0.52 K/uL (1.40-6.50)
--- NOTE | 2024-03-12 08:42 | Cardiology Progress Note ---
Date of Service March 12, 2024 Assessment & Plan (1) Acute on chronic diastolic HF (heart failure): (2) CMML (chronic myelomonocytic leukemia): (3) Cellulitis of leg: Plan Assessment: 73 year old female admitted due to profound anemia and thrombocytopenia in the setting of CML on current chemotherapy. Cardiology input requested due to evidence of volume overload in the setting of low blood pressures Plan: Acute on Chronic heart failure versus not cardiac volume overload in the Setting of being transfusion dependent and having low albumin levels: -No echocardiogram on file, order placed to obtain resting echocardiogram for further evaluation. -Recent hospitalization for CHF and blast crisis. -Patient is with moderate volume overload on exam. Recommend that patient receive Lasix 20mg IV Q6H. Keep Scott catheter in place. Also confirmed that patient is receiving a one time dose of Lasix 20mg IV in between units of blood. -Continue Toprol xl 50mg Daily. -Agree with primary team's plan for administering Albumin -Patient has a Cor arrhythmia and fluid status monitor in place (removable) that we will attempt to obtain recent device data from. -Follows with [facility]. -Sclera noted to be icteric during exam, will add on LFTs in the AM -Close monitoring of fluid status with daily weights, strict I&O and close monitoring of renal function/serum electrolytes. -Goal serum K > 4.0 and serum Mag> 2.0 -Will await echocardiogram for further recommendations. CMML: -Currently on chemotherapy. Continued management per primary team and Heme/Onc Cellulitis of lower extremities: -Vascular ultrasound negative for DVT -ID on consult -Continued IV antibiotics as ordered by ID and primary team. 03/11/2024: -Patient resting in bed with improved blood pressures. -Continues with volume overload which we will continue to cautiously diuresis in the setting of her receiving blood products -Negative fluid balance greater than one liter. Continue with daily weights and strict I&Os. -Close monitoring of renal function. -Goal serum K > 4.0 and Serum Mag > 2.0. Hypokalemic on today's labs, recommend oral potassium supplementation to avoid excess IV fluids in the setting of her heart failure. -Echocardiogram completed which demonstrates normal LVEF, no wall motion abnormality, mild dilation of the left atrium, Mild TR. -Continue with IV lasix 20mg Q6H -patient is exhibiting increased PAC's, PVC and runs of atrial tachycardia on the monitor. Further discussion revealed she has not received her beta deirdre in the past two days due to hold parameters. will adjust and this is crucial for her to have with her known history of P. A-fib. 03/12/2024: -Patient is showing clinical improvement from a cardiac standpoint. She continues with swelling of the lower extremities, but is diuresing well with a - 3L fluid deficit this AM -HR remains controlled with a reduction in ectopy since restarting her beta deirdre. Continue Toprol xl 50mg Daily. -Continue Furosemide 20mg IV Q6H. Continue with Potassium Chloride Elixir 20 meq BID. Electrolytes and renal function stable. -Continue with Strict I&Os, and daily weights. -Continue on Dapto and Cefepime per primary team. ID is on consult. Case has been discussed with Dr. Montoya. Further recommendations regarding plan of care as per his assessment. I spent a total of 30 minutes on the date of service in preparation, delivery, documentation of the care provided to the patient excluding any time spent in the performance of separately billed services. [facility] Admission and Anticipated Discharge Date Admission Date: March 05, 2024 Supervising Physician Co-Signing Physician Notes Attending attestation: Case reviewed with the advanced practitioner. I have personally performed a history and physical examination on the patient. I have reviewed the advanced practitioner's documentation on the date of service referenced in note, and I agree with, and take responsibility for the plan of care. Unsure if fluid retention is due to cardiac dysfunction or perhaps multifactorial with noted IV fluid input for multiple transfusions, low albumin. 3 L of urine output noted. Received another transfusion of packed red blood cells, 1 unit, 03/12/2024. Continue furosemide 20 mg IV every 6 hours. Replace potassium orally with potassium elixir given difficulty swallowing pills. Continue metoprolol succinate 50 mg daily given history of paroxysmal atrial fibrillation,-in sinus rhythm, 03/12/2024 with frequent complex supraventricular ectopy. Not a candidate for anticoagulation given anemia I spent a total of 25 minutes coordinating, documenting, and providing care for this patient excluding time spent in the performance of separately billed services or time spent by another provider. Weston Montoya, DO Subjective 03/12/2024: Patient seen and examined in follow up today. Feeling "a lot better than yesterday". She denies any chest pain, pressure or palpitations, but further examination reveals a patchy/urticaria on bilateral forearms and her upper back. She denies pain, but endorses intense itching. Denies any mouth or throat itching, no difficulty breathing or swallowing. Labs, vitals, diagnostics, telemetry and documentation reviewed. Telemetry reviewed showing SR with PAC's rates 70-80's. H/H 8.1.3 Platelet 29 -3L fluid balance this AM Review of Systems Review of Systems: All systems reviewed & are unremarkable except as noted in HPI & below Physical Exam Constitutional: + frail appearing; no acute distress Eyes: sclerae not anicteric (icteric sclera) Neck: normal visual inspection and trachea midline Respiratory: normal respiratory effort; no respiratory distress and no labored breathing Auscultation: lungs clear to auscultation bilaterally; no crackles, no rales, no rhonchi and no wheezes Cardiovascular: Rate/Rhythm: regular rate and regular rhythm Heart Sounds: normal S1 and normal S2 Vessels: dorsalis pedis pulses present; no JVD Extremities: + edema (+ 1 BLE) Skin: + rash (patchy sites/ urticaria on bilat arms and back) and + erythema (bilateral lower extremities ) Psychiatric: Orientation: alert and oriented x 3 Affect: + anxious affect Results & Data Vital Signs (Past 12 Hours) Vital Signs Temp Pulse Pulse Resp BP Pulse Ox O2 Del Method 03/12/24 08:06 36.6 C 67 18 108/56 L 97 Room Air 03/12/24 07:00 73 03/12/24 02:33 36.7 C 81 19 111/58 L 97 Room Air 03/11/24 22:50 78 03/11/24 22:13 Room Air 03/11/24 22:06 36.5 C 79 18 116/57 L 99 Room Air Laboratory Results CBC 03/11/24 03/12/24 Range/Units 15:37 05:26 WBC 1.00 L (4.8-10.8) K/ul RBC 2.83 L (4.20-5.40) M/uL Hgb 8.8 L 8.1 L (12.0-16.0) g/dl Hct 26.2 L 24.3 L (37.0-47.0) % Plt Count 29 L* (130-400) K/uL Neut # (Auto) 0.52 L* (1.40-6.50) K/uL Lymph # (Auto) 0.39 L (1.20-3.40) K/uL Bradford # (Auto) 0.06 L (0.11-0.59) K/uL Eos # (Auto) 0.01 (0.00-0.50) K/uL Baso # (Auto) 0.01 (0.00-0.20) K/uL Comprehensive Metabolic Panel 03/12/24 Range/Units 05:26 Sodium 144 (136-145) mmol/L Potassium 3.6 (3.5-5.1) mmol/L Chloride 116 H (98-107) mmol/L Carbon Dioxide 21 (21-32) mmol/L BUN 28 H (6-23) mg/dl Creatinine 1.10 (0.6-1.2) mg/dl Glucose 85 (70-99(Fasting)) mg/dl Calcium 7.4 L (8.6-10.3) mg/dl Intake and Output 03/11/24 03/12/24 03/12/24 22:59 06:59 14:59 Intake Total 500 / 990 Output Total 2002 / 4028 825 / 825 Balance -2002 - / -3037 - / -825 Intake: Oral 500 / 680 Output: Urine Amount (Catheter) 1999 / 4025 825 / 825 Scott/Indwelling 1999 600 / 4025 825 / 825 # Bowel Movements Other: Weight 77 kg 75.5 kg Weight Measurement Method Built in [facility]
[2024-03-12] MEDS: POTASSIUM CHLORIDE 20 MEQ/15 ML UDC PO STA (09:14)
[2024-03-12] MEDS: CALCIUM 600MG + VIT D 400 IU TAB PO SCH (09:18)
[2024-03-12] MEDS: POTASSIUM CHLORIDE 20 MEQ/15 ML UDC PO SCH (09:50)
--- NOTE | 2024-03-12 12:14 | Hospitalist Progress Note ---
Date of Service March 12, 2024 Assessment & Plan (1) Pancytopenia: Plan Ms. Huizar is a 73-year-old lady with complex medical history of PAF currently not on anticoagulation, HTN, GERD, CML undergoing chemotherapy, chronic pancytopenia, rheumatoid arthritis who was recently admitted at for about a month at [facility] [place] for blast crisis and was also seen by commercial carpenter during this stay for her acute on chronic CHF who is now admitted for pancytopenia. Patient was discharged from [facility] to rehab at [facility] where she was able to participate for about 2 weeks; however, op labs revealed hemoglobin 7.5 and platelets of 5 in outpatient lab draw. Patient was noted to be neutropenic, with loose stools and questionable cellulitis. Patient able to complete some treatment for CMML, however, her hospitalization was notably complicated. From a cardiac standpoint, she experienced a fib rvr, was started on daily lasix IV lasix with minimal improvement. Platelets on discharge were 30K and eliquis was discontinued. Patient with fluctuating transaminitis though to be medication related. Patient also treated for staph coag negative UTI and parotitis. Patient with "erythema nodosa lesions n left leg" per review of discharge summary on 02.26. Patient continued on Vanco and Unasyn until 02/22 after undergoing multiple tooth extractions, intensive infectious work up. Patient was to follow up with Dr. Reyes (Oncologist) for C3 AZA and C2 Justino Patient remains on IV lasix q6 with notable diuresis. #Acute on chronic pancytopenia 2/2 CMML and chemotherapy #Severe Neutropenia #CMML #AML Bone Marrow Biopsy 01/28 hypercellular marrow, borderline high blasts, marrow reticulin fibrosis Repeat D21 BMBX on 02/25 was performed at [facility] Patient s/p hydrea for cytoreduction, s/p c2 Aza, and completed 14 days venetoclax Double lumen PICC 02/[address] 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 No purulent drainage noted. Ble venous doppler neg for DVT, Wound care evaled, recommended surgical evaluation -No surgical intervention at this time Hold PPX ciprofloxacin Continue with Dapto and cefepime, await final recs from ID -Currently day 4 of IV abx with above MRSA coverage Bl Culture - no growth so far Improving day by day, no change to abx course #Volume overload, c/f Acute on chronic heart failure with preserved EF v iatrogenic/hypoalbuminemia Patient transfusion dependent at this time Cardiology following closely -Continue on IV albumin and IV lasix 20mg q 6 hours Replace electrolytes PO given concern for additional volume from IV replacement ECHO reviewed with mild LVH, EF 55-60%, grade II DDfx, pulm htn Monitor on telemetry #Paroxysmal Atrial fibrillation Continue Metoprolol, hold parameters adjusted per Cards given issues with #Mild hypernatremia: Admitting sodium of 147. Resolved. #norovirus gastroenteritis Supportive care Improving #Electrolyte abnormalities [hypokalemia and hypomagnesemia]: Likely secondary to above Encourage po intake, PO replacement as able given concern for volume overload Other chronic medical conditions: Continue with/resume home meds as when able. PAF, patient NSR, currently not on anticoagulation due to thrombocytopenia. hypertension, BP on the lower side , metoprolol dose decreased at presentation, uptitrate as able towards home dose as needed. hx GERD Rheumatoid arthritis as per records CHF: chronic, unspecified type. no records available yet for prior echo. DVT prophylaxis. SCDs Re: Thrombocytopenia DNR Patient daughter Ms. Alma Dillard, contact #[phone]. PT/OT ANA MARÍA izquierdo to assist w/ DC plan. Admission and Anticipated Discharge Date Admission Date: March 05, 2024 Subjective Patient evaluated at bedside with son present Patient reports feeling ok, if not slightly better than day before States she feels more appetite returning and more energy this morning Denies chest pain, recurrent palpitations Elated to report she feels the swelling has improved in her legs overall Physical Exam Constitutional: WD/WN, vitals as above chronically ill appearing woman, but in better spirits today Respiratory: normal respiratory effort, lungs clear to auscultation Cardiovascular: RRR, no mrg Musculoskeletal: 1-2+ pitting edema in BLE, with more not able edema in gravity dependent posterior thights Erythema on ble seems improved Skin: areas of blotchy erythematous patches on arms, improved with benadryl Results & Data Results & Data Vital Signs (Past 12 Hours) Vital Signs Temp Pulse Pulse Resp BP Pulse Ox O2 Del Method 03/12/24 10:49 36.5 C 72 17 112/72 100 Room Air 03/12/24 08:06 36.6 C 67 18 108/56 L 97 Room Air 03/12/24 07:00 73 03/12/24 02:33 36.7 C 81 19 111/58 L 97 Room Air Laboratory Results Short CBC 03/11/24 03/12/24 Range/Units 15:37 05:26 WBC 1.00 L (4.8-10.8) K/ul Hgb 8.8 L 8.1 L (12.0-16.0) g/dl Hct 26.2 L 24.3 L (37.0-47.0) % Plt Count 29 L* (130-400) K/uL [facility] 03/12/24 05:26 Sodium 144 Potassium 3.6 Chloride 116 H Carbon Dioxide 21 BUN 28 H Creatinine 1.10 Glucose 85 Calcium 7.4 L Cardiac Enzymes 03/12/24 Range/Units 05:26 Total Creatine Kinase < 10 L (26-192) U/L Medications Administered Home Medications Medication Instructions Recorded Confirmed Last Taken acetaminophen 325 mg tablet 650 mg PO Q6H PRN Fever greater 01/27/24 03/05/24 Unknown (Tylenol) than 100/Pain acyclovir 400 mg tablet 400 mg PO BID 01/27/24 03/05/24 Unknown bisacodyl 10 mg rectal suppository 10 mg NJ DIRECTED PRN 01/27/24 03/05/24 Unknown Constipation cholecalciferol (vitamin D3) 25 25 mcg PO QAM 01/27/24 03/05/24 Unknown mcg (1,000 unit) tablet ciprofloxacin HCl 500 mg tablet 500 mg PO BID 01/27/24 03/05/24 Unknown folic acid 1 mg tablet 1 mg PO QAM 01/27/24 03/05/24 Unknown furosemide 40 mg tablet 40 mg PO QAM 01/27/24 03/05/24 Unknown multivitamin 1 tab PO QAM 01/27/24 03/05/24 Unknown ondansetron 4 mg disintegrating 4 mg PO Q6H PRN NAUSEA/VOMITTING 01/27/24 03/05/24 Unknown tablet pantoprazole 40 mg tablet,delayed 40 mg PO DAILYBB 01/27/24 03/05/24 Unknown release posaconazole 100 mg tablet,delayed See Rx Instructions .Route .COMPLEX 01/27/24 03/05/24 Unknown release sodium phosphates 19 gram-7 118 ml NJ DAILY PRN CONSTIPATION 01/27/24 03/05/24 Unknown gram/118 mL enema (Fleet Enema) Magic Mix See Rx Instructions .Route .COMPLEX 03/05/24 03/05/24 Unknown calcium carbonate 500 mg PO QDL 03/05/24 03/05/24 Unknown carbamide peroxide 6.5 % ear drops 5 drp otic (ear) BID 03/05/24 03/05/24 Unknown (Debrox) magnesium hydroxide 400 mg/5 mL 2,400 mg PO DAILY PRN Constipation 03/05/24 03/05/24 Unknown oral suspension (Milk of Magnesia) metoprolol succinate 100 mg 100 mg PO DAILY 03/05/24 03/05/24 Unknown capsule sprinkle, ext. release 24 hr polyvinyl alcohol 1.4 % eye drops 1 drp OPB Q8H Blepharitis 03/05/24 03/05/24 Unknown (Artificial Tears (polyvinyl alcohol)) potassium chloride 20 mEq/15 mL 60 meq PO Q12H 03/05/24 03/05/24 Unknown oral liquid Active Medications Generic Name Dose Route Start Last Admin Trade Name Freq PRN Reason Stop Dose Admin Acetaminophen 650 mg 03/05/24 23:54 03/10/24 20:07 Acetaminophen 325 Mg Tab PO 04/04/24 23:53 650 mg QID PRN Administration pain/fever Acyclovir 400 mg 03/06/24 09:00 03/12/24 09:17 Acyclovir 400 Mg Tab PO 04/05/24 08:59 400 mg BID LEONARDO Administration Artificial Tears 1 drops 03/06/24 04:00 03/12/24 04:07 Artificial Tears OP 04/05/24 03:59 1 drops Q8H LEONARDO Administration Calcium/Vitamin D 1 tab 03/12/24 09:00 03/12/24 09:18 Calcium 600mg + Vit D 400 Iu Tab PO 04/11/24 08:59 1 tab BID LEONARDO Administration Carbamide Peroxide 5 drops 03/08/24 21:00 03/12/24 09:19 Carbamide Peroxide 6.5% 15 Ml Btl OT 03/12/24 20:59 5 drops BID LEONARDO Administration Cholestyramine Resin 4 gm 03/06/24 12:30 03/12/24 11:00 Cholestyramine Light 4 Gm Pkt PO 04/05/24 12:29 4 gm BID@1000,2200 LEONARDO Administration Diphenhydramine HCl 12.5 mg 03/06/24 17:46 03/12/24 09:50 Diphenhydramine 50 Mg/Ml Vial IV 04/05/24 17:45 12.5 mg Q6H PRN Administration Allergic Reaction Furosemide 20 mg 03/10/24 23:00 03/12/24 10:56 Furosemide Inj 20 Mg/2 Ml Vial IV 04/09/24 22:59 20 mg Q6H LEONARDO Administration Cefepime HCl 2,000 mg in 20 mls @ 5 mls/min 03/06/24 10:45 03/12/24 09:50 Maxipime 2000mg IV 03/13/24 10:44 5 mls/min Q12 LEONARDO Administration Daptomycin 450 mg/ Syringe 9 mls @ 4.5 mls/min 03/09/24 16:00 03/11/24 15:29 IV 03/16/24 15:59 4.5 mls/min Q24H LEONARDO Administration Protocol Lactobacillus Acidophilus 1,250 mg 03/06/24 10:30 03/12/24 09:17 Advanced Probiotic 625 Mg Capsule PO 04/05/24 10:29 1,250 mg DAILY LEONARDO Administration Loperamide HCl 2 mg 03/07/24 03:16 03/11/24 20:40 Loperamide Hcl 2 Mg Cap PO 04/06/24 03:15 2 mg UD PRN Administration Diarrhea Metoprolol Succinate 50 mg 03/08/24 09:00 03/12/24 09:17 Metoprolol Succ 50mg Ext Rel Tab PO 04/07/24 08:59 50 mg DAILY LEONARDO Administration Multivitamins 1 tab 03/06/24 09:00 03/12/24 09:18 Multivitamin Tab PO 04/05/24 08:59 1 tab QAM LEONARDO Administration Pantoprazole Sodium 40 mg 03/06/24 06:30 03/12/24 05:37 Pantoprazole 40 Mg Tab PO 04/05/24 06:29 40 mg DAILYBB LEONARDO Administration Posaconazole 3 each 03/11/24 09:00 03/12/24 09:19 Posaconazole PO 04/10/24 08:59 3 each Q24H LEONARDO Administration Potassium Chloride 20 meq 03/12/24 09:00 03/12/24 09:50 Potassium Chloride 20 Meq/15 Ml Udc PO 04/11/24 08:59 20 meq BID LEONARDO Administration Psyllium Hydrophilic Mucilloid 4 gm 03/06/24 12:30 03/12/24 09:15 Psyllium Or Guar Gum Fiber 4gm Packet PO 04/05/24 12:29 4 gm QAM LEONARDO Administration
[2024-03-13 06:23] LABS: Hematocrit (blood only) 24.7 % (37.0-47.0); Hemoglobin 8.3 g/dl (12.0-16.0); Mean Corpuscular Hemoglobin 28.5 pg (25.0-34.0); Mean Corpuscular Hgb Conc 33.6 g/dL (32.0-36.0); Mean Corpuscular Volume 84.9 fL (80.0-100.0); Mean Platelet Volume 12.2 fL (9.4-12.4); Platelet Count 27 K/uL (130-400); RDW Coefficient of Variation 15.5 % (11.5-14.5); RDW Standard Deviation 47.2 fL (36.4-46.3); Red Blood Count 2.91 M/uL (4.20-5.40); White Blood Count 1.11 K/ul (4.8-10.8)
[2024-03-13 06:38] LABS: BUN Creatinine Ratio 25.2 (10-20); Calcium 7.4 mg/dl (8.6-10.3); Creatinine Clr Calc Pharmacy 40.8 ml/min; Magnesium 1.3 mg/dl (1.7-2.4); Phosphorus 3.4 mg/dl (2.5-4.9); Potassium 2.8 mmol/L (3.5-5.1)
--- NOTE | 2024-03-13 08:58 | Cardiology Progress Note ---
Date of Service March 13, 2024 Assessment & Plan (1) Acute on chronic diastolic HF (heart failure): (2) CMML (chronic myelomonocytic leukemia): (3) Cellulitis of leg: Plan Assessment: 73 year old female admitted due to profound anemia and thrombocytopenia in the setting of CML on current chemotherapy. Cardiology input requested due to evidence of volume overload in the setting of low blood pressures Plan: Acute on Chronic heart failure versus not cardiac volume overload in the Setting of being transfusion dependent and having low albumin levels: -No echocardiogram on file, order placed to obtain resting echocardiogram for further evaluation. -Recent hospitalization for CHF and blast crisis. -Patient is with moderate volume overload on exam. Recommend that patient receive Lasix 20mg IV Q6H. Keep Scott catheter in place. Also confirmed that patient is receiving a one time dose of Lasix 20mg IV in between units of blood. -Continue Toprol xl 50mg Daily. -Agree with primary team's plan for administering Albumin -Patient has a Cor arrhythmia and fluid status monitor in place (removable) that we will attempt to obtain recent device data from. -Follows with [facility]. -Sclera noted to be icteric during exam, will add on LFTs in the AM -Close monitoring of fluid status with daily weights, strict I&O and close monitoring of renal function/serum electrolytes. -Goal serum K > 4.0 and serum Mag> 2.0 -Will await echocardiogram for further recommendations. CMML: -Currently on chemotherapy. Continued management per primary team and Heme/Onc Cellulitis of lower extremities: -Vascular ultrasound negative for DVT -ID on consult -Continued IV antibiotics as ordered by ID and primary team. 03/11/2024: -Patient resting in bed with improved blood pressures. -Continues with volume overload which we will continue to cautiously diuresis in the setting of her receiving blood products -Negative fluid balance greater than one liter. Continue with daily weights and strict I&Os. -Close monitoring of renal function. -Goal serum K > 4.0 and Serum Mag > 2.0. Hypokalemic on today's labs, recommend oral potassium supplementation to avoid excess IV fluids in the setting of her heart failure. -Echocardiogram completed which demonstrates normal LVEF, no wall motion abnormality, mild dilation of the left atrium, Mild TR. -Continue with IV lasix 20mg Q6H -patient is exhibiting increased PAC's, PVC and runs of atrial tachycardia on the monitor. Further discussion revealed she has not received her beta deirdre in the past two days due to hold parameters. will adjust and this is crucial for her to have with her known history of P. A-fib. 03/12/2024: -Patient is showing clinical improvement from a cardiac standpoint. She continues with swelling of the lower extremities, but is diuresing well with a - 3L fluid deficit this AM -HR remains controlled with a reduction in ectopy since restarting her beta deirdre. Continue Toprol xl 50mg Daily. -Continue Furosemide 20mg IV Q6H. Continue with Potassium Chloride Elixir 20 meq BID. Electrolytes and renal function stable. -Continue with Strict I&Os, and daily weights. -Continue on Dapto and Cefepime per primary team. ID is on consult. 03/13/2024: -Patient is showing clinical improvement from a fluid perspective. -Continue to diurese well and renal function is stable. Continue Furosemide 20mg IV Q6H for gentle diuresis in the setting of low blood pressures. -Low serum potassium and magnesium remain a concern. Currently being supplemented with oral replacement to avoid excess fluid volume through IV. -Started Spironolactone 12.5mg Daily for both diuresis, as well as potassium sparing effects. -BP low normal. -Continue Metoprolol succinate as per current regimen. -Continue antibiotic regimen per primary team with Dapto -Continue with Strict I&Os and daily weights, close monitoring of labs with goal serum K > 4.0 and Serum Mag > 2.0 Case has been discussed with Dr. Montoya. Further recommendations regarding plan of care as per his assessment. I spent a total of 30 minutes on the date of service in preparation, delivery, documentation of the care provided to the patient excluding any time spent in the performance of separately billed services. [facility] Admission and Anticipated Discharge Date Admission Date: March 05, 2024 Supervising Physician Co-Signing Physician Notes Attending attestation: Case reviewed with the advanced practitioner. I have personally performed a history and physical examination on the patient. I have reviewed the advanced practitioner's documentation on the date of service referenced in note, and I agree with, and take responsibility for the plan of care. Worsening diarrhea last night and today. Per my discussion with patient's nurse, it is more watery. Stool + for Matthew on 03/06/24. Hypokalemia noted this am. Legs a little less edematous. --Hold IV furosemide for today. --If renal function , electrolytes, and BP allow, resume furosemide tomorrow. --Trial of spironolactone 12.5 mg daily -however low BP may prevent use of this agent. I spent a total of 20 minutes coordinating, documenting, and providing care for this patient excluding time spent in the performance of separately billed services or time spent by another provider. Weston Montoya DO Subjective 03/13/2024: Patient seen and examined in follow up today. Feeling better. Denies any cardiac complaints. Leg swelling continues to decrease. No chest pain, pressure or palpitations. No new breathing concerns. reports "easier breathing" Labs, vitals, diagnostics, telemetry and documentation reviewed. Telemetry reviewed showing SR/Sinus arrhythmia with PVC and PAC's 70-90. no acute events overnight. H/H 8.3/24.7 Mag 1.3 K 2.8 Both are being actively supplemented. -2811 fluid balance this AM. Scott cath in place Review of Systems Review of Systems: All systems reviewed & are unremarkable except as noted in HPI & below Physical Exam Constitutional: + ill appearing and + frail appearing; n o acute distress Eyes: sclerae not anicteric (icteric sclera) Neck: normal visual inspection and trachea midline Respiratory: normal respiratory effort; no respiratory distress and no labored breathing Auscultation: lungs clear to auscultation bilaterally; no crackles, no rales, no rhonchi and no wheezes Cardiovascular: Rate/Rhythm: regular rate and regular rhythm Heart Sounds: normal S1 and normal S2 Vessels: dorsalis pedis pulses present; no JVD Extremities: + edema (+ 1 BLE) Skin: + rash (patchy sites/ urticaria on bilat arms and back) and + erythema (bilateral lower extremities ) Psychiatric: Orientation: alert and oriented x 3 Affect: + anxious affect Results & Data Vital Signs (Past 12 Hours) Vital Signs Temp Pulse Pulse Resp BP Pulse Ox O2 Del Method 03/13/24 07:49 36.3 C L 115 H 17 115/58 L 96 Room Air 03/13/24 07:00 80 10/11/24 03:23 36.8 C 81 17 107/52 L 97 Room Air 03/13/24 00:00 78 03/12/24 22:36 36.7 C 82 17 97/58 L 98 Room Air Laboratory Results CBC 03/13/24 Range/Units 05:27 WBC 1.11 L (4.8-10.8) K/ul RBC 2.91 L (4.20-5.40) M/uL Hgb 8.3 L (12.0-16.0) g/dl Hct 24.7 L (37.0-47.0) % Plt Count 27 L* (130-400) K/uL Comprehensive Metabolic Panel 03/13/24 Range/Units 05:27 Sodium 143 (136-145) mmol/L Potassium 2.8 L D (3.5-5.1) mmol/L Chloride 113 H (98-107) mmol/L Carbon Dioxide 23 (21-32) mmol/L BUN 29 H (6-23) mg/dl Creatinine 1.15 (0.6-1.2) mg/dl Glucose 82 (70-99(Fasting)) mg/dl Calcium 7.4 L (8.6-10.3) mg/dl Intake and Output 03/12/24 03/13/24 03/13/24 22:59 06:59 14:59 Intake Total 120 / 790 300 / 790 Output Total 115 / 44 950 / 4426 1076 / 1076 Balance -1031 / -3636 -650 / -3636 -1076 / -1076 Intake: Oral 120 / 790 300 / 790 Output: Urine Amount (Catheter) 115 / 44 950 / 4425 1075 / 1075 Scott/Indwelling 115 / 44 950 / 4425 1075 / 1075 # Bowel Movements Other: Weight 75.4 kg Weight Measurement Method Built in [facility]
[2024-03-13] MEDS: POTASSIUM CHLORIDE 20 MEQ/15 ML UDC PO SCH (09:09)
[2024-03-13] MEDS: MAGNESIUM OXIDE 400 MG TAB PO SCH (09:09)
[2024-03-13] MEDS: SPIRONOLACTONE 12.5 MG TAB PO SCH (09:09)
--- NOTE | 2024-03-13 16:34 | Hospitalist Progress Note ---
Date of Service March 13, 2024 Assessment & Plan (1) Pancytopenia: Plan Ms. Huizar is a 73-year-old lady with complex medical history of PAF currently not on anticoagulation, HTN, GERD, CML undergoing chemotherapy, chronic pancytopenia, rheumatoid arthritis who was recently admitted at for about a month at [facility] for blast crisis and was also seen by licensed reactor operator during this stay for her acute on chronic CHF who is now admitted for pancytopenia. Patient was discharged from [facility] to rehab at [facility] where she was able to participate for about 2 weeks; however, op labs revealed hemoglobin 7.5 and platelets of 5 in outpatient lab draw. Patient was noted to be neutropenic, with loose stools and questionable cellulitis. Patient able to complete some treatment for CMML, however, her hospitalization was notably complicated. From a cardiac standpoint, she experienced a fib rvr, was started on daily lasix IV lasix with minimal improvement. Platelets on discharge were 30K and eliquis was discontinued. Patient with fluctuating transaminitis though to be medication related. Patient also treated for staph coag negative UTI and parotitis. Patient with "erythema nodosa lesions n left leg" per review of discharge summary on 02.26. Patient continued on Vanco and Unasyn until 02/22 after undergoing multiple tooth extractions, intensive infectious work up. Patient was to follow up with Dr. Reyes (Oncologist) for C3 AZA and C2 Justino Patient remains on IV lasix q6 with notable diuresis. 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 No purulent drainage noted. Ble venous doppler neg for DVT, Wound care evaled, recommended surgical evaluation -No surgical intervention at this time Hold PPX ciprofloxacin Continue with Dapto and cefepime, await final recs from ID -Currently day 5 of IV abx with above MRSA coverage Bl Culture - no growth so far Improving day by day, no change to abx course #Volume overload, c/f Acute on chronic heart failure with preserved EF v iatrogenic/hypoalbuminemia Patient transfusion dependent at this time Cardiology following closely -Holding on IV albumin and IV lasix 20mg q 6 due to hypotension at this time -Start spironolactone 12.5mg to spare potassium Replace electrolytes PO given concern for additional volume from IV replacement ECHO reviewed with mild LVH, EF 55-60%, grade II DDfx, pulm htn Monitor on telemetry #Paroxysmal Atrial fibrillation Continue Metoprolol, hold parameters adjusted per Cards given issues with #Mild hypernatremia: Admitting sodium of 147. Resolved. #Diarrhea #norovirus gastroenteritis Supportive care continue fiber D/c mag oxide given diarrhea today Monitor stool output, consider rectal tube if ongoing 2/2 wounds on buttock C diff ordered #Electrolyte abnormalities [hypokalemia and hypomagnesemia]: Likely secondary to above Encourage po intake, PO replacement as able given concern for volume overload Other chronic medical conditions: Continue with/resume home meds as when able. PAF, patient NSR, currently not on anticoagulation due to thrombocytopenia. hypertension, BP on the lower side , metoprolol dose decreased at presentation, uptitrate as able towards home dose as needed. hx GERD Rheumatoid arthritis as per records CHF: chronic, unspecified type. no records available yet for prior echo. DVT prophylaxis. SCDs Re: Thrombocytopenia DNR Patient daughter Ms. Alma Dillard, contact #[phone]. PT/OT ANA MARÍA izquierdo to assist w/ DC plan. Admission and Anticipated Discharge Date Admission Date: March 05, 2024 Subjective FREDDIEO Reported feeling tired this morning, but excited over legs improving No new concerns later in afternoon report 5 BM this afternoon Physical Exam Constitutional: ill appearing woman Respiratory: normal respiratory effort, lungs clear to auscultation Cardiovascular: RRR, no murmur, no edema Results & Data Results & Data Vital Signs (Past 12 Hours) Vital Signs Temp Pulse Pulse Resp BP Pulse Ox O2 Del Method 03/13/24 15:06 69 03/13/24 11:13 36.4 C L 68 18 98/59 L 99 Room Air 03/13/24 07:49 36.3 C L 115 H 17 115/58 L 96 Room Air 03/13/24 07:00 80 Laboratory Results Short CBC 03/13/24 Range/Units 05:27 WBC 1.11 L (4.8-10.8) K/ul Hgb 8.3 L (12.0-16.0) g/dl Hct 24.7 L (37.0-47.0) % Plt Count 27 L* (130-400) K/uL [facility] 03/13/24 05:27 Sodium 143 Potassium 2.8 L D Chloride 113 H Carbon Dioxide 23 BUN 29 H Creatinine 1.15 Glucose 82 Calcium 7.4 L Medications Administered Home Medications Medication Instructions Recorded Confirmed Last Taken acetaminophen 325 mg tablet 650 mg PO Q6H PRN Fever greater 01/27/24 03/05/24 Unknown (Tylenol) than 100/Pain acyclovir 400 mg tablet 400 mg PO BID 01/27/24 03/05/24 Unknown bisacodyl 10 mg rectal suppository 10 mg WA DIRECTED PRN 01/27/24 03/05/24 Unknown Constipation cholecalciferol (vitamin D3) 25 25 mcg PO QAM 01/27/24 03/05/24 Unknown mcg (1,000 unit) tablet ciprofloxacin HCl 500 mg tablet 500 mg PO BID 01/27/24 03/05/24 Unknown folic acid 1 mg tablet 1 mg PO QAM 01/27/24 03/05/24 Unknown furosemide 40 mg tablet 40 mg PO QAM 01/27/24 03/05/24 Unknown multivitamin 1 tab PO QAM 01/27/24 03/05/24 Unknown ondansetron 4 mg disintegrating 4 mg PO Q6H PRN NAUSEA/VOMITTING 01/27/24 03/05/24 Unknown tablet pantoprazole 40 mg tablet,delayed 40 mg PO DAILYBB 01/27/24 03/05/24 Unknown release posaconazole 100 mg tablet,delayed See Rx Instructions .Route .COMPLEX 01/27/24 03/05/24 Unknown release sodium phosphates 19 gram-7 118 ml WA DAILY PRN CONSTIPATION 01/27/24 03/05/24 Unknown gram/118 mL enema (Fleet Enema) Magic Mix See Rx Instructions .Route .COMPLEX 03/05/24 03/05/24 Unknown calcium carbonate 500 mg PO QDL 03/05/24 03/05/24 Unknown carbamide peroxide 6.5 % ear drops 5 drp otic (ear) BID 03/05/24 03/05/24 Unknown (Debrox) magnesium hydroxide 400 mg/5 mL 2,400 mg PO DAILY PRN Constipation 03/05/24 03/05/24 Unknown oral suspension (Milk of Magnesia) metoprolol succinate 100 mg 100 mg PO DAILY 03/05/24 03/05/24 Unknown capsule sprinkle, ext. release 24 hr polyvinyl alcohol 1.4 % eye drops 1 drp OPB Q8H Blepharitis 03/05/24 03/05/24 Unknown (Artificial Tears (polyvinyl alcohol)) potassium chloride 20 mEq/15 mL 60 meq PO Q12H 03/05/24 03/05/24 Unknown oral liquid Active Medications Generic Name Dose Route Start Last Admin Trade Name Freq PRN Reason Stop Dose Admin Acetaminophen 650 mg 03/05/24 23:54 03/10/24 20:07 Acetaminophen 325 Mg Tab PO 04/04/24 23:53 650 mg QID PRN Administration pain/fever Acyclovir 400 mg 03/06/24 09:00 03/13/24 08:45 Acyclovir 400 Mg Tab PO 04/05/24 08:59 400 mg BID LEONARDO Administration Artificial Tears 1 drops 03/06/24 04:00 03/13/24 14:29 Artificial Tears OP 04/05/24 03:59 1 drops Q8H LEONARDO Administration Calcium/Vitamin D 1 tab 03/12/24 09:00 03/13/24 08:45 Calcium 600mg + Vit D 400 Iu Tab PO 04/11/24 08:59 1 tab BID LEONARDO Administration Cholestyramine Resin 4 gm 03/06/24 12:30 03/13/24 11:05 Cholestyramine Light 4 Gm Pkt PO 04/05/24 12:29 4 gm BID@1000,2200 LEONARDO Administration Diphenhydramine HCl 12.5 mg 03/06/24 17:46 03/12/24 09:50 Diphenhydramine 50 Mg/Ml Vial IV 04/05/24 17:45 12.5 mg Q6H PRN Administration Allergic Reaction Furosemide 20 mg 03/10/24 23:00 03/13/24 11:05 Furosemide Inj 20 Mg/2 Ml Vial IV 04/09/24 22:59 20 mg Q6H LEONARDO Administration Daptomycin 450 mg/ Syringe 9 mls @ 4.5 mls/min 03/09/24 16:00 03/12/24 16:03 IV 03/16/24 15:59 4.5 mls/min Q24H LEONARDO Administration Protocol Lactobacillus Acidophilus 1,250 mg 03/06/24 10:30 03/13/24 08:45 Advanced Probiotic 625 Mg Capsule PO 04/05/24 10:29 1,250 mg DAILY LEONARDO Administration Loperamide HCl 2 mg 03/07/24 03:16 03/13/24 14:28 Loperamide Hcl 2 Mg Cap PO 04/06/24 03:15 2 mg UD PRN Administration Diarrhea Magnesium Oxide 400 mg 03/13/24 09:00 03/13/24 09:09 Magnesium Oxide 400 Mg Tab PO 04/12/24 08:59 400 mg BID LEONARDO Administration Metoprolol Succinate 50 mg 03/08/24 09:00 03/13/24 08:45 Metoprolol Succ 50mg Ext Rel Tab PO 04/07/24 08:59 50 mg DAILY LEONARDO Administration Multivitamins 1 tab 03/06/24 09:00 03/13/24 08:45 Multivitamin Tab PO 04/05/24 08:59 1 tab QAM LEONARDO Administration Pantoprazole Sodium 40 mg 03/06/24 06:30 03/13/24 05:44 Pantoprazole 40 Mg Tab PO 04/05/24 06:29 40 mg DAILYBB LEONARDO Administration Posaconazole 3 each 03/11/24 09:00 03/13/24 08:45 Posaconazole PO 04/10/24 08:59 3 each Q24H LEONARDO Administration Potassium Chloride 40 meq 03/13/24 08:00 03/13/24 14:28 Potassium Chloride 20 Meq/15 Ml Udc PO 04/12/24 07:59 40 meq TID LEONARDO Administration Spironolactone 12.5 mg 03/13/24 09:00 03/13/24 09:09 Spironolactone 12.5 Mg Tab PO 04/12/24 08:59 12.5 mg DAILY LEONARDO Administration
[2024-03-13] MEDS: PSYLLIUM or GUAR GUM FIBER 4GM PACKET PO SCH (20:39)
[2024-03-13] MEDS: MAGNESIUM CHLORIDE W/CALCIUM 64MG DELAYED REL TAB PO SCH (20:41)
[2024-03-14 06:01] LABS: Hematocrit (blood only) 23.8 % (37.0-47.0); Hemoglobin 7.9 g/dl (12.0-16.0); Mean Corpuscular Hemoglobin 29.2 pg (25.0-34.0); Mean Corpuscular Hgb Conc 33.2 g/dL (32.0-36.0); Mean Corpuscular Volume 87.8 fL (80.0-100.0); Mean Platelet Volume 12.4 fL (9.4-12.4); Platelet Count 29 K/uL (130-400); RDW Coefficient of Variation 15.6 % (11.5-14.5); Red Blood Count 2.71 M/uL (4.20-5.40); White Blood Count 1.17 K/ul (4.8-10.8)
[2024-03-14 06:32] LABS: BUN Creatinine Ratio 22.5 (10-20); Calcium 7.6 mg/dl (8.6-10.3); Creatinine Clr Calc Pharmacy 36.4 ml/min; Magnesium 1.3 mg/dl (1.7-2.4); Phosphorus 3.1 mg/dl (2.5-4.9); Potassium 4.3 mmol/L (3.5-5.1)
--- NOTE | 2024-03-14 07:52 | Communication Note ---
Date of Service: March 14, 2024 Vital signs and laboratory studies reviewed. Potassium level improved, normal. Creatinine has trended up slightly. Given her worsening diarrhea yesterday and creatinine that has trended up. Consider continuation of holding furosemide with plans to potentially resume tomorrow. Given degree of edema, resuming IV diuretic therapy likely best course if renal function stable. Patient frail, but proceed with caution. Vital Signs Temp 36.6 C 03/14/24 07:37 Pulse 64 03/14/24 07:37 Resp 18 03/14/24 07:37 BP 107/47 L 03/14/24 07:37 Pulse Ox 97 03/14/24 07:37 O2 Del Method Room Air 03/14/24 07:37 CBC 03/14/24 Range/Units 05:38 WBC 1.17 L (4.8-10.8) K/ul RBC 2.71 L (4.20-5.40) M/uL Hgb 7.9 L (12.0-16.0) g/dl Hct 23.8 L (37.0-47.0) % Plt Count 29 L* (130-400) K/uL Comprehensive Metabolic Panel 03/14/24 Range/Units 05:38 Sodium 145 (136-145) mmol/L Potassium 4.3 D (3.5-5.1) mmol/L Chloride 115 H (98-107) mmol/L Carbon Dioxide 25 (21-32) mmol/L BUN 29 H (6-23) mg/dl Creatinine 1.29 H (0.6-1.2) mg/dl Glucose 92 (70-99(Fasting)) mg/dl Calcium 7.6 L (8.6-10.3) mg/dl Intake and Output 03/13/24 03/14/24 03/14/24 22:59 06:59 14:59 Intake Total 840 / 1090 250 / 1090 Output Total 502 / 1830 252 / 1830 Balance 338 / -740 -2 / -740 Intake: Oral 840 / 1090 250 / 1090 Output: Urine Amount (Catheter) 500 / 1825 250 / 1825 Scott/Indwelling 500 / 1825 250 / 1825 # Bowel Movements 2 / 5 2 / 5 Other: Weight 69.3 kg Weight Measurement Method Built in [facility]
[2024-03-14] MEDS: traMADol HCL 50 MG TABLET PO PRN (09:01)
--- NOTE | 2024-03-14 10:55 | Electrocardiogram Report ---
Test Reason : Blood Pressure : */* mmHG Vent. Rate : 69 BPM Atrial Rate : 69 BPM P-R Int : 154 ms QRS Dur : 68 ms QT Int : 408 ms P-R-T Axes : 80 52 74 degrees QTcB Int : 437 ms Sinus rhythm with Premature supraventricular complexes Cannot rule out Anterior infarct (cited on or before 27-Jan-2024) Abnormal ECG When compared with ECG of 06-Mar-2024 16:00, No significant change was found Confirmed by Heber Loja ([id number]) on 03/14/2024 10:54:50 AM Referred By: Vitaliy Cobos Confirmed By: Heber Loja
[2024-03-14] MEDS: AMMONIUM LACTATE 12% LOTION 225 GM BTL EXT SCH (11:17)
[2024-03-14 12:32] LABS: Calcium 7.5 mg/dl (8.6-10.3); Creatinine Clr Calc Pharmacy 40.6 ml/min; Potassium 3.3 mmol/L (3.5-5.1)
--- NOTE | 2024-03-14 14:04 | Hospitalist Progress Note ---
Date of Service March 14, 2024 Assessment & Plan (1) Pancytopenia: Plan Ms. Huizar is a 73-year-old lady with complex medical history of PAF currently not on anticoagulation, HTN, GERD, CML undergoing chemotherapy, chronic pancytopenia, rheumatoid arthritis who was recently admitted at for about a month at [facility] [place] for blast crisis and was also seen by cath lab radiology technician during this stay for her acute on chronic CHF who is now admitted for pancytopenia. Patient was discharged from [facility] to rehab at [facility] where she was able to participate for about 2 weeks; however, op labs revealed hemoglobin 7.5 and platelets of 5 in outpatient lab draw. Patient was noted to be neutropenic, with loose stools and questionable cellulitis. Patient able to complete some treatment for CMML, however, her hospitalization was notably complicated. From a cardiac standpoint, she experienced a fib rvr, was started on daily lasix IV lasix with minimal improvement. Platelets on discharge were 30K and eliquis was discontinued. Patient with fluctuating transaminitis though to be medication related. Patient also treated for staph coag negative UTI and parotitis. Patient with "erythema nodosa lesions n left leg" per review of discharge summary on 02.26. Patient continued on Vanco and Unasyn until 02/22 after undergoing multiple tooth extractions, intensive infectious work up. Patient was to follow up with Dr. Reyes (Oncologist) for C3 AZA and C2 Justino Patient remained on IV lasix q6 with notable diuresis; however, further diuersis limited by hypotension and renal function. Will likely resume as able, however, noted to have extra losses with loose stools day prior. #Acute on chronic pancytopenia 2/2 CMML and chemotherapy #Severe Neutropenia #CMML #AML Bone Marrow Biopsy 01/28 hypercellular marrow, borderline high blasts, marrow reticulin fibrosis Repeat D21 BMBX on 02/25 was performed at [facility] Patient s/p hydrea for cytoreduction, s/p c2 Aza, and completed 14 days venetoclax Double lumen PICC 02/[address] 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 No purulent drainage noted. Ble venous doppler neg for DVT, Wound care evaled, recommended surgical evaluation -No surgical intervention at this time Hold PPX ciprofloxacin Continue with Dapto and cefepime, await final recs from ID -Currently day 6 of IV abx with above MRSA coverage EOT 03/15 Will complete 7 days of above IV abx #Volume overload, c/f Acute on chronic heart failure with preserved EF v iatrogenic/hypoalbuminemia Patient transfusion dependent at this time Replace electrolytes PO given concern for additional volume from IV replacement ECHO reviewed with mild LVH, EF 55-60%, grade II DDfx, pulm htn Monitor on telemetry Cardiology following closely -Holding on IV albumin and IV lasix 20mg q 6 due to hypotension at this time; will resume as able -continue spironolactone 12.5mg to spare potassium #Paroxysmal Atrial fibrillation Continue Metoprolol, hold parameters adjusted per Cards given issues with #Mild hypernatremia: Admitting sodium of 147. Resolved. #Diarrhea #norovirus gastroenteritis Supportive care continue fiber D/c mag oxide given diarrhea today Monitor stool output, consider rectal tube if ongoing 2/2 wounds on buttock C diff ordered #Electrolyte abnormalities [hypokalemia and hypomagnesemia]: Likely secondary to above Encourage po intake, PO replacement as able given concern for volume overload Other chronic medical conditions: Continue with/resume home meds as when able. PAF, patient NSR, currently not on anticoagulation due to thrombocytopenia. hypertension, BP on the lower side , metoprolol dose decreased at presentation, uptitrate as able towards home dose as needed. hx GERD Rheumatoid arthritis as per records CHF: chronic, unspecified type. no records available yet for prior echo. DVT prophylaxis. SCDs Re: Thrombocytopenia DNR Patient daughter Ms. Alma Dillard, contact #[phone]. PT/OT ANA MARÍA izquierdo to assist w/ DC plan. Admission and Anticipated Discharge Date Admission Date: March 05, 2024 Subjective Patient in great spirits this am given multiple visitors States she feels she is doing good and feeling optimistic Denies any new concerns this am, reports multiple "fears" and "worries" but nothing clinical at this time Physical Exam Constitutional: WD/WN, vitals as above Respiratory: normal respiratory effort, lungs clear to auscultation Cardiovascular: RRR Skin: notable improvement in general complexion, and coloration of BLE, swelling 1+ up to thighs Results & Data Results & Data Vital Signs (Past 12 Hours) Vital Signs Temp Pulse Pulse Resp BP Pulse Ox O2 Del Method 03/14/24 11:44 36.6 C 68 18 93/47 L 100 Room Air 03/14/24 08:10 64 03/14/24 08:00 Room Air 03/14/24 07:37 36.6 C 64 18 107/47 L 97 Room Air 03/14/24 04:00 36.7 C 72 18 109/56 L 99 Room Air Laboratory Results Short CBC 03/14/24 Range/Units 05:38 WBC 1.17 L (4.8-10.8) K/ul Hgb 7.9 L (12.0-16.0) g/dl Hct 23.8 L (37.0-47.0) % Plt Count 29 L* (130-400) K/uL BMP 03/14/24 03/14/24 05:38 11:52 Sodium 145 143 Potassium 4.3 D 3.3 L D Chloride 115 H 113 H Carbon Dioxide 25 24 BUN 29 H 30 H Creatinine 1.29 H 1.11 Glucose 92 95 Calcium 7.6 L 7.5 L Medications Administered Home Medications Medication Instructions Recorded Confirmed Last Taken acetaminophen 325 mg tablet 650 mg PO Q6H PRN Fever greater 01/27/24 03/05/24 Unknown (Tylenol) than 100/Pain acyclovir 400 mg tablet 400 mg PO BID 01/27/24 03/05/24 Unknown bisacodyl 10 mg rectal suppository 10 mg MD DIRECTED PRN 01/27/24 03/05/24 Unknown Constipation cholecalciferol (vitamin D3) 25 25 mcg PO QAM 01/27/24 03/05/24 Unknown mcg (1,000 unit) tablet ciprofloxacin HCl 500 mg tablet 500 mg PO BID 01/27/24 03/05/24 Unknown folic acid 1 mg tablet 1 mg PO QAM 01/27/24 03/05/24 Unknown furosemide 40 mg tablet 40 mg PO QAM 01/27/24 03/05/24 Unknown multivitamin 1 tab PO QAM 01/27/24 03/05/24 Unknown ondansetron 4 mg disintegrating 4 mg PO Q6H PRN NAUSEA/VOMITTING 01/27/24 03/05/24 Unknown tablet pantoprazole 40 mg tablet,delayed 40 mg PO DAILYBB 01/27/24 03/05/24 Unknown release posaconazole 100 mg tablet,delayed See Rx Instructions .Route .COMPLEX 01/27/24 03/05/24 Unknown release sodium phosphates 19 gram-7 118 ml MD DAILY PRN CONSTIPATION 01/27/24 03/05/24 Unknown gram/118 mL enema (Fleet Enema) Magic Mix See Rx Instructions .Route .COMPLEX 03/05/24 03/05/24 Unknown calcium carbonate 500 mg PO QDL 03/05/24 03/05/24 Unknown carbamide peroxide 6.5 % ear drops 5 drp otic (ear) BID 03/05/24 03/05/24 Unknown (Debrox) magnesium hydroxide 400 mg/5 mL 2,400 mg PO DAILY PRN Constipation 03/05/24 03/05/24 Unknown oral suspension (Milk of Magnesia) metoprolol succinate 100 mg 100 mg PO DAILY 03/05/24 03/05/24 Unknown capsule sprinkle, ext. release 24 hr polyvinyl alcohol 1.4 % eye drops 1 drp OPB Q8H Blepharitis 03/05/24 03/05/24 Unknown (Artificial Tears (polyvinyl alcohol)) potassium chloride 20 mEq/15 mL 60 meq PO Q12H 03/05/24 03/05/24 Unknown oral liquid Active Medications Generic Name Dose Route Start Last Admin Trade Name Freq PRN Reason Stop Dose Admin Acetaminophen 650 mg 03/05/24 23:54 03/10/24 20:07 Acetaminophen 325 Mg Tab PO 04/04/24 23:53 650 mg QID PRN Administration pain/fever Acyclovir 400 mg 03/06/24 09:00 03/14/24 08:56 Acyclovir 400 Mg Tab PO 04/05/24 08:59 400 mg BID LEONARDO Administration Artificial Tears 1 drops 03/06/24 04:00 03/14/24 11:18 Artificial Tears OP 04/05/24 03:59 1 drops Q8H LEONARDO Administration Calcium/Vitamin D 1 tab 03/12/24 09:00 03/14/24 08:56 Calcium 600mg + Vit D 400 Iu Tab PO 04/11/24 08:59 1 tab BID LEONARDO Administration Cholestyramine Resin 4 gm 03/06/24 12:30 03/14/24 11:09 Cholestyramine Light 4 Gm Pkt PO 04/05/24 12:29 4 gm BID@1000,2200 LEONARDO Administration Diphenhydramine HCl 12.5 mg 03/06/24 17:46 03/12/24 09:50 Diphenhydramine 50 Mg/Ml Vial IV 04/05/24 17:45 12.5 mg Q6H PRN Administration Allergic Reaction Furosemide 20 mg 03/10/24 23:00 03/13/24 11:05 Furosemide Inj 20 Mg/2 Ml Vial IV 04/09/24 22:59 20 mg Q6H LEONARDO Administration Daptomycin 450 mg/ Syringe 9 mls @ 4.5 mls/min 03/09/24 16:00 03/13/24 16:56 IV 03/16/24 15:59 4.5 mls/min Q24H LEONARDO Administration Protocol Lactic Acid 1 gm 03/14/24 10:15 03/14/24 11:17 Ammonium Lactate 12% Lotion 225 Gm Btl EXT 04/13/24 10:14 1 gm BID LEONARDO Administration Lactobacillus Acidophilus 1,250 mg 03/06/24 10:30 03/14/24 08:56 Advanced Probiotic 625 Mg Capsule PO 04/05/24 10:29 1,250 mg DAILY LEONARDO Administration Loperamide HCl 2 mg 03/07/24 03:16 03/14/24 04:01 Loperamide Hcl 2 Mg Cap PO 04/06/24 03:15 2 mg UD PRN Administration Diarrhea Magnesium Chloride 64 mg 03/13/24 21:00 03/14/24 08:57 Magnesium Chloride W/Calcium 64mg Delayed Rel Tab PO 04/12/24 20:59 64 mg BID LEONARDO Administration Metoprolol Succinate 50 mg 03/08/24 09:00 03/14/24 08:56 Metoprolol Succ 50mg Ext Rel Tab PO 04/07/24 08:59 50 mg DAILY LEONARDO Administration Multivitamins 1 tab 03/06/24 09:00 03/14/24 08:56 Multivitamin Tab PO 04/05/24 08:59 1 tab QAM LEONARDO Administration Pantoprazole Sodium 40 mg 03/06/24 06:30 03/14/24 05:58 Pantoprazole 40 Mg Tab PO 04/05/24 06:29 40 mg DAILYBB LEONARDO Administration Posaconazole 3 each 03/11/24 09:00 03/14/24 08:56 Posaconazole PO 04/10/24 08:59 3 each Q24H LEONARDO Administration Psyllium Hydrophilic Mucilloid 4 gm 03/13/24 21:00 03/14/24 08:56 Psyllium Or Guar Gum Fiber 4gm Packet PO 04/12/24 20:59 4 gm BID LEONARDO Administration Spironolactone 12.5 mg 03/13/24 09:00 03/14/24 08:56 Spironolactone 12.5 Mg Tab PO 04/12/24 08:59 12.5 mg DAILY LEONARDO Administration Tramadol HCl 25 mg 03/05/24 23:56 03/14/24 09:01 Tramadol Hcl 50 Mg Tablet PO 04/04/24 23:55 25 mg Q4H PRN Administration Pain
[2024-03-14] MEDS: POTASSIUM CHLORIDE 20 MEQ/15 ML UDC PO SCH (19:36)
[2024-03-15 07:28] LABS: Hematocrit (blood only) 24.1 % (37.0-47.0); Mean Corpuscular Hemoglobin 29.1 pg (25.0-34.0); Mean Corpuscular Hgb Conc 33.2 g/dL (32.0-36.0); Mean Corpuscular Volume 87.6 fL (80.0-100.0); Mean Platelet Volume 12.2 fL (9.4-12.4); Platelet Count 36 K/uL (130-400); RDW Coefficient of Variation 15.9 % (11.5-14.5); RDW Standard Deviation 50.3 fL (36.4-46.3); Red Blood Count 2.75 M/uL (4.20-5.40); White Blood Count 1.42 K/ul (4.8-10.8)
[2024-03-15 07:46] LABS: Acanthocytes 1+; BUN Creatinine Ratio 21.8 (10-20); Calcium 7.7 mg/dl (8.6-10.3); Creatinine Clr Calc Pharmacy 37.4 ml/min; Dohle Bodies 1+; Magnesium 1.4 mg/dl (1.7-2.4); Phosphorus 2.9 mg/dl (2.5-4.9); Polychromasia 1+; Potassium 3.8 mmol/L (3.5-5.1); Toxic Granulation 1+
[2024-03-15 07:51] LABS: Basophils # (auto) 0.01 K/uL (0.00-0.20); Basophils % (auto) 0.7 %; Eosinophils # (auto) 0.02 K/uL (0.00-0.50); Eosinophils % (auto) 1.4 %; Immature Granulocytes # (auto) 0.05 K/uL (0.01-0.20); Immature Granulocytes % (auto) 3.5 %; Lymphocytes # (auto) 0.56 K/uL (1.20-3.40); Lymphocytes % (auto) 39.4 %; Monocytes # (auto) 0.08 K/uL (0.11-0.59); Monocytes % (auto) 5.6 %; Neutrophils % (auto) 49.4 %
--- NOTE | 2024-03-15 12:28 | Hospitalist Progress Note ---
Date of Service March 15, 2024 Assessment & Plan (1) Pancytopenia: Plan Ms. Huizar is a 73-year-old lady with complex medical history of PAF currently not on anticoagulation, HTN, GERD, CML undergoing chemotherapy, chronic pancytopenia, rheumatoid arthritis who was recently admitted at for about a month at [facility] [place] for blast crisis and was also seen by associate consulting engineer during this stay for her acute on chronic CHF who is now admitted for pancytopenia. Patient was discharged from [facility] to rehab at [facility] where she was able to participate for about 2 weeks; however, op labs revealed hemoglobin 7.5 and platelets of 5 in outpatient lab draw. Patient was noted to be neutropenic, with loose stools and questionable cellulitis. Patient able to complete some treatment for CMML, however, her hospitalization was notably complicated. From a cardiac standpoint, she experienced a fib rvr, was started on daily lasix IV lasix with minimal improvement. Platelets on discharge were 30K and eliquis was discontinued. Patient with fluctuating transaminitis though to be medication related. Patient also treated for staph coag negative UTI and parotitis. Patient with "erythema nodosa lesions n left leg" per review of discharge summary on 02.26. Patient continued on Vanco and Unasyn until 02/22 after undergoing multiple tooth extractions, intensive infectious work up. Patient was to follow up with Dr. Reyes (Oncologist) for C3 AZA and C2 Justino Patient remained on IV lasix q6 with notable diuresis; however, further diuersis limited by hypotension and renal function. Determination made to transition to PO torsemide today and attempt to finalize a PO regimen in hopes to transition patient to rehab. 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 No purulent drainage noted. Ble venous doppler neg for DVT, Wound care evaled, recommended surgical evaluation -No surgical intervention at this time Hold PPX ciprofloxacin Continue with Dapto and cefepime, await final recs from ID -Currently day 7 of IV abx with above MRSA coverage EOT 03/15 will monitor fever curve s/p completion Will resume PPX cipro when complete #Volume overload, c/f Acute on chronic heart failure with preserved EF v iatrogenic/hypoalbuminemia Patient transfusion dependent at this time Replace electrolytes PO given concern for additional volume from IV replacement ECHO reviewed with mild LVH, EF 55-60%, grade II DDfx, pulm htn Monitor on telemetry Cardiology following closely -Holding on IV albumin and IV lasix 20mg q 6 due to hypotension at this time Discussing addition of PO diuretic v IV with Cards given tenuous volume status -continue spironolactone 12.5mg to spare potassium #Paroxysmal Atrial fibrillation Continue Metoprolol, hold parameters adjusted per Cards given issues with #Mild hypernatremia: Admitting sodium of 147. Resolved. #Diarrhea #norovirus gastroenteritis Supportive care continue fiber D/c mag oxide given diarrhea today Monitor stool output, consider rectal tube if ongoing 2/2 wounds on buttock C diff ordered #Electrolyte abnormalities [hypokalemia and hypomagnesemia]: Likely secondary to above Encourage po intake, PO replacement as able given concern for volume overload Other chronic medical conditions: Continue with/resume home meds as when able. PAF, patient NSR, currently not on anticoagulation due to thrombocytopenia. hypertension, BP on the lower side , metoprolol dose decreased at presentation, uptitrate as able towards home dose as needed. hx GERD Rheumatoid arthritis as per records DVT prophylaxis. SCDs Re: Thrombocytopenia DNR Patient daughter Ms. Alma Dillard, contact #[phone]. PT/OT ANA MARÍA izquierdo to assist w/ DC plan. Admission and Anticipated Discharge Date Admission Date: March 05, 2024 Subjective Evaluated patient at bedside Reports feeling much better today with reduced bowel movements in comparison to day prior Encouraged patient to sit in bedside chair, she became tearful and anxious, encouragement offered Patient denies any new concerns, though difficult to keep on topic Physical Exam Constitutional: frail, chronically ill appearing woman, though more energetic than days prior Respiratory: normal respiratory effort, lungs clear to auscultation Cardiovascular: RRR, legs with more gravity dependent edema though much improved in comparison to days prior, skin eyrthema near resolved on legs Results & Data Results & Data Vital Signs (Past 12 Hours) Vital Signs Temp Pulse Pulse Resp BP Pulse Ox O2 Del Method 03/15/24 12:00 36.6 C 64 18 101/55 L 98 Room Air 03/15/24 09:50 67 03/15/24 08:00 Room Air 03/15/24 07:50 36.7 C 68 18 105/57 L 100 Room Air 03/15/24 03:27 36.7 C 69 18 115/54 L 97 Room Air Laboratory Results Short CBC 03/15/24 Range/Units 07:08 WBC 1.42 L (4.8-10.8) K/ul Hgb 8.0 L (12.0-16.0) g/dl Hct 24.1 L (37.0-47.0) % Plt Count 36 L (130-400) K/uL BMP 03/15/24 07:08 Sodium 144 Potassium 3.8 Chloride 114 H Carbon Dioxide 25 BUN 26 H Creatinine 1.19 Glucose 76 Calcium 7.7 L Medications Administered Home Medications Medication Instructions Recorded Confirmed Last Taken acetaminophen 325 mg tablet 650 mg PO Q6H PRN Fever greater 01/27/24 03/05/24 Unknown (Tylenol) than 100/Pain acyclovir 400 mg tablet 400 mg PO BID 01/27/24 03/05/24 Unknown bisacodyl 10 mg rectal suppository 10 mg RI DIRECTED PRN 01/27/24 03/05/24 Unknown Constipation cholecalciferol (vitamin D3) 25 25 mcg PO QAM 01/27/24 03/05/24 Unknown mcg (1,000 unit) tablet ciprofloxacin HCl 500 mg tablet 500 mg PO BID 01/27/24 03/05/24 Unknown folic acid 1 mg tablet 1 mg PO QAM 01/27/24 03/05/24 Unknown furosemide 40 mg tablet 40 mg PO QAM 01/27/24 03/05/24 Unknown multivitamin 1 tab PO QAM 01/27/24 03/05/24 Unknown ondansetron 4 mg disintegrating 4 mg PO Q6H PRN NAUSEA/VOMITTING 01/27/24 03/05/24 Unknown tablet pantoprazole 40 mg tablet,delayed 40 mg PO DAILYBB 01/27/24 03/05/24 Unknown release posaconazole 100 mg tablet,delayed See Rx Instructions .Route .COMPLEX 01/27/24 03/05/24 Unknown release sodium phosphates 19 gram-7 118 ml RI DAILY PRN CONSTIPATION 01/27/24 03/05/24 Unknown gram/118 mL enema (Fleet Enema) Magic Mix See Rx Instructions .Route .COMPLEX 03/05/24 03/05/24 Unknown calcium carbonate 500 mg PO QDL 03/05/24 03/05/24 Unknown carbamide peroxide 6.5 % ear drops 5 drp otic (ear) BID 03/05/24 03/05/24 Unknown (Debrox) magnesium hydroxide 400 mg/5 mL 2,400 mg PO DAILY PRN Constipation 03/05/24 03/05/24 Unknown oral suspension (Milk of Magnesia) metoprolol succinate 100 mg 100 mg PO DAILY 03/05/24 03/05/24 Unknown capsule sprinkle, ext. release 24 hr polyvinyl alcohol 1.4 % eye drops 1 drp OPB Q8H Blepharitis 03/05/24 03/05/24 Unknown (Artificial Tears (polyvinyl alcohol)) potassium chloride 20 mEq/15 mL 60 meq PO Q12H 03/05/24 03/05/24 Unknown oral liquid Active Medications Generic Name Dose Route Start Last Admin Trade Name Freq PRN Reason Stop Dose Admin Acetaminophen 650 mg 03/05/24 23:54 03/14/24 23:35 Acetaminophen 325 Mg Tab PO 04/04/24 23:53 650 mg QID PRN Administration pain/fever Acyclovir 400 mg 03/06/24 09:00 03/15/24 09:16 Acyclovir 400 Mg Tab PO 04/05/24 08:59 400 mg BID LEONARDO Administration Artificial Tears 1 drops 03/06/24 04:00 03/15/24 11:38 Artificial Tears OP 04/05/24 03:59 Not Given Q8H LEONARDO Cholestyramine Resin 4 gm 03/06/24 12:30 03/15/24 09:17 Cholestyramine Light 4 Gm Pkt PO 04/05/24 12:29 4 gm BID@1000,2200 LEONARDO Administration Diphenhydramine HCl 12.5 mg 03/06/24 17:46 03/12/24 09:50 Diphenhydramine 50 Mg/Ml Vial IV 04/05/24 17:45 12.5 mg Q6H PRN Administration Allergic Reaction Furosemide 20 mg 03/10/24 23:00 03/13/24 11:05 Furosemide Inj 20 Mg/2 Ml Vial IV 04/09/24 22:59 20 mg Q6H LEONARDO Administration Daptomycin 450 mg/ Syringe 9 mls @ 4.5 mls/min 03/09/24 16:00 03/14/24 16:12 IV 03/16/24 15:59 4.5 mls/min Q24H LEONARDO Administration Protocol Lactic Acid 1 gm 03/14/24 10:15 03/15/24 09:15 Ammonium Lactate 12% Lotion 225 Gm Btl EXT 04/13/24 10:14 1 gm BID LEONARDO Administration Lactobacillus Acidophilus 1,250 mg 03/06/24 10:30 03/15/24 09:15 Advanced Probiotic 625 Mg Capsule PO 04/05/24 10:29 1,250 mg DAILY LEONARDO Administration Loperamide HCl 2 mg 03/07/24 03:16 03/15/24 09:14 Loperamide Hcl 2 Mg Cap PO 04/06/24 03:15 2 mg UD PRN Administration Diarrhea Metoprolol Succinate 50 mg 03/08/24 09:00 03/15/24 09:15 Metoprolol Succ 50mg Ext Rel Tab PO 04/07/24 08:59 50 mg DAILY LEONARDO Administration Multivitamins 1 tab 03/06/24 09:00 03/15/24 09:15 Multivitamin Tab PO 04/05/24 08:59 1 tab QAM LEONARDO Administration Pantoprazole Sodium 40 mg 03/06/24 06:30 03/15/24 06:44 Pantoprazole 40 Mg Tab PO 04/05/24 06:29 40 mg DAILYBB LEONARDO Administration Posaconazole 3 each 03/11/24 09:00 03/15/24 09:17 Posaconazole PO 04/10/24 08:59 3 each Q24H LEONARDO Administration Potassium Chloride 40 meq 03/14/24 21:00 03/15/24 09:15 Potassium Chloride 20 Meq/15 Ml Udc PO 04/13/24 20:59 40 meq BID LEONARDO Administration Psyllium Hydrophilic Mucilloid 4 gm 03/13/24 21:00 03/15/24 09:17 Psyllium Or Guar Gum Fiber 4gm Packet PO 04/12/24 20:59 4 gm BID LEONARDO Administration Spironolactone 12.5 mg 03/13/24 09:00 03/15/24 09:15 Spironolactone 12.5 Mg Tab PO 04/12/24 08:59 12.5 mg DAILY LEONARDO Administration Tramadol HCl 25 mg 03/05/24 23:56 03/15/24 09:13 Tramadol Hcl 50 Mg Tablet PO 04/04/24 23:55 25 mg Q4H PRN Administration Pain
[2024-03-15] MEDS: TORSEMIDE 20 MG TAB PO SCH (13:36)
[2024-03-15] MEDS: CALCIUM 600MG + VIT D 400 IU TAB PO SCH (21:42)
[2024-03-15] MEDS: MAGNESIUM CHLORIDE W/CALCIUM 64MG DELAYED REL TAB PO SCH (21:42)
[2024-03-16 06:08] LABS: Hematocrit (blood only) 24.4 % (37.0-47.0); Hemoglobin 7.8 g/dl (12.0-16.0); Mean Corpuscular Hemoglobin 28.7 pg (25.0-34.0); Mean Corpuscular Volume 89.7 fL (80.0-100.0); Platelet Count 44 K/uL (130-400); RDW Coefficient of Variation 15.8 % (11.5-14.5); RDW Standard Deviation 50.4 fL (36.4-46.3); Red Blood Count 2.72 M/uL (4.20-5.40); White Blood Count 1.34 K/ul (4.8-10.8)
[2024-03-16 06:18] LABS: Creatinine Clr Calc Pharmacy 34.3 ml/min; Magnesium 1.5 mg/dl (1.7-2.4); Phosphorus 3.3 mg/dl (2.5-4.9); Potassium 4.5 mmol/L (3.5-5.1)
[2024-03-16 07:35] LABS: ALC (manual) 0.75 K/uL (1.2-3.4); Basophils # (manual) 0.01 K/uL (0-0.2); Basophils % (manual) 1 %; Blast # (manual) 0.04 K/uL (0-0); Blast Cells % (manual) 3 %; Dohle Bodies 1+; Eosinophils # (manual) 0.04 K/uL (0-0.50); Eosinophils % (manual) 3 %; Lymphocytes # (manual) 0.75 K/uL (1.2-3.4); Lymphocytes % (manual) 56 %; Neutrophils % (manual) 37 %; Polychromasia 1+
--- NOTE | 2024-03-16 11:18 | Hospitalist Progress Note ---
Date of Service March 16, 2024 Assessment & Plan (1) Pancytopenia: Plan Ms. Huizar is a 73-year-old lady with complex medical history of PAF currently not on anticoagulation, HTN, GERD, CML undergoing chemotherapy, chronic pancytopenia, rheumatoid arthritis who was recently admitted at for about a month at [facility] [place] for blast crisis and was also seen by tilesetter during this stay for her acute on chronic CHF who is now admitted for pancytopenia. Patient was discharged from [facility] to rehab at [facility] where she was able to participate for about 2 weeks; however, op labs revealed hemoglobin 7.5 and platelets of 5 in outpatient lab draw. Patient was noted to be neutropenic, with loose stools and questionable cellulitis. Patient able to complete some treatment for CMML, however, her hospitalization was notably complicated. From a cardiac standpoint, she experienced a fib rvr, was started on daily lasix IV lasix with minimal improvement. Platelets on discharge were 30K and eliquis was discontinued. Patient with fluctuating transaminitis though to be medication related. Patient also treated for staph coag negative UTI and parotitis. Patient with "erythema nodosa lesions n left leg" per review of discharge summary on 02.26. Patient continued on Vanco and Unasyn until 02/22 after undergoing multiple tooth extractions, intensive infectious work up. Patient was to follow up with Dr. Reyes (Oncologist) for C3 AZA and C2 Justino Patient remained on IV lasix q6 with notable diuresis; however, further diuersis limited by hypotension and renal function. Patient transitioned to PO torsemide 03/16. 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 No purulent drainage noted. Ble venous doppler neg for DVT, Wound care evaled, recommended surgical evaluation -No surgical intervention at this time -Plan for santyl Hold PPX ciprofloxacin Continue with Dapto and cefepime, await final recs from ID -Currently day 7 of IV abx with above MRSA coverage EOT 03/15 will monitor fever curve s/p completion resume PPX cipro #Volume overload, c/f Acute on chronic heart failure with preserved EF v iatrogenic/hypoalbuminemia Patient transfusion dependent at this time Replace electrolytes PO given concern for additional volume from IV replacement ECHO reviewed with mild LVH, EF 55-60%, grade II DDfx, pulm htn Monitor on telemetry Cardiology following closely -Holding on IV albumin and IV lasix 20mg q 6 due to hypotension at this time Discussing addition of PO diuretic v IV with Cards given tenuous volume status -Continue torsemide PO, monitor renal function -continue spironolactone 12.5mg to spare potassium, consider discontinuation if renal function up trends #Paroxysmal Atrial fibrillation Continue Metoprolol, hold parameters adjusted per Cards given issues with #Mild hypernatremia: Admitting sodium of 147. Resolved. #Diarrhea #norovirus gastroenteritis Supportive care continue fiber D/c mag oxide given diarrhea today Monitor stool output, consider rectal tube if ongoing 2/2 wounds on buttock C diff negative #Electrolyte abnormalities [hypokalemia and hypomagnesemia]: Likely secondary to above Encourage po intake, PO replacement as able given concern for volume overload Other chronic medical conditions: Continue with/resume home meds as when able. PAF, patient NSR, currently not on anticoagulation due to thrombocytopenia. hypertension, BP on the lower side , metoprolol dose decreased at presentation, uptitrate as able towards home dose as needed. hx GERD Rheumatoid arthritis as per records DVT prophylaxis. SCDs Re: Thrombocytopenia DNR Patient daughter Ms. Alma Dillard, contact #[phone]. PT/OT ANA MARÍA izquierdo to assist w/ DC plan. Admission and Anticipated Discharge Date Admission Date: March 05, 2024 Subjective evaluated patient at bedside reports feeling ok today, denies any new concerns Physical Exam Constitutional: WD/WN, vitals as above Respiratory: normal respiratory effort, lungs clear to auscultation Cardiovascular: RRR, no murmur, no edema Results & Data Results & Data Vital Signs (Past 12 Hours) Vital Signs Temp Pulse Pulse Resp BP Pulse Ox O2 Del Method 03/16/24 08:21 69 03/16/24 08:08 36.8 C 72 20 107/48 L 97 Room Air 03/16/24 03:15 36.6 C 75 18 117/63 99 Room Air Laboratory Results Short CBC 03/16/24 Range/Units 05:22 WBC 1.34 L (4.8-10.8) K/ul Hgb 7.8 L (12.0-16.0) g/dl Hct 24.4 L (37.0-47.0) % Plt Count 44 L (130-400) K/uL BMP 03/16/24 05:22 Sodium 145 Potassium 4.5 Chloride 116 H Carbon Dioxide 24 BUN 23 Creatinine 1.28 H Glucose 83 Calcium 8.0 L Medications Administered Home Medications Medication Instructions Recorded Confirmed Last Taken acetaminophen 325 mg tablet 650 mg PO Q6H PRN Fever greater 01/27/24 03/05/24 Unknown (Tylenol) than 100/Pain acyclovir 400 mg tablet 400 mg PO BID 01/27/24 03/05/24 Unknown bisacodyl 10 mg rectal suppository 10 mg NV DIRECTED PRN 01/27/24 03/05/24 U nknown Constipation cholecalciferol (vitamin D3) 25 25 mcg PO QAM 01/27/24 03/05/24 Unknown mcg (1,000 unit) tablet ciprofloxacin HCl 500 mg tablet 500 mg PO BID 01/27/24 03/05/24 Unknown folic acid 1 mg tablet 1 mg PO QAM 01/27/24 03/05/24 Unknown furosemide 40 mg tablet 40 mg PO QAM 01/27/24 03/05/24 Unknown multivitamin 1 tab PO QAM 01/27/24 03/05/24 Unknown ondansetron 4 mg disintegrating 4 mg PO Q6H PRN NAUSEA/VOMITTING 01/27/24 03/05/24 Unknown tablet pantoprazole 40 mg tablet,delayed 40 mg PO DAILYBB 01/27/24 03/05/24 Unknown release posaconazole 100 mg tablet,delayed See Rx Instructions .Route .COMPLEX 01/27/24 03/05/24 Unknown release sodium phosphates 19 gram-7 118 ml NV DAILY PRN CONSTIPATION 01/27/24 03/05/24 Unknown gram/118 mL enema (Fleet Enema) Magic Mix See Rx Instructions .Route .COMPLEX 03/05/24 03/05/24 Unknown calcium carbonate 500 mg PO QDL 03/05/24 03/05/24 Unknown carbamide peroxide 6.5 % ear drops 5 drp otic (ear) BID 03/05/24 03/05/24 Unknown (Debrox) magnesium hydroxide 400 mg/5 mL 2,400 mg PO DAILY PRN Constipation 03/05/24 03/05/24 Unknown oral suspension (Milk of MagnWedding Spot) metoprolol succinate 100 mg 100 mg PO DAILY 03/05/24 03/05/24 Unknown capsule sprinkle, ext. release 24 hr polyvinyl alcohol 1.4 % eye drops 1 drp OPB Q8H Blepharitis 03/05/24 03/05/24 Unknown (Artificial Tears (polyvinyl alcohol)) potassium chloride 20 mEq/15 mL 60 meq PO Q12H 03/05/24 03/05/24 Unknown oral liquid Active Medications Generic Name Dose Route Start Last Admin Trade Name Freq PRN Reason Stop Dose Admin Acetaminophen 650 mg 03/05/24 23:54 03/14/24 23:35 Acetaminophen 325 Mg Tab PO 04/04/24 23:53 650 mg QID PRN Administration pain/fever Acyclovir 400 mg 03/06/24 09:00 03/16/24 10:10 Acyclovir 400 Mg Tab PO 04/05/24 08:59 400 mg BID LEONARDO Administration Artificial Tears 1 drops 03/06/24 04:00 03/16/24 11:58 Artificial Tears OP 04/05/24 03:59 1 drops Q8H LEONARDO Administration Calcium/Vitamin D 2 tab 03/15/24 21:00 03/16/24 10:10 Calcium 600mg + Vit D 400 Iu Tab PO 04/14/24 20:59 2 tab BID LEONARDO Administration Cholestyramine Resin 4 gm 03/06/24 12:30 03/16/24 11:57 Cholestyramine Light 4 Gm Pkt PO 04/05/24 12:29 4 gm BID@1000,2200 LEONARDO Administration Diphenhydramine HCl 12.5 mg 03/06/24 17:46 03/12/24 09:50 Diphenhydramine 50 Mg/Ml Vial IV 04/05/24 17:45 12.5 mg Q6H PRN Administration Allergic Reaction Daptomycin 450 mg/ Syringe 9 mls @ 4.5 mls/min 03/09/24 16:00 03/15/24 15:55 IV 03/16/24 15:59 4.5 mls/min Q24H LEONARDO Administration Protocol Lactic Acid 1 gm 03/14/24 10:15 03/16/24 10:10 Ammonium Lactate 12% Lotion 225 Gm Btl EXT 04/13/24 10:14 1 gm BID LEONARDO Administration Lactobacillus Acidophilus 1,250 mg 03/06/24 10:30 03/16/24 10:11 Advanced Probiotic 625 Mg Capsule PO 04/05/24 10:29 1,250 mg DAILY LEONARDO Administration Loperamide HCl 2 mg 03/07/24 03:16 03/16/24 11:57 Loperamide Hcl 2 Mg Cap PO 04/06/24 03:15 2 mg UD PRN Administration Diarrhea Magnesium Chloride 128 mg 03/15/24 21:00 03/16/24 10:11 Magnesium Chloride W/Calcium 64mg Delayed Rel Tab PO 04/14/24 20:59 128 mg BID LEONARDO Administration Metoprolol Succinate 50 mg 03/08/24 09:00 03/16/24 10:11 Metoprolol Succ 50mg Ext Rel Tab PO 04/07/24 08:59 50 mg DAILY LEONARDO Administration Multivitamins 1 tab 03/06/24 09:00 03/16/24 10:11 Multivitamin Tab PO 04/05/24 08:59 1 tab QAM LEONARDO Administration Pantoprazole Sodium 40 mg 03/06/24 06:30 03/16/24 05:58 Pantoprazole 40 Mg Tab PO 04/05/24 06:29 40 mg DAILYBB LEONARDO Administration Posaconazole 3 each 03/11/24 09:00 03/16/24 10:11 Posaconazole PO 04/10/24 08:59 3 each Q24H LEONARDO Administration Potassium Chloride 40 meq 03/14/24 21:00 03/16/24 10:11 Potassium Chloride 20 Meq/15 Ml Udc PO 04/13/24 20:59 40 meq BID LEONARDO Administration Psyllium Hydrophilic Mucilloid 4 gm 03/13/24 21:00 03/16/24 10:12 Psyllium Or Guar Gum Fiber 4gm Packet PO 04/12/24 20:59 4 gm BID LEONARDO Administration Spironolactone 12.5 mg 03/13/24 09:00 03/16/24 10:12 Spironolactone 12.5 Mg Tab PO 04/12/24 08:59 12.5 mg DAILY LEONARDO Administration Torsemide 20 mg 03/15/24 12:45 03/16/24 11:03 Torsemide 20 Mg Tab PO 04/14/24 12:44 20 mg QAM LEONARDO Administration Tramadol HCl 25 mg 03/05/24 23:56 03/15/24 09:13 Tramadol Hcl 50 Mg Tablet PO 04/04/24 23:55 25 mg Q4H PRN Administration Pain
[2024-03-16] MEDS: CIPROFLOXACIN 500 MG TAB PO SCH (20:51)
[2024-03-17 06:26] LABS: Hematocrit (blood only) 22.8 % (37.0-47.0); Hemoglobin 7.5 g/dl (12.0-16.0); Mean Corpuscular Hemoglobin 29.1 pg (25.0-34.0); Mean Corpuscular Hgb Conc 32.9 g/dL (32.0-36.0); Mean Corpuscular Volume 88.4 fL (80.0-100.0); Mean Platelet Volume 12.2 fL (9.4-12.4); Platelet Count 49 K/uL (130-400); RDW Coefficient of Variation 15.7 % (11.5-14.5); RDW Standard Deviation 49.8 fL (36.4-46.3); Red Blood Count 2.58 M/uL (4.20-5.40); White Blood Count 1.29 K/ul (4.8-10.8)
[2024-03-17 06:43] LABS: BUN Creatinine Ratio 15.4 (10-20); Calcium 7.7 mg/dl (8.6-10.3); Creatinine Clr Calc Pharmacy 32.2 ml/min; Magnesium 1.4 mg/dl (1.7-2.4); Potassium 3.3 mmol/L (3.5-5.1)
[2024-03-17] MEDS: MAGNESIUM SULFATE / D5W 1 GM/100 ML BAG IV ONE (07:54)
[2024-03-17] MEDS: POTASSIUM CHLORIDE 20 MEQ/15 ML UDC PO SCH (08:50)
[2024-03-17] MEDS ORDERED: POTASSIUM CHLORIDE 20 MEQ/15 ML UDC PO SCH (09:00)
[2024-03-17] MEDS ORDERED: SODIUM CHLORIDE 0.9% 250 ML IV PRN (11:08)
--- NOTE | 2024-03-17 11:20 | Hospitalist Progress Note ---
Date of Service March 17, 2024 Assessment & Plan (1) Pancytopenia: Plan Ms. Huizar is a 73-year-old lady with complex medical history of PAF currently not on anticoagulation, HTN, GERD, CML undergoing chemotherapy, chronic pancytopenia, rheumatoid arthritis who was recently admitted at for about a month at [facility] for blast crisis and was also seen by communication equipment repairer during this stay for her acute on chronic CHF who is now admitted for pancytopenia. Patient was discharged from [facility] to rehab at [facility] where she was able to participate for about 2 weeks; however, op labs revealed hemoglobin 7.5 and platelets of 5 in outpatient lab draw. Patient was noted to be neutropenic, with loose stools and questionable cellulitis. Patient able to complete some treatment for CMML, however, her hospitalization was notably complicated. From a cardiac standpoint, she experienced a fib rvr, was started on daily lasix IV lasix with minimal improvement. Platelets on discharge were 30K and eliquis was discontinued. Patient with fluctuating transaminitis though to be medication related. Patient also treated for staph coag negative UTI and parotitis. Patient with "erythema nodosa lesions n left leg" per review of discharge summary on 02.26. Patient continued on Vanco and Unasyn until 02/22 after undergoing multiple tooth extractions, intensive infectious work up. Patient was to follow up with Dr. Reyes (Oncologist) for C3 AZA and C2 Justino Patient remained on IV lasix q6 with notable diuresis; however, further diuresis limited by hypotension and renal function. Patient transitioned to PO torsemide 03/16. Patient with KARLI 1.36, will hold aldactone and torsemide. Spoke to Dr. Cobos on phone, OP oncologist, who is assessing whether GCSF is next step for patient, gave update regarding clinical status and ongoing medical issues. Plan to discuss today to finalize if GSCF is appropriate. In interim, hgb at transfusion threshold, will given 1 UPRBC Working to replace electrolytes PO 2/2 tenuous volume status. 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 Reyes Transfuse to keep Platelets >10,000 (50K if bleeding), hgb >7.5 Last transfusion 03/11, now at 7.5 today--will transfuse 03/[address] Cobos (Oncologist) 03/16, discussing if GCSF is to be administ ered given prolonged suppression, repeat disucssion to be had today (Dr Auguste [phone]) Neutropenic precautions Continue posaconazole, ciprofloxacin and acyclovir PPX Monitor fever curve continue to hold Eliquis Continue to trend CBC, diff in am #KARLI multifactorial, fluctuating--patient with aggressive diuresis now s/p IV q6, transitioning to PO hold spironolactone and torsemide Will have to give lasix with transfusion Resume diuretic as tolerated, may have to adjust dosing (3xwk v prn) #BLE cellulitis in severe neutropenic patient *improved #Erythema nodosa, noted at OSH #Multiple pressure ulcers: right buttock, left buttock, coccygeal area POA 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 No purulent drainage noted. Ble venous doppler neg for DVT, Wound care evaled, recommended surgical evaluation -No surgical intervention at this time -Plan for santyl Hold PPX ciprofloxacin Continue with Dapto and cefepime, await final recs from ID -Currently day 7 of IV abx with above MRSA coverage EOT 03/15 will monitor fever curve s/p completion Spoke to wound care for decubitus ulcers: will start santyl on pressure ulcers Nystatin in groin #Volume overload, c/f Acute on chronic heart failure with preserved EF v iatrogenic/hypoalbuminemia Patient transfusion dependent at this time Replace electrolytes PO given concern for additional volume from IV replacement ECHO reviewed with mild LVH, EF 55-60%, grade II DDfx, pulm htn Monitor on telemetry Cardiology following closely -Holding on IV albumin and IV lasix 20mg q 6 due to hypotension at this time Discussing addition of PO diuretic v IV with Cards given tenuous volume status -Continue torsemide PO, monitor renal function -continue spironolactone 12.5mg to spare potassium, consider discontinuation if renal function up trends #Paroxysmal Atrial fibrillation Continue Metoprolol, hold parameters adjusted per Cards given issues with #Mild hypernatremia: Admitting sodium of 147. Resolved. #Diarrhea #norovirus gastroenteritis Supportive care D/c mag oxide given diarrhea today Monitor stool output, consider rectal tube if ongoing 2/2 wounds on buttock C diff negative #Electrolyte abnormalities [hypokalemia and hypomagnesemia]: Likely secondary to above Encourage po intake, PO replacement as able given concern for volume overload Other chronic medical conditions: Continue with/resume home meds as when able. PAF, patient NSR, currently not on anticoagulation due to thrombocytopenia. hypertension, BP on the lower side , metoprolol dose decreased at presentation, uptitrate as able towards home dose as needed. hx GERD Rheumatoid arthritis as per records DVT prophylaxis. SCDs Re: Thrombocytopenia DNR Patient daughter Ms. Alma Dillard, contact #[phone]. PT/OT ANA MARÍA izquierdo to assist w/ DC plan. Admission and Anticipated Discharge Date Admission Date: March 05, 2024 Subjective Patient tearful today, trying to take her pills on her own Denies any concerns but focused on not having help with meds Physical Exam Constitutional: chronically ill appearing woman, chewing on pill. Offered help, finally agreed Respiratory: normal respiratory effort, lungs clear to auscultation Cardiovascular: RRR, no murmur, no edema Skin: erythema and swelling on buttock much improved compared to imaging on 03/06, Results & Data Results & Data Vital Signs (Past 12 Hours) Vital Signs Temp Pulse Pulse Resp BP Pulse Ox O2 Del Method 03/17/24 08:09 37.1 C 76 20 102/53 L 98 Room Air 03/17/24 08:00 Room Air 03/17/24 07:40 81 03/17/24 02:26 36.9 C 78 16 111/58 L 100 Room Air 03/16/24 23:16 36.6 C 74 16 127/66 100 Room Air Laboratory Results Short CBC 03/17/24 Range/Units 05:48 WBC 1.29 L (4.8-10.8) K/ul Hgb 7.5 L (12.0-16.0) g/dl Hct 22.8 L (37.0-47.0) % Plt Count 49 L (130-400) K/uL BMP 03/17/24 05:48 Sodium 144 Potassium 3.3 L D Chloride 113 H Carbon Dioxide 25 BUN 21 Creatinine 1.36 H Glucose 82 Calcium 7.7 L Medications Administered Home Medications Medication Instructions Recorded Confirmed Last Taken acetaminophen 325 mg tablet 650 mg PO Q6H PRN Fever greater 01/27/24 03/05/24 Unknown (Tylenol) than 100/Pain acyclovir 400 mg tablet 400 mg PO BID 01/27/24 03/05/24 Unknown bisacodyl 10 mg rectal suppository 10 mg PA DIRECTED PRN 01/27/24 03/05/24 Unknown Constipation cholecalciferol (vitamin D3) 25 25 mcg PO QAM 01/27/24 03/05/24 Unknown mcg (1,000 unit) tablet ciprofloxacin HCl 500 mg tablet 500 mg PO BID 01/27/24 03/05/24 Unknown folic acid 1 mg tablet 1 mg PO QAM 01/27/24 03/05/24 Unknown furosemide 40 mg tablet 40 mg PO QAM 01/27/24 03/05/24 Unknown multivitamin 1 tab PO QAM 01/27/24 03/05/24 Unknown ondansetron 4 mg disintegrating 4 mg PO Q6H PRN NAUSEA/VOMITTING 01/27/24 03/05/24 Unknown tablet pantoprazole 40 mg tablet,delayed 40 mg PO DAILYBB 01/27/24 03/05/24 Unknown release posaconazole 100 mg tablet,delayed See Rx Instructions .Route .COMPLEX 01/27/24 03/05/24 Unknown release sodium phosphates 19 gram-7 118 ml PA DAILY PRN CONSTIPATION 01/27/24 03/05/24 Unknown gram/118 mL enema (Fleet Enema) Magic Mix See Rx Instructions .Route .COMPLEX 03/05/24 03/05/24 Unknown calcium carbonate 500 mg PO QDL 03/05/24 03/05/24 Unknown carbamide peroxide 6.5 % ear drops 5 drp otic (ear) BID 03/05/24 03/05/24 Unknown (Debrox) magnesium hydroxide 400 mg/5 mL 2,400 mg PO DAILY PRN Constipation 03/05/24 03/05/24 Unknown oral suspension (Milk of Magnlida) metoprolol succinate 100 mg 100 mg PO DAILY 03/05/24 03/05/24 Unknown capsule sprinkle, ext. release 24 hr polyvinyl alcohol 1.4 % eye drops 1 drp OPB Q8H Blepharitis 03/05/24 03/05/24 Unknown (Artificial Tears (polyvinyl alcohol)) potassium chloride 20 mEq/15 mL 60 meq PO Q12H 03/05/24 03/05/24 Unknown oral liquid Active Medications Generic Name Dose Route Start Last Admin Trade Name Freq PRN Reason Stop Dose Admin Acetaminophen 650 mg 03/05/24 23:54 03/16/24 16:25 Acetaminophen 325 Mg Tab PO 04/04/24 23:53 650 mg QID PRN Administration pain/fever Acyclovir 400 mg 03/06/24 09:00 03/17/24 08:51 Acyclovir 400 Mg Tab PO 04/05/24 08:59 400 mg BID LEONARDO Administration Artificial Tears 1 drops 03/06/24 04:00 03/17/24 03:11 Artificial Tears OP 04/05/24 03:59 Not Given Q8H LEONARDO Calcium/Vitamin D 2 tab 03/15/24 21:00 03/17/24 08:53 Calcium 600mg + Vit D 400 Iu Tab PO 04/14/24 20:59 2 tab BID LEONARDO Administration Cholestyramine Resin 4 gm 03/06/24 12:30 03/17/24 10:32 Cholestyramine Light 4 Gm Pkt PO 04/05/24 12:29 Not Given BID@1000,2200 LEONARDO Ciprofloxacin 500 mg 03/16/24 21:00 03/17/24 08:50 Ciprofloxacin 500 Mg Tab PO 04/15/24 20:59 500 mg BID LEONARDO Administration Protocol Diphenhydramine HCl 12.5 mg 03/06/24 17:46 03/12/24 09:50 Diphenhydramine 50 Mg/Ml Vial IV 04/05/24 17:45 12.5 mg Q6H PRN Administration Allergic Reaction Lactic Acid 1 gm 03/14/24 10:15 03/17/24 08:56 Ammonium Lactate 12% Lotion 225 Gm Btl EXT 04/13/24 10:14 1 gm BID LEONARDO Administration Lactobacillus Acidophilus 1,250 mg 03/06/24 10:30 03/17/24 08:52 Advanced Probiotic 625 Mg Capsule PO 04/05/24 10:29 1,250 mg DAILY LEONARDO Administration Loperamide HCl 2 mg 03/07/24 03:16 03/17/24 04:02 Loperamide Hcl 2 Mg Cap PO 04/06/24 03:15 2 mg UD PRN Administration Diarrhea Magnesium Chloride 128 mg 03/15/24 21:00 03/17/24 08:54 Magnesium Chloride W/Calcium 64mg Delayed Rel Tab PO 04/14/24 20:59 128 mg BID LEONARDO Administration Metoprolol Succinate 50 mg 03/08/24 09:00 03/17/24 08:51 Metoprolol Succ 50mg Ext Rel Tab PO 04/07/24 08:59 50 mg DAILY LEONARDO Administration Multivitamins 1 tab 03/06/24 09:00 03/17/24 08:54 Multivitamin Tab PO 04/05/24 08:59 1 tab QAM LEONARDO Administration Pantoprazole Sodium 40 mg 03/06/24 06:30 03/17/24 06:14 Pantoprazole 40 Mg Tab PO 04/05/24 06:29 40 mg DAILYBB LEONARDO Administration Posaconazole 3 each 03/11/24 09:00 03/17/24 08:56 Posaconazole PO 04/10/24 08:59 3 each Q24H LEONARDO Administration Potassium Chloride 40 meq 03/17/24 09:00 03/17/24 08:50 Potassium Chloride 20 Meq/15 Ml Udc PO 04/16/24 08:59 40 meq BID LEONARDO Administration Psyllium Hydrophilic Mucilloid 4 gm 03/13/24 21:00 03/17/24 10:32 Psyllium Or Guar Gum Fiber 4gm Packet PO 04/12/24 20:59 Not Given BID LEONARDO Spironolactone 12.5 mg 03/13/24 09:00 03/17/24 08:54 Spironolactone 12.5 Mg Tab PO 04/12/24 08:59 12.5 mg DAILY LEONARDO Administration Torsemide 20 mg 03/15/24 12:45 03/16/24 11:03 Torsemide 20 Mg Tab PO 04/14/24 12:44 20 mg QAM LEONARDO Administration Tramadol HCl 25 mg 03/05/24 23:56 03/17/24 10:52 Tramadol Hcl 50 Mg Tablet PO 04/04/24 23:55 25 mg Q4H PRN Administration Pain
[2024-03-17] MEDS: NYSTATIN POWDER 15GM BTL EXT SCH (12:18)
[2024-03-17] MEDS: FUROSEMIDE 40 MG/4 ML VIAL IV ONE (13:08)
[2024-03-17] MEDS: diphenhydrAMINE 2%/ZINC 0.1% CREAM 28.4GM TUBE EXT PRN (20:40)
[2024-03-18 07:21] LABS: Hematocrit (blood only) 26.5 % (37.0-47.0); Hemoglobin 8.7 g/dl (12.0-16.0); Mean Corpuscular Hemoglobin 28.6 pg (25.0-34.0); Mean Corpuscular Hgb Conc 32.8 g/dL (32.0-36.0); Mean Corpuscular Volume 87.2 fL (80.0-100.0); Mean Platelet Volume 12.2 fL (9.4-12.4); Platelet Count 56 K/uL (130-400); RDW Coefficient of Variation 16.8 % (11.5-14.5); RDW Standard Deviation 50.9 fL (36.4-46.3); Red Blood Count 3.04 M/uL (4.20-5.40); White Blood Count 1.53 K/ul (4.8-10.8)
[2024-03-18 07:44] LABS: Calcium 7.7 mg/dl (8.6-10.3); Creatinine Clr Calc Pharmacy 29.2 ml/min; Magnesium 1.7 mg/dl (1.7-2.4); Phosphorus 3.7 mg/dl (2.5-4.9); Potassium 3.6 mmol/L (3.5-5.1)
--- NOTE | 2024-03-18 15:47 | Hospitalist Progress Note ---
Date of Service March 18, 2024 Assessment & Plan (1) Pancytopenia: Plan Ms. Huizar is a 73-year-old lady with complex medical history of PAF currently not on anticoagulation, HTN, GERD, CML undergoing chemotherapy, chronic pancytopenia, rheumatoid arthritis who was recently admitted at for about a month at [facility] for blast crisis and was also seen by bisque ware dipper during this stay for her acute on chronic CHF who is now admitted for pancytopenia. Patient was discharged from [facility] to rehab at [facility] where she was able to participate for about 2 weeks; however, op labs revealed hemoglobin 7.5 and platelets of 5 in outpatient lab draw. Patient was noted to be neutropenic, with loose stools and questionable cellulitis. Patient able to complete some treatment for CMML, however, her hospitalization was notably complicated. From a cardiac standpoint, she experienced a fib rvr, was started on daily lasix IV lasix with minimal improvement. Platelets on discharge were 30K and eliquis was discontinued. Patient with fluctuating transaminitis though to be medication related. Patient also treated for staph coag negative UTI and parotitis. Patient with "erythema nodosa lesions n left leg" per review of discharge summary on 02.26. Patient continued on Vanco and Unasyn until 02/22 after undergoing multiple tooth extractions, intensive infectious work up. As per prior hospitalist: Patient was to follow up with Dr. Reyes (Oncologist) for C3 AZA and C2 Justino Patient remained on IV lasix q6 with notable diuresis; however, further diuresis limited by hypotension and renal function. Patient transitioned to PO torsemide 03/16. Patient with KARLI 1.36, will hold aldactone and torsemide. Spoke to Dr. Cobos on phone, OP oncologist, who is assessing whether GCSF is next step for patient, gave update regarding clinical status and ongoing medical issues. Plan to discuss today to finalize if GSCF is appropriate. In interim, hgb at transfusion threshold, will given 1 UPRBC Working to replace electrolytes PO due to tenuous volume status. 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 Reyes Transfuse to keep Platelets >10,000 (50K if bleeding), hgb >7.5 --S/P 5 units PRBCs --Prior hospitalist discussed with Dr. Cobos (Oncologist) 03/16, discussing if GCSF is to be administered given prolonged suppression (Dr Auguste [phone]) Discussed with on 03/18/24: If family agreeable, plan to give Neupogen 480 mcg on or Saturday if ANC <1000 to minimize transfusions Continue Neutropenic precautions Continue posaconazole, ciprofloxacin and Acyclovir PPX Resume Eliquis as able Hb 8.7, Platelets 56K Monitor CBC KARLI multifactorial, fluctuating--patient with aggressive diuresis Cr 1.5 today Diuretics on hold Monitor volume status Resume torsemide, Aldactone as able Diuretics may have to adjust dosing (3xwk v prn) B/ LE Cellulitis in severe neutropenic patient--improved Erythema nodosa, noted at OSH Multiple pressure ulcers: right buttock, left buttock, coccygeal area POA 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 No purulent drainage noted. --Venous Doppler: Limited assessment as described, not thrombosis as visualized --Appreciate Wound care, Surgery evals: No surgical intervention at this time -Continue santyl Received 7 days course of Dapto and cefepime, appreciate ID input Resumed chronic suppressive meds ciprofloxacin, acyclovir Volume overload, c/f Acute on chronic heart failure with preserved EF v iatrogenic/hypoalbuminemia Patient transfusion dependent at this time Replace electrolytes PO given concern for additional volume from IV replacement ECHO reviewed with mild LVH, EF 55-60%, grade II DDfx, pulm htn Appreciate cardiology input IV diuretics discontinued Resume p.o. diuretics as able Monitor renal function, electrolytes, volume status Paroxysmal Atrial fibrillation Continue Metoprolol Mild hypernatremia: Sodium 148 today Monitor Diarrhea Norovirus gastroenteritis Supportive care D/c mag oxide given diarrhea Stool studies positive for norovirus, negative for C. difficile Diarrhea slowly improving Electrolyte abnormalities [hypokalemia and hypomagnesemia]: Likely secondary to above Encourage po intake, PO replacement as able given concern for volume overload Other chronic medical conditions: Continue with/resume home meds as when able. PAF, patient NSR, currently not on anticoagulation due to thrombocytopenia. Hypertension, BP on the lower side , metoprolol dose decreased at presentation GERD Rheumatoid arthritis as per records DVT Px: SCDs Re: Thrombocytopenia Code Status DNR/DNI Family Contact: Patient daughter Ms. Alma Dillard, contact #[phone]. Disposition PT/OT prior to discharge Admission and Anticipated Discharge Date Admission Date: March 05, 2024 Subjective Patient is seen and examined at bedside Diarrhea slowly improving Had semiformed bowel movement today Feels intermittently anxious No other complaints today Review of Systems Review of Systems: All systems reviewed & are unremarkable except as noted in Subjective Physical Exam Physical Exam: Physical Exam: Vitals signs as noted above General Appearance:Thin, frail, no apparent distress, chronic ill appearing Head: normocephalic, Atraumatic Eyes: normal inspection, EOMI Neck: supple, Trachea midline Respiratory/Chest: Normal breath sounds, CTA, No accessory muscle use Cardiovascular: S1, S2, No murmur Abdomen/GI:Soft, Non tender, Bowel sounds present Extremities/Musculoskeletal:normal inspection, 1-2+ edema Neurologic/Psych:AAOX3, grossly no focal neurological deficits Skin: normal color, warm Results & Data Results & Data Vital Signs (Past 12 Hours) Vital Signs Temp Pulse Pulse Resp BP Pulse Ox O2 Del Method 03/18/24 15:41 36.6 C 58 L 17 106/61 98 Room Air 03/18/24 14:38 61 03/18/24 10:31 36.7 C 60 17 100/52 L 98 Room Air 03/18/24 08:48 36.7 C 63 17 113/64 98 Room Air Laboratory Results Short CBC 03/18/24 Range/Units 06:51 WBC 1.53 L (4.8-10.8) K/ul Hgb 8.7 L (12.0-16.0) g/dl Hct 26.5 L (37.0-47.0) % Plt Count 56 L (130-400) K/uL BMP 03/18/24 06:51 Sodium 148 H Potassium 3.6 Chloride 114 H Carbon Dioxide 27 BUN 21 Creatinine 1.50 H Glucose 79 Calcium 7.7 L
[2024-03-19 07:00] LABS: Hematocrit (blood only) 27.3 % (37.0-47.0); Hemoglobin 8.6 g/dl (12.0-16.0); Mean Corpuscular Hemoglobin 28.2 pg (25.0-34.0); Mean Corpuscular Hgb Conc 31.5 g/dL (32.0-36.0); Mean Corpuscular Volume 89.5 fL (80.0-100.0); RDW Coefficient of Variation 17.3 % (11.5-14.5); RDW Standard Deviation 52.3 fL (36.4-46.3); Red Blood Count 3.05 M/uL (4.20-5.40)
[2024-03-19 07:01] LABS: Mean Platelet Volume 11.6 fL (9.4-12.4); Platelet Count 68 K/uL (130-400)
[2024-03-19 07:02] LABS: Calcium 7.9 mg/dl (8.6-10.3); Creatinine Clr Calc Pharmacy 25.1 ml/min; Magnesium 1.7 mg/dl (1.7-2.4); Potassium 4.8 mmol/L (3.5-5.1)
[2024-03-19 07:24] LABS: White Blood Count 1.62 K/ul (4.8-10.8)
[2024-03-19 08:25] LABS: ANC (manual) 0.84 K/uL (1.4-6.5); Blast # (manual) 0.08 K/uL (0-0); Blast Cells % (manual) 5 %; Dohle Bodies 1+; Eosinophils # (manual) 0.02 K/uL (0-0.50); Eosinophils % (manual) 1 %; Lymphocytes % (manual) 37 %; Metamyelocytes # (manual) 0.03 K/uL (0-0); Metamyelocytes % (manual) 2 %; Monocytes # (manual) 0.05 K/uL (0.11-0.59); Monocytes % (manual) 3 %; Neutrophils # (manual) 0.84 K/uL (1.40-6.50); Neutrophils % (manual) 52 %; Polychromasia 1+
[2024-03-19] MEDS: LACTATED RINGER'S 500 ML IV ONE (12:32)
--- NOTE | 2024-03-19 15:47 | Hospitalist Progress Note ---
Date of Service March 19, 2024 Assessment & Plan (1) Pancytopenia: Plan Ms. Huizar is a 73-year-old lady with complex medical history of PAF currently not on anticoagulation, HTN, GERD, CML undergoing chemotherapy, chronic pancytopenia, rheumatoid arthritis who was recently admitted at for about a month at [facility] for blast crisis and was also seen by adoption social worker during this stay for her acute on chronic CHF who is now admitted for pancytopenia. Patient was discharged from [facility] to rehab at [facility] where she was able to participate for about 2 weeks; however, op labs revealed hemoglobin 7.5 and platelets of 5 in outpatient lab draw. Patient was noted to be neutropenic, with loose stools and questionable cellulitis. Patient able to complete some treatment for CMML, however, her hospitalization was notably complicated. From a cardiac standpoint, she experienced a fib rvr, was started on daily lasix IV lasix with minimal improvement. Platelets on discharge were 30K and eliquis was discontinued. Patient with fluctuating transaminitis though to be medication related. Patient also treated for staph coag negative UTI and parotitis. Patient with "erythema nodosa lesions n left leg" per review of discharge summary on 02.26. Patient continued on Vanco and Unasyn until 02/22 after undergoing multiple tooth extractions, intensive infectious work up. As per prior hospitalist: Patient was to follow up with Dr. Reyes (Oncologist) for C3 AZA and C2 Justino Patient remained on IV lasix q6 with notable diuresis; however, further diuresis limited by hypotension and renal function. Patient transitioned to PO torsemide 03/16. Patient with KARLI 1.36, will hold aldactone and torsemide. Spoke to Dr. Cobos on phone, OP oncologist, who is assessing whether GCSF is next step for patient, gave update regarding clinical status and ongoing medical issues. Plan to discuss today to finalize if GSCF is appropriate. In interim, hgb at transfusion threshold, will given 1 UPRBC Working to replace electrolytes PO due to tenuous volume status. 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 Reyes Transfuse to keep Platelets >10,000 (50K if bleeding), hgb >7.5 --S/P 5 units PRBCs --Prior hospitalist discussed with Dr. Cobos (Oncologist) 03/16, discussing if GCSF is to be administered given prolonged suppression (Dr Auguste [phone]) Discussed with : Patient/Family prefers to Avoid Neupogen Continue Neutropenic precautions ANC: 840 today Continue posaconazole, ciprofloxacin and Acyclovir PPX Resume Eliquis as able Monitor CBC Pancytopenia slowly improving KARLI multifactorial, fluctuating--patient with aggressive diuresis/GI losses from diarrhea Cr 1.7 today Diuretics on hold Monitor volume status Resume torsemide, Aldactone as able Diuretics may have to adjust dosing (3xwk v prn) Will give gentle fluids today B/ LE Cellulitis in severe neutropenic patient--improved Erythema nodosa, noted at OSH Multiple pressure ulcers: right buttock, left buttock, coccygeal area POA 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 No purulent drainage noted. --Venous Doppler: Limited assessment as described, not thrombosis as visualized --Appreciate Wound care, Surgery evals: No surgical intervention at this time -Continue santyl Received 7 days course of Dapto and cefepime, appreciate ID input Resumed chronic suppressive meds ciprofloxacin, acyclovir Volume overload, c/f Acute on chronic heart failure with preserved EF v iatrogenic/hypoalbuminemia Patient transfusion dependent at this time Replace electrolytes PO given concern for additional volume from IV replacement ECHO reviewed with mild LVH, EF 55-60%, grade II DDfx, pulm htn Appreciate cardiology input IV diuretics discontinued Resume p.o. diuretics as able Monitor renal function, electrolytes, volume status Stable volume status Paroxysmal Atrial fibrillation Continue Metoprolol Mild hypernatremia: Sodium 147 today Monitor Diarrhea Norovirus gastroenteritis Supportive care D/c mag oxide given diarrhea Stool studies positive for norovirus, negative for C. difficile Diarrhea slowly improving Electrolyte abnormalities [hypokalemia and hypomagnesemia]: Likely secondary to above Encourage po intake, PO replacement as able given concern for volume overload Other chronic medical conditions: Continue with/resume home meds as when able. PAF, patient NSR, currently not on anticoagulation due to thrombocytopenia. Hypertension, BP on the lower side , metoprolol dose decreased at presentation GERD Rheumatoid arthritis as per records DVT Px: SCDs Re: Thrombocytopenia Code Status DNR/DNI Family Contact: Patient daughter Ms. Alma Dillard, contact #[phone]. Disposition SNF as able Admission and Anticipated Discharge Date Admission Date: March 05, 2024 Subjective Patient is seen and examined at bedside States feeling better today Had 1 loose BM overnight No new complaints Denies any chest pain, dyspnea, nausea, vomiting, abdominal pain Review of Systems Review of Systems: All systems reviewed & are unremarkable except as noted in Subjective Physical Exam Physical Exam: Physical Exam: Vitals signs as noted above General Appearance:Thin, frail, no apparent distress, chronic ill appearing Head: normocephalic, Atraumatic Eyes: normal inspection, EOMI Neck: supple, Trachea midline Respiratory/Chest: Normal breath sounds, CTA, No accessory muscle use Cardiovascular: S1, S2, No murmur Abdomen/GI:Soft, Non tender, Bowel sounds present Extremities/Musculoskeletal:normal inspection, 1-2+ edema Neurologic/Psych:AAOX3, grossly no focal neurological deficits Skin: normal color, warm Results & Data Results & Data Vital Signs (Past 12 Hours) Vital Signs Temp Pulse Pulse Resp BP BP Pulse Ox 03/19/24 15:00 36.8 C 73 20 129/68 95 03/19/24 10:32 36.5 C 62 17 105/60 100 03/19/24 08:00 63 03/19/24 08:00 03/19/24 08:00 36.7 C 70 20 130/69 95 O2 Del Method 03/19/24 15:00 Room Air 03/19/24 10:32 Room Air 03/19/24 08:00 03/19/24 08:00 Room Air 03/19/24 08:00 Room Air Laboratory Results Short CBC 03/19/24 Range/Units 06:04 WBC 1.62 L (4.8-10.8) K/ul Hgb 8.6 L (12.0-16.0) g/dl Hct 27.3 L (37.0-47.0) % Plt Count 68 L (130-400) K/uL [place] 03/19/24 06:04 Sodium 147 H Potassium 4.8 D Chloride 116 H Carbon Dioxide 27 BUN 26 H Creatinine 1.73 H Glucose 74 Calcium 7.9 L
[2024-03-19] MEDS: CIPROFLOXACIN 500 MG TAB PO SCH (20:44)
[2024-03-20 06:48] LABS: Hematocrit (blood only) 26.8 % (37.0-47.0); Hemoglobin 8.4 g/dl (12.0-16.0); Mean Corpuscular Hemoglobin 28.5 pg (25.0-34.0); Mean Corpuscular Hgb Conc 31.3 g/dL (32.0-36.0); Mean Corpuscular Volume 90.8 fL (80.0-100.0); Mean Platelet Volume 12.2 fL (9.4-12.4); Platelet Count 69 K/uL (130-400); RDW Coefficient of Variation 17.3 % (11.5-14.5); RDW Standard Deviation 52.4 fL (36.4-46.3); Red Blood Count 2.95 M/uL (4.20-5.40)
[2024-03-20 07:06] LABS: BUN Creatinine Ratio 16.5 (10-20); Calcium 7.9 mg/dl (8.6-10.3); Creatinine Clr Calc Pharmacy 27.3 ml/min; Potassium 4.2 mmol/L (3.5-5.1)
[2024-03-20 07:27] LABS: White Blood Count 1.63 K/ul (4.8-10.8)
[2024-03-20 07:37] LABS: ALC (manual) 0.86 K/uL (1.2-3.4); ANC (manual) 0.65 K/uL (1.4-6.5); Blast # (manual) 0.03 K/uL (0-0); Blast Cells % (manual) 2 %; Dohle Bodies 1+; Eosinophils # (manual) 0.02 K/uL (0-0.50); Eosinophils % (manual) 1 %; Lymphocytes # (manual) 0.86 K/uL (1.2-3.4); Lymphocytes % (manual) 53 %; Monocytes # (manual) 0.07 K/uL (0.11-0.59); Monocytes % (manual) 4 %; Neutrophils # (manual) 0.65 K/uL (1.40-6.50); Neutrophils % (manual) 40 %; Polychromasia 1+
[2024-03-20] MEDS: hydrOXYzine HCl 10 MG TAB PO PRN (10:27)
--- NOTE | 2024-03-20 17:37 | Hospitalist Progress Note ---
Date of Service March 20, 2024 Assessment & Plan (1) Pancytopenia: Plan Ms. Huizar is a 73-year-old lady with complex medical history of PAF currently not on anticoagulation, HTN, GERD, CML undergoing chemotherapy, chronic pancytopenia, rheumatoid arthritis who was recently admitted at for about a month at [facility] for blast crisis and was also seen by production checker during this stay for her acute on chronic CHF who is now admitted for pancytopenia. Patient was discharged from [facility] to rehab at [facility] where she was able to participate for about 2 weeks; however, op labs revealed hemoglobin 7.5 and platelets of 5 in outpatient lab draw. Patient was noted to be neutropenic, with loose stools and questionable cellulitis. Patient able to complete some treatment for CMML, however, her hospitalization was notably complicated. From a cardiac standpoint, she experienced a fib rvr, was started on daily lasix IV lasix with minimal improvement. Platelets on discharge were 30K and eliquis was discontinued. Patient with fluctuating transaminitis though to be medication related. Patient also treated for staph coag negative UTI and parotitis. Patient with "erythema nodosa lesions n left leg" per review of discharge summary on 02.26. Patient continued on Vanco and Unasyn until 02/22 after undergoing multiple tooth extractions, intensive infectious work up. As per prior hospitalist: Patient was to follow up with Dr. Reyes (Oncologist) for C3 AZA and C2 Justino Patient remained on IV lasix q6 with notable diuresis; however, further diuresis limited by hypotension and renal function. Patient transitioned to PO torsemide 03/16. Patient with KARLI 1.36, will hold aldactone and torsemide. Spoke to Dr. Cobos on phone, OP oncologist, who is assessing whether GCSF is next step for patient, gave update regarding clinical status and ongoing medical issues. Plan to discuss today to finalize if GSCF is appropriate. In interim, hgb at transfusion threshold, will given 1 UPRBC Working to replace electrolytes PO due to tenuous volume status. 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 Reyes Transfuse to keep Platelets >10,000 (50K if bleeding), hgb >7.5 --S/P 5 units PRBCs --Prior hospitalist discussed with Dr. Cobos (Oncologist) 03/16, discussing if GCSF is to be administered given prolonged suppression (Dr Auguste [phone]) Discussed with : Patient/Family prefers to Avoid Neupogen Continue Neutropenic precautions ANC: 650 today. Tried to reach Dr. Auguste today: No answer, left voicemail Continue posaconazole, ciprofloxacin and Acyclovir PPX Continue to hold Eliquis due to thrombocytopenia Pancytopenia slowly improving Continue to monitor CBC daily KARLI multifactorial, fluctuating--patient with aggressive diuresis/GI losses from diarrhea Cr 1.5 today Diuretics on hold Monitor volume status Resume torsemide, Aldactone as able Diuretics may have to adjust dosing (3xwk v prn) IV fluids as needed Ongoing diarrhea, loperamide as needed B/ LE Cellulitis in severe neutropenic patient--improved Erythema nodosa, noted at OSH Multiple pressure ulcers: right buttock, left buttock, coccygeal area POA 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 No purulent drainage noted. --Venous Doppler: Limited assessment as described, not thrombosis as visualized --Appreciate Wound care, Surgery evals: No surgical intervention at this time -Continue santyl Received 7 days course of Dapto and cefepime, appreciate ID input Resumed chronic suppressive meds ciprofloxacin, acyclovir Volume overload, c/f Acute on chronic heart failure with preserved EF v iatrogenic/hypoalbuminemia Patient transfusion dependent at this time Replace electrolytes PO given concern for additional volume from IV replacement ECHO reviewed with mild LVH, EF 55-60%, grade II DDfx, pulm htn Appreciate cardiology input IV diuretics discontinued Resume p.o. diuretics as able Monitor renal function, electrolytes, volume status Currently clinically dehydrated Paroxysmal Atrial fibrillation Continue Metoprolol Currently not on anticoagulation due to thrombocytopenia Mild hypernatremia: Sodium 148 today Monitor Diarrhea Norovirus gastroenteritis Supportive care D/c mag oxide given diarrhea Stool studies positive for norovirus, negative for C. difficile Still having diarrhea Loperamide as needed Electrolyte abnormalities [hypokalemia and hypomagnesemia]: Likely secondary to above Encourage po intake, PO replacement as able Other chronic medical conditions: Continue with/resume home meds as when able. PAF, patient NSR, currently not on anticoagulation due to thrombocytopenia. Hypertension, BP on the lower side , metoprolol dose decreased at presentation GERD Rheumatoid arthritis as per records DVT Px: SCDs Re: Thrombocytopenia Code Status DNR/DNI Family Contact: Patient daughter Ms. Alma Dillard, contact #[phone]. Disposition SNF as able Admission and Anticipated Discharge Date Admission Date: March 05, 2024 Subjective Patient is seen and examined at bedside Continues to have loose BMs today Also reports nausea but no vomiting Discussed with patient's family at bedside Reports generalized weakness PT today Denies any chest pain, dyspnea, nausea, vomiting, abdominal pain Review of Systems Review of Systems: All systems reviewed & are unremarkable except as noted in Subjective Physical Exam Physical Exam: Physical Exam: Vitals signs as noted above General Appearance:Thin, frail, no apparent distress, chronic ill appearing Head: normocephalic, Atraumatic Eyes: normal inspection, EOMI Neck: supple, Trachea midline Respiratory/Chest: Normal breath sounds, CTA, No accessory muscle use Cardiovascular: S1, S2, No murmur Abdomen/GI:Soft, Non tender, Bowel sounds present Extremities/Musculoskeletal:normal inspection, 1-2+ edema Neurologic/Psych:AAOX3, grossly no focal neurological deficits Skin: normal color, warm Results & Data Results & Data Vital Signs (Past 12 Hours) Vital Signs Temp Pulse Pulse Resp BP Pulse Ox O2 Del Method 03/20/24 15:54 60 03/20/24 14:40 36.6 C 60 16 129/64 99 Room Air 03/20/24 10:53 68 17 157/72 H 99 Room Air 03/20/24 08:00 66 03/20/24 07:44 36.5 C 67 18 142/71 H 100 Room Air Laboratory Results Short CBC 03/20/24 Range/Units 06:30 WBC 1.63 L (4.8-10.8) K/ul Hgb 8.4 L (12.0-16.0) g/dl Hct 26.8 L (37.0-47.0) % Plt Count 69 L (130-400) K/uL [facility] 03/20/24 06:30 Sodium 148 H Potassium 4.2 Chloride 118 H Carbon Dioxide 25 BUN 26 H Creatinine 1.58 H Glucose 80 Calcium 7.9 L
[2024-03-21 07:09] LABS: BUN Creatinine Ratio 17.2 (10-20); Calcium 7.9 mg/dl (8.6-10.3); Creatinine Clr Calc Pharmacy 28.6 ml/min; Magnesium 1.6 mg/dl (1.7-2.4)
[2024-03-21 07:54] LABS: Hematocrit (blood only) 27.1 % (37.0-47.0); Hemoglobin 8.6 g/dl (12.0-16.0); Mean Corpuscular Hemoglobin 29.4 pg (25.0-34.0); Mean Corpuscular Hgb Conc 31.7 g/dL (32.0-36.0); Mean Corpuscular Volume 92.5 fL (80.0-100.0); Mean Platelet Volume 11.9 fL (9.4-12.4); Platelet Count 75 K/uL (130-400); RDW Coefficient of Variation 17.3 % (11.5-14.5); RDW Standard Deviation 53.1 fL (36.4-46.3); Red Blood Count 2.93 M/uL (4.20-5.40)
[2024-03-21 07:55] LABS: ALC (manual) 0.72 K/uL (1.2-3.4); ANC (manual) 1.08 K/uL (1.4-6.5); Basophils # (manual) 0.02 K/uL (0-0.2); Basophils % (manual) 1 %; Blast # (manual) 0.06 K/uL (0-0); Blast Cells % (manual) 3 %; Lymphocytes # (manual) 0.72 K/uL (1.2-3.4); Lymphocytes % (manual) 38 %; Monocytes # (manual) 0.02 K/uL (0.11-0.59); Monocytes % (manual) 1 %; Neutrophils # (manual) 1.08 K/uL (1.40-6.50); Neutrophils % (manual) 57 %; RBC Morphology Unremarkable
[2024-03-21] MEDS: D5W AND LACTATED RINGERS 1,000 ML IV ONE (09:50)
[2024-03-21] MEDS: NYSTATIN SUSP 500,000 U/5 ML UDC PO SCH (13:13)
--- NOTE | 2024-03-21 15:44 | Hospitalist Progress Note ---
Date of Service March 21, 2024 Assessment & Plan (1) Pancytopenia: Plan Ms. Huizar is a 73-year-old lady with complex medical history of PAF currently not on anticoagulation, HTN, GERD, CML undergoing chemotherapy, chronic pancytopenia, rheumatoid arthritis who was recently admitted at for about a month at [facility] for blast crisis and was also seen by tube cleaner during this stay for her acute on chronic CHF who is now admitted for pancytopenia. As per prior hospitalist: Patient was discharged from [facility] to rehab at [facility] where she was able to participate for about 2 weeks; however, op labs revealed hemoglobin 7.5 and platelets of 5 in outpatient lab draw. Patient was noted to be neutropenic, with loose stools and questionable cellulitis. Patient able to complete some treatment for CMML, however, her hospitalization was notably complicated. From a cardiac standpoint, she experienced a fib rvr, was started on daily lasix IV lasix with minimal improvement. Platelets on discharge were 30K and eliquis was discontinued. Patient with fluctuating transaminitis though to be medication related. Patient also treated for staph coag negative UTI and parotitis. Patient with "erythema nodosa lesions n left leg" per review of discharge summary on 02.26. Patient continued on Vanco and Unasyn until 02/22 after undergoing multiple tooth extractions, intensive infectious work up. 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 Patient s/p hydrea for cytoreduction, s/p c2 Aza, and completed 14 days venetoclax Double lumen PICC 02/[address] Reyes Transfuse to keep Platelets >10,000 (50K if bleeding), hgb >7.5 --S/P 5 units PRBCs --Prior hospitalist discussed with Dr. Cobos (Oncologist) 03/16, discussing if GCSF is to be administered given prolonged suppression (Dr Auguste [phone]) Discussed with : Patient/Family prefers to Avoid Neupogen Continue Neutropenic precautions Neutropenia slowly improving ANC> 1000 today Continue posaconazole, ciprofloxacin and Acyclovir PPX Continue to hold Eliquis due to thrombocytopenia Pancytopenia continues to improve Continue to monitor CBC daily Needs follow-up with oncology on discharge KARLI multifactorial, fluctuating--patient with aggressive diuresis/GI losses from diarrhea Cr 1.5 today Diuretics on hold Monitor volume status Resume torsemide, Aldactone as able Diuretics may have to adjust dosing (3xwk v prn) IV fluids as needed Ongoing diarrhea, loperamide as needed B/ LE Cellulitis in severe neutropenic patient--improved Erythema nodosa, noted at OSH Multiple pressure ulcers: right buttock, left buttock, coccygeal area POA 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 No purulent drainage noted. --Venous Doppler: Limited assessment as described, not thrombosis as visualized --Appreciate Wound care, Surgery evals: No surgical intervention at this time -Continue santyl Received 7 days course of Dapto and cefepime, appreciate ID input Resumed chronic suppressive meds ciprofloxacin, acyclovir Volume overload, c/f Acute on chronic heart failure with preserved EF v iatrogenic/hypoalbuminemia Patient transfusion dependent at this time Replace electrolytes PO given concern for additional volume from IV replacement ECHO reviewed with mild LVH, EF 55-60%, grade II DDfx, pulm htn Appreciate cardiology input IV diuretics discontinued Resume p.o. diuretics as able Monitor renal function, electrolytes, volume status Currently clinically dehydrated Oral thrush Started on nystatin Paroxysmal Atrial fibrillation Continue Metoprolol Currently not on anticoagulation due to thrombocytopenia Mild hypernatremia: Sodium 147 today Monitor Will give gentle IV fluids today Diarrhea Norovirus gastroenteritis Supportive care D/c mag oxide given diarrhea Stool studies positive for norovirus, negative for C. difficile Still having diarrhea Loperamide as needed Check CT abdomen And cholestyramine Electrolyte abnormalities [hypokalemia and hypomagnesemia]: Likely secondary to above Encourage po intake, PO replacement as able Other chronic medical conditions: Continue with/resume home meds as when able. PAF, patient NSR, currently not on anticoagulation due to thrombocytopenia. Hypertension, BP on the lower side , metoprolol dose decreased at presentation GERD Rheumatoid arthritis as per records DVT Px: SCDs Re: Thrombocytopenia Code Status DNR/DNI Family Contact: Patient daughter Ms. Alma Dillard, contact #[phone]. Disposition SNF as able Admission and Anticipated Discharge Date Admission Date: March 05, 2024 Subjective Patient is seen and examined at bedside Subjectively feels better Still having loose BMs States that she is eating better Noted oral thrush Reports some soreness at perianal region Denies any chest pain, dyspnea, nausea, vomiting, abdominal pain Review of Systems Review of Systems: All systems reviewed & are unremarkable except as noted in Subjective Physical Exam Physical Exam: Physical Exam: Vitals signs as noted above General Appearance:Thin, frail, no apparent distress, chronic ill appearing Head: normocephalic, Atraumatic Eyes: normal inspection, EOMI Neck: supple, Trachea midline Respiratory/Chest: Normal breath sounds, CTA, No accessory muscle use Cardiovascular: S1, S2, No murmur Abdomen/GI:Soft, Non tender, Bowel sounds present Extremities/Musculoskeletal:normal inspection, 1-2+ edema Neurologic/Psych:AAOX3, grossly no focal neurological deficits Skin: normal color, warm Results & Data Results & Data Vital Signs (Past 12 Hours) Vital Signs Temp Pulse Resp BP Pulse Ox O2 Del Method 03/21/24 15:06 36.5 C 62 18 126/63 96 Room Air 03/21/24 10:43 36.4 C L 57 L 16 144/63 H 97 Room Air 03/21/24 07:04 36.5 C 60 18 146/59 H 96 Room Air Laboratory Results Short CBC 03/21/24 Range/Units 06:10 WBC 1.90 L (4.8-10.8) K/ul Hgb 8.6 L (12.0-16.0) g/dl Hct 27.1 L (37.0-47.0) % Plt Count 75 L (130-400) K/uL [facility] 03/21/24 06:10 Sodium 150 H Potassium 4.0 Chloride 119 H Carbon Dioxide 27 BUN 26 H Creatinine 1.51 H Glucose 75 Calcium 7.9 L
[2024-03-21] MEDS: CHOLESTYRAMINE LIGHT 4 GM PKT PO SCH (16:26)
[2024-03-21] MEDS: LOPERAMIDE HCL 2 MG CAP PO PRN (18:18)
--- NOTE | 2024-03-21 19:02 | CT Scan Report ---
CT abd pelvis wo con CLINICAL HISTORY: Diarrhea TECHNIQUE: Helical axial images of the abdomen and pelvis were obtained. Automated dose lowering tech niques and/or adjustment according to patient size were utilized for this exam. This exam was perfor med without intravenous contrast. CT DOSE: 1107.84 mGy.cm COMPARISON: None available at the time of this dictation. FINDINGS: Lower chest: Cardiomegaly is partially visualized. Relative hypodensity of the blood pool is seen co mpatible with anemia. Liver: Unremarkable. No focal lesions are seen. Gallbladder and biliary tree: Cholelithiasis is seen without evidence of cholecystitis. No intra- or extrahepatic biliary ductal dilation. Pancreas: Unremarkable, no focal lesions. Spleen: Calcifications are noted in the spleen compatible with prior granulomatous disease. Adrenals: Left adrenal nodule is seen. Kidneys and ureters: Unremarkable. Bladder: Scott catheter is seen. Reproductive organs: Unremarkable. Bowel: There is thickening of the descending and proximal sigmoid colon is seen with surrounding fat stranding. Lymph nodes Retroperitoneal: Unremarkable. Pelvic: Unremarkable. Mesenteric: Unremarkable. Peritoneum: Normal. Vessels: Unremarkable. Abdominal wall: Unremarkable. Bones: Right hip arthroplasty is seen. Degenerative changes are seen in the spine and left hip. IMPRESSION: There is thickening of the wall of the descending and proximal sigmoid colon compatible with a nonspe cific colitis. ACT 112: Negative or not required by law. Electronically signed by: Manuel Guerra M.D. 03/21/2024 7:01 PM
[2024-03-22 06:23] LABS: BUN Creatinine Ratio 14.6 (10-20); Calcium 7.7 mg/dl (8.6-10.3); Creatinine Clr Calc Pharmacy 31.5 ml/min; Magnesium 1.6 mg/dl (1.7-2.4); Potassium 3.7 mmol/L (3.5-5.1)
[2024-03-22] MEDS: LACTATED RINGER'S 1,000 ML IV ONE (09:43)
[2024-03-22] MEDS: PROMETHAZINE 6.25 MG/50.25 ML BAG IV PRN (09:45)
--- NOTE | 2024-03-22 10:45 | Gastrointestinal Consultation ---
Date of Consultation March 22, 2024 Assessment & Plan (1) Diarrhea: She has nausea and vomiting but it doesn't seem to be a signifcant problem, having only occurred four times in this hospitalization. I do suspect it is related to her primary problem. I would treat her empirically for acid diseases as you are doing with pantoprazole and also use symptomatic therapy. I would approach her diarrhea from the same avenue. I would treat her symptomatically with cholestyramine and periodic imodium. I suspect her diarrhea related to her primary problem as well. I don't think colonoscopy would be appropriate at this time given all she has been through. She did have colonoscopy last year so we can eliminate issues such as malignancy contributing to her problems. 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 She was admitted almost three weeks ago with pancytopenia. She has battled with vomiting she says--four times since she was admitted. She drank milk this morning and vomited a "small amount of mucus". She denies abdominal pain. She does say it is vomiting and not free reflux/regurgitation. She has also been battling diarrhea. She was unable to control it for a while but imodium recently helped her and it is not so much of an issue. On 03/06 she was positive for norovirus. Recent stool for c. diff was negative. She does not have abdominal pain with her diarrhea either. CT scan yesterday suggested left sided colitis. She still has pancytopenia but her worrisome neutropenia has improved. She does admit to having had EGD and colonoscopy last year by [facility] and nothing was found. Allergies Allergy/AdvReac Type Severity Reaction Status Date / Time vancomycin Allergy Mild Rash Verified 03/06/24 22:21 pollen extracts Allergy Unknown UNKOWN Unverified 03/05/24 18:46 Home Medications Medication Instructions Recorded Confirmed Type acetaminophen 325 mg tablet 650 mg PO Q6H PRN Fever greater 01/27/24 03/05/24 History (Tylenol) than 100/Pain acyclovir 400 mg tablet 400 mg PO BID 01/27/24 03/05/24 History bisacodyl 10 mg rectal suppository 10 mg CA DIRECTED PRN 01/27/24 03/05/24 History Constipation cholecalciferol (vitamin D3) 25 25 mcg PO QAM 01/27/24 03/05/24 History mcg (1,000 unit) tablet ciprofloxacin HCl 500 mg tablet 500 mg PO BID 01/27/24 03/05/24 History folic acid 1 mg tablet 1 mg PO QAM 01/27/24 03/05/24 History furosemide 40 mg tablet 40 mg PO QAM 01/27/24 03/05/24 History multivitamin 1 tab PO QAM 01/27/24 03/05/24 History ondansetron 4 mg disintegrating 4 mg PO Q6H PRN NAUSEA/VOMITTING 01/27/24 03/05/24 History tablet pantoprazole 40 mg tablet,delayed 40 mg PO DAILYBB 01/27/24 03/05/24 History release posaconazole 100 mg tablet,delayed See Rx Instructions .Route .COMPLEX 01/27/24 03/05/24 History release sodium phosphates 19 gram-7 118 ml CA DAILY PRN CONSTIPATION 01/27/24 03/05/24 History gram/118 mL enema (Fleet Enema) Magic Mix See Rx Instructions .Route .COMPLEX 03/05/24 03/05/24 History calcium carbonate 500 mg PO QDL 03/05/24 03/05/24 History carbamide peroxide 6.5 % ear drops 5 drp otic (ear) BID 03/05/24 03/05/24 History (Debrox) magnesium hydroxide 400 mg/5 mL 2,400 mg PO DAILY PRN Constipation 03/05/24 03/05/24 History oral suspension (Milk of Magnesia) metoprolol succinate 100 mg 100 mg PO DAILY 03/05/24 03/05/24 History capsule sprinkle, ext. 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 Other Information That Helps Us Care for You: No Feels Safe at Home: Yes Safety Concerns: Feels Safe At This Time Assistive Devices: Cane and Walker Assistive Devices Comment: Shower chair Review of Systems Review of Systems: All systems reviewed & are unremarkable except as noted in HPI & below Physical Exam Constitutional: + ill appearing and + thin Neck: trachea midline, no thyromegaly Respiratory: normal respiratory effort, lungs clear to auscultation Cardiovascular: RRR, no murmur, no edema Gastrointestinal (Abdomen): normal bowel sounds, soft, nontender, no hepatosplenomegaly Results & Data Vital Signs (Past 12 Hours) Vital Signs Temp Pulse Pulse Resp BP Pulse Ox O2 Del Method 03/22/24 09:00 36.8 C 64 18 146/63 H 98 Room Air 03/22/24 04:00 36.7 C 60 16 130/54 L 97 Room Air 03/22/24 00:00 36.8 C 63 16 127/57 L 97 Room Air Laboratory Results 03/22/24 03/21/24 Range/Units 05:10 14:58 Sodium 148 H 147 H (136-145) mmol/L Potassium 3.7 (3.5-5.1) mmol/L Chloride 118 H (98-107) mmol/L Carbon Dioxide 25 (21-32) mmol/L Anion Gap 5 (3-11) BUN 20 (6-23) mg/dl Creatinine 1.37 H (0.6-1.2) mg/dl Est Cr Clr Drug Dosing 31.5 ml/min eGFR 40.52 BUN/Creatinine Ratio 14.6 (10-20) Glucose 78 (70-99(Fasting)) mg/dl Calcium 7.7 L (8.6-10.3) mg/dl Magnesium 1.6 L (1.7-2.4) mg/dl Diagnostic Findings Chest X-Ray 03/05/24 23:16 XR chest 1V portable HISTORY: 73 years-old Female low o2 acute hypoxia COMPARISON: 01/27/2024 TECHNIQUE: AP view of the chest FINDINGS: Cardiac silhouette is enlarged. A battery pack projects over the left chest wall. Pulmonary vascular congestion with interstitial coarsening. Trace right and small left pleural effusions with mild bibasilar densities. Bones appear grossly intact. IMPRESSION: 1. Cardiomegaly with suggestion of interstitial pulmonary edema. 2. Trace right and small left pleural effusions with mild bibasilar atelectasis. ACT 112: Negative or not required by law. The above report was generated using voice recognition software. It may contain grammatical, syntax or spelling errors. Electronically signed by: Og Rogers M.D. 03/06/2024 6:54 AM Venous Doppler Study 03/09/24 12:27 Exam(s): US VENOUS BILATERAL LOWER EXTREMITIES EXAM: US Duplex Bilateral Lower Extremities Veins CLINICAL HISTORY: Reason for exam: ble redness/warmth worsening. ro dvt. TECHNIQUE: Real-time duplex ultrasound scan of the bilateral lower extremity veins integrating B-mode two-dimensional vascular structure, Doppler spectral analysis, color flow Doppler imaging and compression. COMPARISON: No relevant prior studies available. FINDINGS: Right deep veins: There is limited assessment of the right mid and distal femoral vein due to edema the calfs are limited due to edema and swelling. There is no DVT as visualized Right superficial veins: Unremarkable. No thrombus in the visualized right great saphenous vein. Left deep veins: Unremarkable. No DVT in the left common femoral, femoral, proximal deep femoral or popliteal veins. The veins demonstrate normal color flow, are normally compressible, with normal phasic flow and/or augmentation response. Left superficial veins: Unremarkable. No thrombus in the visualized left great saphenous vein. Soft tissues: No acute findings. No popliteal cyst. Lymph nodes: A few lymph nodes demonstrated within the right groin not abnormal by size criteria. IMPRESSION: Limited assessment as described, not thrombosis as visualized Electronically signed by: Terrance Calhoun MD 03/09/24 22:19 PM Chest X-Ray 03/10/24 14:46 SINGLE VIEW CHEST CLINICAL HISTORY: Hypoxia FINDINGS: An AP, portable, upright chest radiograph is compared to study dated 03/05/2024. The examination is degraded by portable technique and apical lordotic positioning. A left-sided PICC line is unchanged in position. The heart is enlarged noting atherosclerotic calcification of the thoracic aorta. There is mild pulmonary vascular congestion. This is improved from previous. Scarring/atelectasis is noted at the lung bases. There is trace left pleural effusion. No pneumothorax is seen. The skeletal structures are osteopenic. The bony thorax is grossly intact. Arthritic change is seen in the shoulders. IMPRESSION: 1. Cardiomegaly with mild pulmonary vascular congestion. This has improved from 03/05/2024. 2. A trace left pleural effusion persists. ACT 112: Negative or not required by law. Electronically signed by: Jayce Scott M.D. 03/10/2024 6:36 PM Abdomen/Pelvis CT 03/21/24 15:53 CT abd pelvis wo con CLINICAL HISTORY: Diarrhea TECHNIQUE: Helical axial images of the abdomen and pelvis were obtained. Automated dose lowering techniques and/or adjustment according to patient size were utilized for this exam. This exam was performed without intravenous contrast. CT DOSE: 1107.84 mGy.cm COMPARISON: None available at the time of this dictation. FINDINGS: Lower chest: Cardiomegaly is partially visualized. Relative hypodensity of the blood pool is seen compatible with anemia. Liver: Unremarkable. No focal lesions are seen. Gallbladder and biliary tree: Cholelithiasis is seen without evidence of cholecystitis. No intra- or extrahepatic biliary ductal dilation. Pancreas: Unremarkable, no focal lesions. Spleen: Calcifications are noted in the spleen compatible with prior granulomatous disease. Adrenals: Left adrenal nodule is seen. Kidneys and ureters: Unremarkable. Bladder: Scott catheter is seen. Reproductive organs: Unremarkable. Bowel: There is thickening of the descending and proximal sigmoid colon is seen with surrounding fat stranding. Lymph nodes Retroperitoneal: Unremarkable. Pelvic: Unremarkable. Mesenteric: Unremarkable. Peritoneum: Normal. Vessels: Unremarkable. Abdominal wall: Unremarkable. Bones: Right hip arthroplasty is seen. Degenerative changes are seen in the spine and left hip. IMPRESSION: There is thickening of the wall of the descending and proximal sigmoid colon compatible with a nonspecific colitis. ACT 112: Negative or not required by law. Electronically signed by: Manuel Guerra M.D. 03/21/2024 7:01 PM
[2024-03-22] MEDS: ALTEPLASE, RECOMBINANT 1 MG/ML 2ML VIAL INSTIL ONE (11:16)
--- NOTE | 2024-03-22 14:14 | Hospitalist Progress Note ---
Date of Service March 22, 2024 Assessment & Plan (1) Pancytopenia: Plan Ms. Huizar is a 73-year-old lady with complex medical history of PAF currently not on anticoagulation, HTN, GERD, CML undergoing chemotherapy, chronic pancytopenia, rheumatoid arthritis who was recently admitted at for about a month at [facility] for blast crisis and was also seen by worm raiser during this stay for her acute on chronic CHF who is now admitted for pancytopenia. As per prior hospitalist: Patient was discharged from [facility] to rehab at [facility] where she was able to participate for about 2 weeks; however, op labs revealed hemoglobin 7.5 and platelets of 5 in outpatient lab draw. Patient was noted to be neutropenic, with loose stools and questionable cellulitis. Patient able to complete some treatment for CMML, however, her hospitalization was notably complicated. From a cardiac standpoint, she experienced a fib rvr, was started on daily lasix IV lasix with minimal improvement. Platelets on discharge were 30K and eliquis was discontinued. Patient with fluctuating transaminitis though to be medication related. Patient also treated for staph coag negative UTI and parotitis. Patient with "erythema nodosa lesions n left leg" per review of discharge summary on 02.26. Patient continued on Vanco and Unasyn until 02/22 after undergoing multiple tooth extractions, intensive infectious work up. Acute on chronic pancytopenia 2/2 CMML and chemotherapy Neutropenia CMML AML Bone Marrow Biopsy 01/28 hypercellular marrow, borderline high blasts, marrow reticulin fibrosis Repeat D21 BMBX on 02/25 was performed at [facility] Patient s/p hydrea for cytoreduction, s/p c2 Aza, and completed 14 days venetoclax Double lumen PICC 02/[address] Reyes Transfuse to keep Platelets >10,000 (50K if bleeding), hgb >7.5 --S/P 5 units PRBCs --Prior hospitalist discussed with Dr. Cobos (Oncologist) 03/16, discussing if GCSF is to be administered given prolonged suppression (Dr Auguste [phone]) Discussed with : Patient/Family prefers to Avoid Neupogen Continue Neutropenic precautions Neutropenia slowly improving ANC> 1000 today Continue posaconazole, ciprofloxacin and Acyclovir PPX Continue to hold Eliquis due to thrombocytopenia Pancytopenia continues to improve Continue to monitor CBC daily Needs follow-up with oncology on discharge Stable CBC Palliative care on board Need to readdress goals of care KARLI multifactorial, fluctuating--patient with aggressive diuresis/GI losses from diarrhea Cr 1.3 today Diuretics on hold Monitor volume status Resume torsemide, Aldactone as able Diuretics may have to adjust dosing (3xwk v prn) Ongoing diarrhea, loperamide as needed Will give gentle IV fluids today B/ LE Cellulitis in severe neutropenic patient--improved Erythema nodosa, noted at OSH Multiple pressure ulcers: right buttock, left buttock, coccygeal area POA Patient complained of BLE erythema and 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 No purulent drainage noted. --Venous Doppler: Limited assessment as described, not thrombosis as visualized --Appreciate Wound care, Surgery evals: No surgical intervention at this time -Continue santyl Received 7 days course of Dapto and cefepime, appreciate ID input Resumed chronic suppressive meds ciprofloxacin, acyclovir Volume overload, c/f Acute on chronic heart failure with preserved EF v iatrogenic/hypoalbuminemia Patient transfusion dependent at this time Replace electrolytes PO given concern for additional volume from IV replacement ECHO reviewed with mild LVH, EF 55-60%, grade II DDfx, pulm htn Appreciate cardiology input IV diuretics discontinued Resume p.o. diuretics as able Monitor renal function, electrolytes, volume status Currently clinically dehydrated Oral thrush Continue nystatin Paroxysmal Atrial fibrillation Continue Metoprolol Currently not on anticoagulation due to thrombocytopenia Mild hypernatremia: Poor oral intake Sodium 148 today Monitor Encourage increased oral intake Diarrhea, nausea, vomiting Norovirus gastroenteritis --CT ABD:There is thickening of the wall of the descending and proximal sigmoid colon compatible with a nonspecific colitis. D/c mag oxide given diarrhea Stool studies positive for norovirus, negative for C. difficile Appreciate GI input Loperamide as needed Added cholestyramine Electrolyte abnormalities [hypokalemia and hypomagnesemia]: Likely secondary to above Encourage po intake, PO replacement as able Other chronic medical conditions: Continue with/resume home meds as when able. PAF, patient NSR, currently not on anticoagulation due to thrombocytopenia. Hypertension, BP on the lower side , metoprolol dose decreased at presentation GERD Rheumatoid arthritis as per records DVT Px: SCDs Re: Thrombocytopenia Code Status DNR/DNI Family Contact: Patient daughter Ms. Alma Dillard, contact #[phone]. Disposition SNF as able Admission and Anticipated Discharge Date Admission Date: March 05, 2024 Subjective Patient is seen and examined at bedside No new complaints Still has nausea, vomiting, diarrhea States abdominal discomfort resolved after bowel movement today Discussed with GI Updated patient's daughter in detail over the phone Denies any chest pain, dyspnea, dizziness Review of Systems Review of Systems: All systems reviewed & are unremarkable except as noted in Subjective Physical Exam Physical Exam: Physical Exam: Vitals signs as noted above General Appearance:Thin, frail, no apparent distress, chronic ill appearing Head: normocephalic, Atraumatic Eyes: normal inspection, EOMI Neck: supple, Trachea midline Respiratory/Chest: Normal breath sounds, CTA, No accessory muscle use Cardiovascular: S1, S2, No murmur Abdomen/GI:Soft, Non tender, Bowel sounds present Extremities/Musculoskeletal:normal inspection, 1-2+ edema Neurologic/Psych:AAOX3, grossly no focal neurological deficits Skin: normal color, warm Results & Data Results & Data Vital Signs (Past 12 Hours) Vital Signs Temp Pulse Pulse Resp BP BP Pulse Ox 03/22/24 11:41 36.9 C 60 18 129/63 98 03/22/24 09:00 36.8 C 64 18 146/63 H 98 03/22/24 04:00 36.7 C 60 16 130/54 L 97 O2 Del Method 03/22/24 11:41 Room Air 03/22/24 09:00 Room Air 03/22/24 04:00 Room Air Laboratory Results BMP 03/21/24 03/22/24 14:58 05:10 Sodium 147 H 148 H Potassium 3.7 Chloride 118 H Carbon Dioxide 25 BUN 20 Creatinine 1.37 H Glucose 78 Calcium 7.7 L
[2024-03-22] MEDS: CHOLESTYRAMINE LIGHT 4 GM PKT PO SCH (21:19)
[2024-03-23] MEDS ORDERED: POLYETHYLENE (MIRALAX) 17 GM PACK PO PRN (05:21)
[2024-03-23] MEDS: POLYETHYLENE (MIRALAX) 17 GM PACK PO STA (06:09)
[2024-03-23] MEDS: DOCUSATE SODIUM/SENNA 50/8.6MG TAB PO SCH (06:10)
[2024-03-23 06:28] LABS: Hematocrit (blood only) 25.6 % (37.0-47.0); Hemoglobin 7.9 g/dl (12.0-16.0); Mean Corpuscular Hemoglobin 28.4 pg (25.0-34.0); Mean Corpuscular Hgb Conc 30.9 g/dL (32.0-36.0); Mean Corpuscular Volume 92.1 fL (80.0-100.0); Mean Platelet Volume 11.3 fL (9.4-12.4); Platelet Count 82 K/uL (130-400); RDW Coefficient of Variation 17.7 % (11.5-14.5); RDW Standard Deviation 52.5 fL (36.4-46.3); Red Blood Count 2.78 M/uL (4.20-5.40)
[2024-03-23 06:52] LABS: Calcium 7.4 mg/dl (8.6-10.3); Creatinine Clr Calc Pharmacy 35.2 ml/min; Magnesium 1.5 mg/dl (1.7-2.4); Potassium 3.1 mmol/L (3.5-5.1)
[2024-03-23 07:53] LABS: ALC (manual) 1.05 K/uL (1.2-3.4); ANC (manual) 0.88 K/uL (1.4-6.5); Blast # (manual) 0.04 K/uL (0-0); Blast Cells % (manual) 2 %; Eosinophils # (manual) 0.04 K/uL (0-0.50); Eosinophils % (manual) 2 %; Lymphocytes # (manual) 1.05 K/uL (1.2-3.4); Lymphocytes % (manual) 50 %; Monocytes # (manual) 0.08 K/uL (0.11-0.59); Monocytes % (manual) 4 %; Neutrophils # (manual) 0.88 K/uL (1.40-6.50); Neutrophils % (manual) 42 %
[2024-03-23] MEDS: POTASSIUM CHLORIDE 20 MEQ/15 ML UDC PO SCH (10:10)
[2024-03-23] MEDS: D5W AND 1/2NSS + 20MEQ KCL 20 MEQ/1,000 ML BAG IV ONE (10:29)
[2024-03-23] MEDS: MAGNESIUM SULFATE / D5W 1 GM/100 ML BAG IV ONE (10:30)
--- NOTE | 2024-03-23 11:22 | Gastroenterology Progress Note ---
Date of Service March 23, 2024 Assessment & Plan (1) Diarrhea: Plan: GI issues improving on cholestyramine and imodium. Nothing further to add right now Admission and Anticipated Discharge Date Admission Date: March 05, 2024 Subjective Feeling better, stools forming up. No vomiting but getting "white mucus out of mouth" and "white mucus with blood out of nose" Physical Exam Constitutional: WD/WN, vitals as above Results & Data Vital Signs (Past 12 Hours) Vital Signs Temp Pulse Pulse Resp BP BP Pulse Ox 03/23/24 07:37 36.5 C 66 16 136/55 L 100 03/23/24 04:00 36.9 C 66 16 129/62 98 03/22/24 23:27 65 O2 Del Method 03/23/24 07:37 Room Air 03/23/24 04:00 Room Air 03/22/24 23:27
--- NOTE | 2024-03-23 13:30 | Hospitalist Progress Note ---
Date of Service March 23, 2024 Assessment & Plan (1) Pancytopenia: Plan Ms. Huizar is a 73-year-old lady with complex medical history of PAF currently not on anticoagulation, HTN, GERD, CML undergoing chemotherapy, chronic pancytopenia, rheumatoid arthritis who was recently admitted at for about a month at [facility] for blast crisis and was also seen by coat maker during this stay for her acute on chronic CHF who is now admitted for pancytopenia. As per prior hospitalist: Patient was discharged from [facility] to rehab at [facility] where she was able to participate for about 2 weeks; however, op labs revealed hemoglobin 7.5 and platelets of 5 in outpatient lab draw. Patient was noted to be neutropenic, with loose stools and questionable cellulitis. Patient able to complete some treatment for CMML, however, her hospitalization was notably complicated. From a cardiac standpoint, she experienced a fib rvr, was started on daily lasix IV lasix with minimal improvement. Platelets on discharge were 30K and eliquis was discontinued. Patient with fluctuating transaminitis though to be medication related. Patient also treated for staph coag negative UTI and parotitis. Patient with "erythema nodosa lesions n left leg" per review of discharge summary on 02.26. Patient continued on Vanco and Unasyn until 02/22 after undergoing multiple tooth extractions, intensive infectious work up. 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 Reyes Transfuse to keep Platelets >10,000 (50K if bleeding), hgb >7.5 --S/P 5 units PRBCs --Prior hospitalist discussed with Dr. Cobos (Oncologist) 03/16, discussing if GCSF is to be administered given prolonged suppression (Dr Auguste [phone]) Discussed with : Patient/Family prefers to Avoid Neupogen Continue Neutropenic precautions Neutropenia slowly improving ANC> 880 today Continue posaconazole, ciprofloxacin and Acyclovir PPX Continue to hold Eliquis due to thrombocytopenia Pancytopenia continues to improve Continue to monitor CBC daily Needs follow-up with oncology on discharge Plan to discharge to rehab facility as able KARLI multifactorial, fluctuating--patient with aggressive diuresis/GI losses from diarrhea Cr 1.23 today Diuretics on hold Monitor volume status Resume torsemide, Aldactone as able Diuretics may have to adjust dosing (3xwk v prn) Give gentle IV fluids Diarrhea slowly improving B/ LE Cellulitis in severe neutropenic patient--improved Erythema nodosa, noted at OSH Multiple pressure ulcers: right buttock, left buttock, coccygeal area POA Patient complained of BLE erythema and warmth for 3 to 4 days [employer]UAL [employer]; 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 No purulent drainage noted. --Venous Doppler: Limited assessment as described, not thrombosis as visualized --Appreciate Wound care, Surgery evals: No surgical intervention at this time -Continue santyl Received 7 days course of Dapto and cefepime, appreciate ID input Resumed chronic suppressive meds ciprofloxacin, acyclovir Hypokalemia Hypernatremia Hypomagnesemia Likely due to GI losses, poor oral intake Replete and monitor electrolytes as needed IV fluids as needed Sodium 149 today Volume overload, c/f Acute on chronic heart failure with preserved EF v iatrogenic/hypoalbuminemia Patient transfusion dependent at this time Replace electrolytes PO given concern for additional volume from IV replacement ECHO reviewed with mild LVH, EF 55-60%, grade II DDfx, pulm htn Appreciate cardiology input IV diuretics discontinued Resume p.o. diuretics as able Monitor renal function, electrolytes, volume status Oral thrush Continue nystatin Paroxysmal Atrial fibrillation Continue Metoprolol Currently not on anticoagulation due to thrombocytopenia Diarrhea, nausea, vomiting Norovirus gastroenteritis --CT ABD:There is thickening of the wall of the descending and proximal sigmoid colon compatible with a nonspecific colitis. D/c mag oxide given diarrhea Stool studies positive for norovirus, negative for C. difficile Appreciate GI input Loperamide as needed Added cholestyramine Diarrhea slowly improving Other chronic medical conditions: Continue with/resume home meds as when able. PAF, patient NSR, currently not on anticoagulation due to thrombocytopenia. Hypertension, BP on the lower side , metoprolol dose decreased at presentation GERD Rheumatoid arthritis as per records DVT Px: SCDs Re: Thrombocytopenia Code Status DNR/DNI Family Contact: Patient daughter Ms. Alma Dillard, contact #[phone]. Disposition SNF as able Admission and Anticipated Discharge Date Admission Date: March 05, 2024 Subjective Patient is seen and examined at bedside Diarrhea improving Sitting in chair during my encounter Offers no new complaints Tried to reach family over the phone--no answer when called Denies any chest pain, dyspnea, dizziness, abdominal pain Review of Systems Review of Systems: All systems reviewed & are unremarkable except as noted in Subjective Physical Exam Physical Exam: Physical Exam: Vitals signs as noted above General Appearance:Thin, frail, no apparent distress, chronic ill appearing Head: normocephalic, Atraumatic Eyes: normal inspection, EOMI Neck: supple, Trachea midline Respiratory/Chest: Normal breath sounds, CTA, No accessory muscle use Cardiovascular: S1, S2, No murmur Abdomen/GI:Soft, Non tender, Bowel sounds present Extremities/Musculoskeletal:normal inspection, 1-2+ edema Neurologic/Psych:AAOX3, grossly no focal neurological deficits Skin: normal color, warm Results & Data Results & Data Vital Signs (Past 12 Hours) Vital Signs Temp Pulse Resp BP BP Pulse Ox O2 Del Method 03/23/24 12:00 36.6 C 58 L 18 117/66 98 Room Air 03/23/24 07:37 36.5 C 66 16 136/55 L 100 Room Air 03/23/24 04:00 36.9 C 66 16 129/62 98 Room Air Laboratory Results Short CBC 03/23/24 Range/Units 05:27 WBC 2.10 L (4.8-10.8) K/ul Hgb 7.9 L (12.0-16.0) g/dl Hct 25.6 L (37.0-47.0) % Plt Count 82 L (130-400) K/uL BMP 03/23/24 05:27 Sodium 149 H Potassium 3.1 L Chloride 118 H Carbon Dioxide 25 BUN 16 Creatinine 1.23 H Glucose 63 L Calcium 7.4 L
[2024-03-24 06:47] LABS: BUN Creatinine Ratio 10.9 (10-20); Calcium 7.3 mg/dl (8.6-10.3); Creatinine Clr Calc Pharmacy 36.1 ml/min; Magnesium 1.6 mg/dl (1.7-2.4); Potassium 3.5 mmol/L (3.5-5.1)
--- NOTE | 2024-03-24 16:02 | Hospitalist Progress Note ---
Date of Service March 24, 2024 Assessment & Plan (1) Pancytopenia: Plan Ms. Huizar is a 73-year-old lady with complex medical history of PAF currently not on anticoagulation, HTN, GERD, CML undergoing chemotherapy, chronic pancytopenia, rheumatoid arthritis who was recently admitted at for about a month at [facility] for blast crisis and was also seen by hand roller during this stay for her acute on chronic CHF who is now admitted for pancytopenia. As per prior hospitalist: Patient was discharged from [facility] to rehab at [facility] where she was able to participate for about 2 weeks; however, op labs revealed hemoglobin 7.5 and platelets of 5 in outpatient lab draw. Patient was noted to be neutropenic, with loose stools and questionable cellulitis. Patient able to complete some treatment for CMML, however, her hospitalization was notably complicated. From a cardiac standpoint, she experienced a fib rvr, was started on daily lasix IV lasix with minimal improvement. Platelets on discharge were 30K and eliquis was discontinued. Patient with fluctuating transaminitis though to be medication related. Patient also treated for staph coag negative UTI and parotitis. Patient with "erythema nodosa lesions n left leg" per review of discharge summary on 02.26. Patient continued on Vanco and Unasyn until 02/22 after undergoing multiple tooth extractions, intensive infectious work up. Acute on chronic pancytopenia 2/2 CMML and chemotherapy Neutropenia CMML AML Bone Marrow Biopsy 01/28 hypercellular marrow, borderline high blasts, marrow reticulin fibrosis Repeat D21 BMBX on 02/25 was performed at [facility] Patient s/p hydrea for cytoreduction, s/p c2 Aza, and completed 14 days venetoclax Double lumen PICC 02/[address] Reyes Transfuse to keep Platelets >10,000 (50K if bleeding), hgb >7.5 --S/P 5 units PRBCs --Prior hospitalist discussed with Dr. Coobs (Oncologist) 03/16, discussing if GCSF is to be administered given prolonged suppression (Dr Auguste [phone]) Discussed with : Patient/Family prefers to Avoid Neupogen Continue Neutropenic precautions Neutropenia slowly improving ANC> 880 Continue posaconazole, ciprofloxacin and Acyclovir PPX Continue to hold Eliquis due to thrombocytopenia Pancytopenia continues to improve Continue to monitor CBC daily Needs follow-up with oncology on discharge Plan to discharge to rehab facility when accepted Case management to help with discharge planning KARLI multifactorial, fluctuating--patient with aggressive diuresis/GI losses from diarrhea Cr 1.1 today Diuretics on hold Monitor volume status Resume torsemide, Aldactone as able Diuretics may have to adjust dosing (3xwk v prn) IV fluids as needed Diarrhea improved B/ LE Cellulitis in severe neutropenic patient--improved Erythema nodosa, noted at OSH Multiple pressure ulcers: right buttock, left buttock, coccygeal area POA Patient complained of BLE erythema and warmth for 3 to 4 days [employer]; 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 No purulent drainage noted. --Venous Doppler: Limited assessment as described, not thrombosis as visualized --Appreciate Wound care, Surgery evals: No surgical intervention at this time -Continue santyl Received 7 days course of Dapto and cefepime, appreciate ID input Resumed chronic suppressive meds ciprofloxacin, acyclovir Hypokalemia Hypernatremia Hypomagnesemia Likely due to GI losses, poor oral intake Replete and monitor electrolytes as needed IV fluids as needed Sodium 146 today Volume overload, c/f Acute on chronic heart failure with preserved EF v iatrogenic/hypoalbuminemia Patient transfusion dependent at this time Replace electrolytes PO given concern for additional volume from IV replacement ECHO reviewed with mild LVH, EF 55-60%, grade II DDfx, pulm htn Appreciate cardiology input IV diuretics discontinued Resume p.o. diuretics as able Monitor renal function, electrolytes, volume status Oral thrush Continue nystatin Paroxysmal Atrial fibrillation Continue Metoprolol Currently not on anticoagulation due to thrombocytopenia Diarrhea, nausea, vomiting Norovirus gastroenteritis --CT ABD:There is thickening of the wall of the descending and proximal sigmoid colon compatible with a nonspecific colitis. D/c mag oxide given diarrhea Stool studies positive for norovirus, negative for C. difficile Appreciate GI input Loperamide as needed Added cholestyramine Diarrhea improved Other chronic medical conditions: Continue with/resume home meds as when able. PAF, patient NSR, currently not on anticoagulation due to thrombocytopenia. Hypertension, BP on the lower side , metoprolol dose decreased at presentation GERD Rheumatoid arthritis as per records DVT Px: SCDs Re: Thrombocytopenia Code Status DNR/DNI Family Contact: Patient daughter Ms. Alma Dillard, contact #[phone]. Disposition SNF when accepted Admission and Anticipated Discharge Date Admission Date: March 05, 2024 Subjective Patient is seen and examined at bedside Diarrhea continues to improve Feels anxious intermittently Discussed with patient's daughter over the phone Denies any chest pain, dyspnea, dizziness, abdominal pain Plan to discharge to rehab facility when accepted Review of Systems Review of Systems: All systems reviewed & are unremarkable except as noted in Subjective Physical Exam Physical Exam: Physical Exam: Vitals signs as noted above General Appearance:Thin, frail, no apparent distress, chronic ill appearing Head: normocephalic, Atraumatic Eyes: normal inspection, EOMI Neck: supple, Trachea midline Respiratory/Chest: Normal breath sounds, CTA, No accessory muscle use Cardiovascular: S1, S2, No murmur Abdomen/GI:Soft, Non tender, Bowel sounds present Extremities/Musculoskeletal:normal inspection, 1-2+ edema Neurologic/Psych:AAOX3, grossly no focal neurological deficits Skin: normal color, warm Results & Data Results & Data Vital Signs (Past 12 Hours) Vital Signs Temp Pulse Pulse Resp BP Pulse Ox O2 Del Method 03/24/24 14:52 59 L 03/24/24 11:37 36.8 C 77 18 121/62 97 Room Air 03/24/24 08:00 58 L 03/24/24 08:00 Room Air 03/24/24 07:45 36.8 C 60 20 114/60 96 Room Air Laboratory Results [facility] 03/24/24 06:03 Sodium 146 H Potassium 3.5 Chloride 119 H Carbon Dioxide 23 BUN 13 Creatinine 1.19 Glucose 79 Calcium 7.3 L
[2024-03-25 07:43] LABS: BUN Creatinine Ratio 9.6 (10-20); Calcium 7.3 mg/dl (8.6-10.3); Creatinine Clr Calc Pharmacy 37.7 ml/min; Magnesium 1.4 mg/dl (1.7-2.4); Potassium 3.4 mmol/L (3.5-5.1)
[2024-03-25 08:19] LABS: Hematocrit (blood only) 24.4 % (37.0-47.0); Hemoglobin 7.6 g/dl (12.0-16.0); Mean Corpuscular Hemoglobin 28.7 pg (25.0-34.0); Mean Corpuscular Hgb Conc 31.1 g/dL (32.0-36.0); Mean Corpuscular Volume 92.1 fL (80.0-100.0); Mean Platelet Volume 11.8 fL (9.4-12.4); Platelet Count 78 K/uL (130-400); RDW Coefficient of Variation 18.3 % (11.5-14.5); RDW Standard Deviation 52.9 fL (36.4-46.3); Red Blood Count 2.65 M/uL (4.20-5.40); White Blood Count 2.38 K/ul (4.8-10.8)
[2024-03-25 08:20] LABS: ALC (manual) 0.86 K/uL (1.2-3.4); ANC (manual) 1.38 K/uL (1.4-6.5); Basophils # (manual) 0.02 K/uL (0-0.2); Basophils % (manual) 1 %; Blast # (manual) 0.07 K/uL (0-0); Blast Cells % (manual) 3 %; Lymphocytes # (manual) 0.86 K/uL (1.2-3.4); Lymphocytes % (manual) 36 %; Monocytes # (manual) 0.05 K/uL (0.11-0.59); Monocytes % (manual) 2 %; Neutrophils # (manual) 1.38 K/uL (1.40-6.50); Neutrophils % (manual) 58 %; RBC Morphology Unremarkable
[2024-03-25] MEDS: DEXTROSE 5% 1,000 ML IV SCH (08:30)
[2024-03-25] MEDS: POTASSIUM CHLORIDE CRTAB 20 MEQ TABCR PO STA (12:24)
[2024-03-25] MEDS: POTASSIUM CHLORIDE PWD 20 MEQ PACK PO SCH (12:46)
--- NOTE | 2024-03-25 13:13 | Hospitalist Progress Note ---
Date of Service March 25, 2024 Assessment & Plan (1) Pancytopenia: Plan Ms. Huizar is a 73-year-old lady with complex medical history of PAF currently not on anticoagulation, HTN, GERD, CML undergoing chemotherapy, chronic pancytopenia, rheumatoid arthritis who was recently admitted at for about a month at [facility] for blast crisis and was also seen by licensed sales assistant during this stay for her acute on chronic CHF who is now admitted for pancytopenia. As per prior hospitalist: Patient was discharged from [facility] to rehab at [facility] where she was able to participate for about 2 weeks; however, op labs revealed hemoglobin 7.5 and platelets of 5 in outpatient lab draw. Patient was noted to be neutropenic, with loose stools and questionable cellulitis. Patient able to complete some treatment for CMML, however, her hospitalization was notably complicated. From a cardiac standpoint, she experienced a fib rvr, was started on daily lasix IV lasix with minimal improvement. Platelets on discharge were 30K and eliquis was discontinued. Patient with fluctuating transaminitis though to be medication related. Patient also treated for staph coag negative UTI and parotitis. Patient with "erythema nodosa lesions n left leg" per review of discharge summary on 02.26. Patient continued on Vanco and Unasyn until 02/22 after undergoing multiple tooth extractions, intensive infectious work up. Acute on chronic pancytopenia 2/2 CMML and chemotherapy Bone Marrow Biopsy 01/28 hypercellular marrow, borderline high blasts, marrow reticulin fibrosis Repeat D21 BMBX on 02/25 was performed at [facility] Patient s/p hydrea for cytoreduction, s/p c2 Aza, and completed 14 days venetoclax (last treatment beginning of Feb per daughter) Double lumen PICC 02/[address] Reyes of [facility] Transfuse to keep Platelets >10,000 (50K if bleeding), hgb >7.5 S/P 5 units PRBCs during admission --Prior hospitalist discussed with Dr. Cobos (Oncologist) 03/16, discussing if GCSF is to be administered given prolonged suppression (Dr Auguste [phone]) -- Discussed with Dr. Cobos: Patient/Family prefers to Avoid Neupogen Continue Neutropenic precautions Neutropenia slowly improving ANC> 880 Continue posaconazole, ciprofloxacin and Acyclovir PPX Continue to hold Eliquis due to thrombocytopenia Pancytopenia continues to improve Needs follow-up with oncology on discharge - daughter in close contact with Dr. Reyes Plan to discharge to rehab facility when accepted but had long discussion about chronic illness and failure to thrive picture - daughter/POA and son considering hospice but want a trial of rehab first Case management to help with discharge planning - plan for dc to [facility] tomorrow KARLI -> improved Multifactorial, fluctuating--patient with aggressive diuresis/GI losses from diarrhea Cr 1.1 today (Cr baseline ~0.9-1) Diuretics on hold Monitor volume status Resume torsemide, Aldactone as able Diuretics may have to adjust dosing (3xwk v prn) IV fluids as needed Diarrhea improved B/ LE Cellulitis in severe neutropenic patient -> improved Erythema nodosa, noted at OSH Multiple pressure ulcers: right buttock, left buttock, coccygeal area POA Patient complained of BLE erythema and warmth for 3 to 4 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 No purulent drainage noted. --Venous Doppler: Limited assessment as described, not thrombosis as visualized --Appreciate Wound care, Surgery evals: No surgical intervention at this time -Continue santyl Received 7 days course of Dapto and cefepime, appreciate ID input Resumed chronic suppressive meds ciprofloxacin, acyclovir Hypokalemia Hypernatremia Hypomagnesemia Likely due to GI losses, poor oral intake, ? failure to thrive Started on D5 at 80ml/hr with repeat BMP @ 1900 Replete and monitor electrolytes as needed Volume overload, c/f Acute on chronic heart failure with preserved EF v iatrogenic/hypoalbuminemia Patient transfusion-dependent at this time Replace electrolytes PO given concern for additional volume from IV replacement ECHO reviewed with mild LVH, EF 55-60%, grade II DDfx, pulm htn Appreciate cardiology input IV diuretics discontinued Resume p.o. diuretics as able Monitor renal function, electrolytes, volume status Oral thrush Continue nystatin Paroxysmal Atrial fibrillation Continue Metoprolol Currently not on anticoagulation due to thrombocytopenia Diarrhea, nausea, vomiting -> improved Norovirus gastroenteritis per 10/[address] ABD:There is thickening of the wall of the descending and proximal sigmoid colon compatible with a nonspecific colitis D/c mag oxide given diarrhea Stool studies positive for norovirus, negative for C. difficile Appreciate GI input Loperamide as needed Added cholestyramine Diarrhea improved Other chronic medical conditions: Continue with/resume home meds as when able. PAF, patient NSR, currently not on anticoagulation due to thrombocytopenia. Hypertension, BP on the lower side , metoprolol dose decreased at presentation GERD Rheumatoid arthritis as per records DVT Ppx: SCDs Re: Thrombocytopenia Code Status: DNR/DNI Disposition : Accepted to [facility], plan for discharge tomorrow Family Contact: Patient daughter Ms. Alma Dillard, contact #[phone]. Patient seen in collaboration with Dr. Gan. Please see addendum. I spent a total of 6- minutes coordinating, documenting, and providing care for this patient excluding time spent in the performance of separately billed services. Admission and Anticipated Discharge Date Admission Date: March 05, 2024 Supervising Physician Co-Signing Physician Notes Patient seen and examined independently. Patient reports she is tired and fatigued today and feels dehydrated. Lab work reveals hypernatremia and hypokalemia. Started on D5 and potassium supplement Possible DC in a.m. if improvement in electrolytes is seen. I have reviewed the advanced practitioner's documentation, and I agree with, and take responsibility for the plan of care I spent a total of 15 minutes coordinating, documenting, and providing care for this patient excluding time spent in the performance of separately billed services. All of the aforementioned completed while collaborating with the assigned advanced practitioner for a full treatment plan Subjective Patient is seen and examined at bedside. Feels better overall, still with intermittent anxiety, poor insight to chronic health conditions. Denies any chest pain, dyspnea, dizziness, abdominal pain. Long discussion over the phone with daughter/POA as well as son/[id number] and case technician at bedside. Has a bed at [facility], plan for dc tomorrow. Review of Systems Review of Systems: At least ten systems reviewed and negative except as noted in the HPI. Results & Data Results & Data Vital Signs (Past 12 Hours) Vital Signs Temp Pulse Resp BP Pulse Ox O2 Del Method 03/25/24 09:11 Room Air 03/25/24 07:01 36.7 C 81 16 109/64 97 Room Air Laboratory Results Short CBC 03/25/24 Range/Units 06:15 WBC 2.38 L (4.8-10.8) K/ul Hgb 7.6 L (12.0-16.0) g/dl Hct 24.4 L (37.0-47.0) % Plt Count 78 L (130-400) K/uL BMP 03/25/24 06:15 Sodium 147 H Potassium 3.4 L Chloride 120 H Carbon Dioxide 24 BUN 11 Creatinine 1.14 Glucose 71 Calcium 7.3 L Diagnostic Findings Chest X-Ray 03/05/24 23:16 XR chest 1V portable HISTORY: 73 years-old Female low o2 acute hypoxia COMPARISON: 01/27/2024 TECHNIQUE: AP view of the chest FINDINGS: Cardiac silhouette is enlarged. A battery pack projects over the left chest wall. Pulmonary vascular congestion with interstitial coarsening. Trace right and small left pleural effusions with mild bibasilar densities. Bones appear grossly intact. IMPRESSION: 1. Cardiomegaly with suggestion of interstitial pulmonary edema. 2. Trace right and small left pleural effusions with mild bibasilar atelectasis. ACT 112: Negative or not required by law. The above report was generated using voice recognition software. It may contain grammatical, syntax or spelling errors. Electronically signed by: Og Rogers M.D. 03/06/2024 6:54 AM Venous Doppler Study 03/09/24 12:27 Exam(s): US VENOUS BILATERAL LOWER EXTREMITIES EXAM: US Duplex Bilateral Lower Extremities Veins CLINICAL HISTORY: Reason for exam: ble redness/warmth worsening. ro dvt. TECHNIQUE: Real-time duplex ultrasound scan of the bilateral lower extremity veins integrating B-mode two-dimensional vascular structure, Doppler spectral analysis, color flow Doppler imaging and compression. COMPARISON: No relevant prior studies available. FINDINGS: Right deep veins: There is limited assessment of the right mid and distal femoral vein due to edema the calfs are limited due to edema and swelling. There is no DVT as visualized Right superficial veins: Unremarkable. No thrombus in the visualized right great saphenous vein. Left deep veins: Unremarkable. No DVT in the left common femoral, femoral, proximal deep femoral or popliteal veins. The veins demonstrate normal color flow, are normally compressible, with normal phasic flow and/or augmentation response. Left superficial veins: Unremarkable. No thrombus in the visualized left great saphenous vein. Soft tissues: No acute findings. No popliteal cyst. Lymph nodes: A few lymph nodes demonstrated within the right groin not abnormal by size criteria. IMPRESSION: Limited assessment as described, not thrombosis as visualized Electronically signed by: Terrance Calhoun MD 03/09/24 22:19 PM Chest X-Ray 03/10/24 14:46 SINGLE VIEW CHEST CLINICAL HISTORY: Hypoxia FINDINGS: An AP, portable, upright chest radiograph is compared to study dated 03/05/2024. The examination is degraded by portable technique and apical lordotic positioning. A left-sided PICC line is unchanged in position. The heart is enlarged noting atherosclerotic calcification of the thoracic aorta. There is mild pulmonary vascular congestion. This is improved from previous. Scarring/atelectasis is noted at the lung bases. There is trace left pleural effusion. No pneumothorax is seen. The skeletal structures are osteopenic. The bony thorax is grossly intact. Arthritic change is seen in the shoulders. IMPRESSION: 1. Cardiomegaly with mild pulmonary vascular congestion. This has improved from 03/05/2024. 2. A trace left pleural effusion persists. ACT 112: Negative or not required by law. Electronically signed by: Jayce Scott M.D. 03/10/2024 6:36 PM Abdomen/Pelvis CT 03/21/24 15:53 CT abd pelvis wo con CLINICAL HISTORY: Diarrhea TECHNIQUE: Helical axial images of the abdomen and pelvis were obtained. Automated dose lowering techniques and/or adjustment according to patient size were utilized for this exam. This exam was performed without intravenous contrast. CT DOSE: 1107.84 mGy.cm COMPARISON: None available at the time of this dictation. FINDINGS: Lower chest: Cardiomegaly is partially visualized. Relative hypodensity of the blood pool is seen compatible with anemia. Liver: Unremarkable. No focal lesions are seen. Gallbladder and biliary tree: Cholelithiasis is seen without evidence of cholecystitis. No intra- or extrahepatic biliary ductal dilation. Pancreas: Unremarkable, no focal lesions. Spleen: Calcifications are noted in the spleen compatible with prior granulomatous disease. Adrenals: Left adrenal nodule is seen. Kidneys and ureters: Unremarkable. Bladder: Scott catheter is seen. Reproductive organs: Unremarkable. Bowel: There is thickening of the descending and proximal sigmoid colon is seen with surrounding fat stranding. Lymph nodes Retroperitoneal: Unremarkable. Pelvic: Unremarkable. Mesenteric: Unremarkable. Peritoneum: Normal. Vessels: Unremarkable. Abdominal wall: Unremarkable. Bones: Right hip arthroplasty is seen. Degenerative changes are seen in the spine and left hip. IMPRESSION: There is thickening of the wall of the descending and proximal sigmoid colon compatible with a nonspecific colitis. ACT 112: Negative or not required by law. Electronically signed by: Manuel Guerra M.D. 03/21/2024 7:01 PM
[2024-03-25] MEDS: MAGNESIUM SULFATE / D5W 1 GM/100 ML BAG IV ONE (15:25)
[2024-03-25 20:08] LABS: Hematocrit (blood only) 23.6 % (37.0-47.0); Hemoglobin 7.4 g/dl (12.0-16.0)
[2024-03-25 20:19] LABS: BUN Creatinine Ratio 9.8 (10-20); Creatinine Clr Calc Pharmacy 38.4 ml/min; Potassium 3.4 mmol/L (3.5-5.1)
[2024-03-25] MEDS: CIPROFLOXACIN 500 MG TAB PO SCH (22:06)
[2024-03-26] MEDS ORDERED: SODIUM CHLORIDE 0.9% 100 ML IV PRN (06:33)
[2024-03-26] MEDS: ACETAMINOPHEN 325 MG TAB PO STA (07:19)
[2024-03-26] MEDS: POTASSIUM CHLORIDE CRTAB 20 MEQ TABCR PO STA (07:29)
[2024-03-26 14:46] VITALS: BP 132/70; PULSE 68; RESP 16; TEMP 98.2; O2SAT 97
--- NOTE | 2024-03-26 15:25 | Discharge Summary ---
Discharge Summary Date of Service March 26, 2024 Principal Dx & Hospital Course #1 = Principal Diagnosis (1) Pancytopenia: (2) Acute on chronic diastolic HF (heart failure): (3) Cellulitis of leg: (4) Advanced care planning/counseling discussion: (5) CMML (chronic myelomonocytic leukemia): Plan Ms. Huizar is a 73-year-old lady with complex medical history of PAF currently not on anticoagulation, HTN, GERD, CML undergoing chemotherapy, chronic pancytopenia, rheumatoid arthritis who was recently admitted at for about a month at [facility] [place] for blast crisis and was also seen by concrete wall grinder operator during this stay for her acute on chronic CHF who is now admitted for pancytopenia. As per prior hospitalist: Patient was discharged from [facility] to rehab at [facility] where she was able to participate for about 2 weeks; however, op labs revealed hemoglobin 7.5 and platelets of 5 in outpatient lab draw. Patient was noted to be neutropenic, with loose stools and questionable cellulitis. Patient able to complete some treatment for CMML, however, her hospitalization was notably complicated. From a cardiac standpoint, she experienced a fib rvr, was started on daily lasix IV lasix with minimal improvement. Platelets on discharge were 30K and eliquis was discontinued. Patient with fluctuating transaminitis though to be medication related. Patient also treated for staph coag negative UTI and parotitis. Patient with "erythema nodosa lesions n left leg" per review of discharge summary on 02.26. Patient continued on Vanco and Unasyn until 02/22 after undergoing multiple tooth extractions, intensive infectious work up. Acute on chronic pancytopenia 2/2 CMML and chemotherapy Bone Marrow Biopsy 01/28 hypercellular marrow, borderline high blasts, marrow reticulin fibrosis Repeat D21 BMBX on 02/25 was performed at [facility] Patient s/p hydrea for cytoreduction, s/p c2 Aza, and completed 14 days venetoclax (last treatment beginning of Feb per daughter) Double lumen PICC 02/[address] Reyes of [facility] Transfuse to keep Platelets >10,000 (50K if bleeding), hgb >7.5 S/P 6 units PRBCs during admission --Prior hospitalist discussed with Dr. Cobos (Oncologist) 03/16, discussing if GCSF is to be administered given prolonged suppression (Dr Auguste [phone]) -- Discussed with Dr. Cobos: Patient/Family prefers to Avoid Neupogen Continue Neutropenic precautions Neutropenia slowly improving ANC> 880 Continue posaconazole, ciprofloxacin and Acyclovir PPX Continue to hold Eliquis due to thrombocytopenia Pancytopenia continues to improve Needs follow-up with oncology on discharge - daughter in close contact with Dr. Reyes - need to address PICC line Had long discussion about chronic illness and failure to thrive picture - daughter/POA and son considering hospice but want a trial of rehab first DC to 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 No purulent drainage noted. --Venous Doppler: Limited assessment as described, not thrombosis as visualized --Appreciate Wound care, Surgery evals: No surgical intervention at this time -Continue santyl Received 7 days course of Dapto and cefepime, appreciate ID input Resumed chronic suppressive meds ciprofloxacin, acyclovir Hypokalemia Hypernatremia Hypomagnesemia Likely due to GI losses, poor oral intake, ? failure to thrive Started on D5 at 80ml/hr with repeat BMP @ 1900 Discharging on potassium and magnesium supplements Replete and monitor electrolytes as needed Volume overload, c/f Acute on chronic heart failure with preserved EF v iatrogenic/hypoalbuminemia Patient transfusion-dependent at this time Replace electrolytes PO given concern for additional volume from IV replacement ECHO reviewed with mild LVH, EF 55-60%, grade II DDfx, pulm htn Appreciate cardiology input IV diuretics discontinued Resume p.o. diuretics as able Monitor renal function, electrolytes, volume status Paroxysmal Atrial fibrillation Continue Metoprolol Currently not on anticoagulation due to thrombocytopenia Diarrhea, nausea, vomiting -> improved Norovirus gastroenteritis per 03/[address] ABD:There is thickening of the wall of the descending and proximal sigmoid colon compatible with a nonspecific colitis D/c mag oxide given diarrhea Stool studies positive for norovirus, negative for C. difficile Appreciate GI input Loperamide as needed Added cholestyramine Diarrhea improved Other chronic medical conditions: Continue with/resume home meds as when able. PAF, patient NSR, currently not on anticoagulation due to thrombocytopenia. Hypertension, BP on the lower side , metoprolol dose decreased at presentati on GERD Rheumatoid arthritis as per records Touched based with daughter/POA Alma Dillard, contact #[phone] prior to discharge. Notes For Next Care Provider Acute on chronic pancytopenia 2/2 CMML and chemotherapy Electrolyte abn in setting of poor PO intake, diarrhea Medication Changes From Visit Hold furosemide for now given PO losses. Hold Eliquis given thrombocytopenia. Continue potassium and magnesium supplementation. Continue PRN loperamide, cholestyramine for diarrhea Admission HPI Per Admitting Provider History obtained from patient, family, and records. Medical history significant for PAF currently not on anticoagulation, hypertension, GERD, CML ongoing chemotherapy on anti-infective prophylaxis, chronic pancytopenia, rheumatoid arthritis. Recent [facility] ER visit last January 2024 for acute CHF and blast crisis. Patient transferred to [facility] in [place] for further management. Patient subsequently confined for 1 month. Patient seen by concrete wall grinder operator during stay as per family. Patient told cancer issues were more serious than heart problem as per family. Patient discharged to [facility] facility for rehab 2 weeks ago. Patient directed to ER today because of hemoglobin of 7.5, platelets of 5 on outpatient blood draw yesterday. Patient denies unusual chest pain, SOB, or bleeding symptoms. Loose stools as per patient. Has actually lost more than 20 pounds since confinement at [facility] as per patient. Lowest O2 sats of 80s documented at the ER. 1 unit PRBC transfused at the ER. 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 Admission Exam Per Admitting Provider GENERAL: uncomfortable, episodic tachypnea, anxious, no respiratory distress SKIN: Pallor, warm HEENT: Pale palpebral conjunctivae, no ptosis, dry buccal mucosa, nasal cannula in place NECK : Supple, no tenderness CHEST : Decreased breath sounds, no tenderness HEART : tachycardic, no obvious murmurs ABDOMEN: Some distention, nontender EXTREMITIES : Bilateral LE erythema without tenderness, no other conspicuous deformities noted NEUROLOGIC : Coherent, no facial asymmetry, no other gross focality Discharge Exam General Appearance:Thin, frail, no apparent distress, chronic ill appearing, poor insight Head: normocephalic, Atraumatic Eyes: normal inspection, EOMI Neck: supple, Trachea midline Respiratory/Chest: Normal breath sounds, CTA, No accessory muscle use Cardiovascular: S1, S2 Abdomen/GI:Soft, Non tender, Bowel sounds present Extremities/Musculoskeletal:normal inspection, 1+ edema Neurologic/Psych:AAOX2 , grossly no focal neurological deficits Skin: normal color, warm Updated Medication List Medication Instructions Recorded Confirmed Type acetaminophen 325 mg tablet 650 mg PO Q6H PRN Fever greater 01/27/24 03/05/24 History (Tylenol) than 100/Pain acyclovir 400 mg tablet 400 mg PO BID 01/27/24 03/05/24 History bisacodyl 10 mg rectal suppository 10 mg WI DIRECTED PRN 01/27/24 03/05/24 History Constipation cholecalciferol (vitamin D3) 25 25 mcg PO QAM 01/27/24 03/05/24 History mcg (1,000 unit) tablet ciprofloxacin HCl 500 mg tablet 500 mg PO BID 01/27/24 03/05/24 History folic acid 1 mg tablet 1 mg PO QAM 01/27/24 03/05/24 History furosemide 40 mg tablet 40 mg PO QAM 01/27/24 03/05/24 History multivitamin 1 tab PO QAM 01/27/24 03/05/24 History ondansetron 4 mg disintegrating 4 mg PO Q6H PRN NAUSEA/VOMITTING 01/27/24 03/05/24 History tablet pantoprazole 40 mg tablet,delayed 40 mg PO DAILYBB 01/27/24 03/05/24 History release posaconazole 100 mg tablet,delayed See Rx Instructions .Route .COMPLEX 01/27/24 03/05/24 History release sodium phosphates 19 gram-7 118 ml WI DAILY PRN CONSTIPATION 01/27/24 03/05/24 History gram/118 mL enema (Fleet Enema) Magic Mix See Rx Instructions .Route .COMPLEX 03/05/24 03/05/24 History calcium carbonate 500 mg PO QDL 03/05/24 03/05/24 History carbamide peroxide 6.5 % ear drops 5 drp otic (ear) BID 03/05/24 03/05/24 History (Debrox) magnesium hydroxide 400 mg/5 mL 2,400 mg PO DAILY PRN Constipation 03/05/24 03/05/24 History oral suspension (Milk of Magnesia) metoprolol succinate 100 mg 100 mg PO DAILY 03/05/24 03/05/24 History capsule sprinkle, ext. release 24 hr polyvinyl alcohol 1.4 % eye drops 1 drp OPB Q8H Blepharitis 03/05/24 03/05/24 History (Artificial Tears (polyvinyl alcohol)) L.acidop,casei,lactis,rham-B.lact,patricia 1 cap PO DAILY #30 caps 03/26/24 Rx 625 mg (10 billion cell) capsule (Advanced Probiotic) cholestyramine-aspartame 4 gram 1 ea PO BID #60 ea 03/26/24 Rx oral powder for susp in a packet (Prevalite) loperamide 2 mg capsule 2 mg PO Q6H PRN loose stool #30 03/26/24 Rx caps magnesium oxide 200 mg PO BID #30 tabs 03/26/24 Rx potassium chloride 20 mEq/15 mL 20 meq (15 mL) PO BID #1,200 mL 03/26/24 Rx oral liquid Hospital Stay Data Consultations 03/05/24 22:49 ED Decision to Admit Stat 03/06/24 03:11 Consult Hematology Routine 03/06/24 06:45 HIM [Consult Health Information Management] Routine 03/06/24 10:22 Consult Infectious Diseases Routine Consult Palliative Care Routine 03/06/24 12:56 Consult General Surgery Routine 03/10/24 14:23 Consult Cardiology Routine 03/22/24 09:29 Consult Gastroenterology Routine Diagnostic Imagining Performed 03/09/24 12:27 US venous doppler LE BI Urgent 03/21/24 15:53 CT Abd and Pelvis [CT abd pelvis wo con] Routine Pending Results Patient Have Any Pending Studies at Discharge: No Discharge Instructions Given to Patient (Per Discharging Provider) MEDICATION CHANGES: Hold furosemide for now given PO losses. Hold Eliquis given thrombocytopenia. Continue potassium and magnesium supplementation. Continue PRN loperamide, cholestyramine for diarrhea SUMMARY OF TEST RESULTS: You were admitted for acute on chronic low blood counts in setting of CMML and chemotherapy. You have received 6 units of packed red blood cells during admission Neutropenia is slowly improving Continue to hold Eliquis due to thrombocytopenia Continue posaconazole, ciprofloxacin and Acyclovir PPX for chronic suppressive therapy Completed course of Dapto and cefepime per ID recommendation for bilateral cellulitis Multifactorial diarrhea with history of norovirus 03/06, c diff negative. Holding diuretics, replenishing electrolytes and encouraging PO intake, PRN Loperamide, added cholestyramine Encourage PO intake PENDING TEST RESULTS: None RECOMMENDATIONS FOR FOLLOW-UP: Follow up with PCP as scheduled. Follow up with Dr. Reyes of [facility] at time of discharge for discussion of prognosis and continued treatment in setting of failure to thrive versus transition to a comfort-based approach. Case management to coordinate with SNF regarding interest in more information re garding hospice. Please address need for PICC line with Dr. Reyes - remove if no longer needed for treatment. Continue medication regimen as scheduled aside from changes noted above. OTHER INSTRUCTIONS: Seek medical attention if you have: * temperature above 101 * chest pain or trouble breathing * abdominal pain, nausea, vomiting * diarrhea, dark stools or bloody stools * any unanswered questions or concerns Call 911 if symptoms are severe. Please take good care of yourself. Call if you have any questions or problems. You can reach a [facility] hospitalist on duty at [facility] 24 hours a day by calling [phone]. Total Time Total Time Spent Total Time Spent (In Minutes): 65 Supervising Physician Co-Signing Physician Notes Patient seen and examined at bedside. She reports that she is feeling much better. Patient to be discharged to rehab. She wants to keep the PICC line for now; plan to discontinue it after making decision regarding whether to continue with chemotherapy or not. I have reviewed the advanced practitioner's documentation, and I agree with, and take responsibility for the plan of care I spent a total of 35 minutes coordinating, documenting, and providing care for this patient excluding time spent in the performance of separately billed services. All of the aforementioned completed while collaborating with the assigned advanced practitioner for a full treatment plan
== END 2024-03-26 16:26 | DRG 808 ==
LOC: ED 11:39 → SUATTDRO 23:52 → 2S 23:52 → 3N 03-24 18:10